=== PATIENT | male | born 1965 | race Caucasian/White ===

== ENCOUNTER 2022-11-18 11:58 | Inpatient (IN) | payer MEDICARE, SELFPAY ==
--- NOTE | ~2022-11-18 | XR_ITS ---
EXAMINATION: XR CHEST CLINICAL INFORMATION: Shortness of breath. COMPARISON: None available. TECHNIQUE: Frontal view of the chest was obtained. FINDINGS: Mild bibasilar linear markings are seen. There is minimal blunting of the left costophrenic angle. The upper lung [place] are clear. The heart and mediastinal structures are unremarkable. XR/XR chest 1V IMPRESSION: Minimal blunting of the left costophrenic angle could represent pleural scarring or very small left pleural effusion. Mild bibasilar atelectasis/scarring.
[2022-11-18 12:16] VITALS: BP 107/64; BP 110/70; PULSE 70; RESP 19; TEMP 36.9; O2SAT 92; O2SAT 96; BMI 32.2
--- NOTE | 2022-11-18 12:20 | PC.NURSE ---
pt was recently at [facility] (according to him) - today he reports concerns about his son as well as sun exposure my hands are all drying up and they're getting infected . pt reports hx of COPD and PTSD.
[2022-11-18 13:26] LABS: MANUAL DIFF FLAG NO
[2022-11-18 13:28] LABS: Basophils Percent Auto 0.4 % (0-2); Eosinophils Absolute Auto 0.2 X10*3/uL (0.0-0.4); Eosinophils Percent Auto 2.2 % (0-4); Hematocrit 39.1 % (42.0-52.0); Hemoglobin 13.7 g/dl (14.0-18.0); Imm Gran Abs Auto 0.02 X10*3/uL (0.00-0.03); Imm Gran Pct Auto 0.3 % (0.0-0.4); Lymphocytes Absolute Auto 1.6 X10*3/uL (1.2-4.9); Lymphocytes Percent Auto 21.2 % (20-40); Mean Corpuscular Hemoglobin 31.6 pg (27.0-33.0); Mean Corpuscular Volume 90.3 fL (80.0-98.0); Mean Platelet Volume 8.7 fL (9.4-12.4); Monocytes Absolute Auto 0.8 X10*3/uL (0.1-1.2); Neutrophils Percent Auto 65.9 % (45-73); Platelet Count 249 X10*3/uL (160-400); Red Blood Count 4.33 X10*6/uL (4.60-5.80); Red Cell Distribution Width 12.3 % (11.0-16.0); White Blood Count 7.6 X10*3/uL (4.8-10.8)
--- NOTE | 2022-11-18 13:53 | ED_ITS ---
HPI - General Adult General Chief complaint: General Medical Stated complaint: ANXIOUS Time Seen by Provider: 11/18/22 12:09 Source: patient and EMS Mode of arrival: EMS Limitations: no limitations History of Present Illness HPI narrative: 56-year-old male who denies medical history currently homeless presenting to the emergency department with depression, anxiety, hungry, reporting poor p.o. intake, he reports he has been living out of his car for about 5 years in his school parking lot. He reports he just feels tired, he states he has not been eating and drinking well. Increasing life stressors. Denies visual, auditory and tactile hallucinations. Denies suicidal and homicidal ideation. Patient denies fevers, chills, nausea, vomiting, abdominal pain, headache, vision changes, dizziness, chest pain and shortness of breath. Related Data Allergies Allergy/AdvReac Type Severity Reaction Status Date / Time propofol Allergy Unknown Verified 11/18/22 12:22 warfarin Allergy Unknown Verified 11/18/22 12:22 Review of Systems Review of Systems: Constitutional : No Weight loss, No Fever, No Chills, No Fatigue, No Malaise ENT/Mouth : No sore throat, No Rhinorrhea Eyes: No Eye Pain, No Swelling, No Redness Cardiovascular : No Chest Pain, No SOB, No Dyspnea on Exertion, No Orthopnea, No Edema, No Palpitations Respiratory : No Cough, No Sputum, No Wheezing Gastrointestinal : No Nausea, No Vomiting, No Diarrhea, No Constipation, No abdominal Pain, No Hematochezia, No Melena Genitourinary : No Dysuria, No Urinary Frequency, No Hematuria, Musculoskeletal : No joint pain, No Myalgias, No Joint Swelling Skin : No Skin Lesions, No rash Neuro : No Weakness, No Numbness, No Dizziness, No Headache Psych : + Anxiety/Panic, + Depression, No SI/HI All other systems reviewed and are negative Yes all other systems are reviewed and are negative [facility] Past Medical History Attestation statement: The following information was validated with the patient. Source: old records reviewed and nursing notes reviewed Social History Social History Smoked in Last 30 Days: Yes Use of substances other than those prescribed or required for medical reasons: No Advance Directives: No Advance Directives Information Provided: Yes Advance Directives on File: No Physical Exam ED Vital Signs: Vital Signs - 24 hr 11/18/22 12:16 Temperature 98.5 F Pulse Rate 70 Respiratory Rate 19 Blood Pressure 107/64 Pulse Oximetry 96 Oxygen Delivery Method Room Air BMI result Body Mass Index 32.2 vss Appearance: Alert.? Oriented X3.? No acute distress.? Head: Normocephalic, atraumatic, no step-offs or deformities Eyes: Pupils equal, round and reactive to light.? Neck: Normal inspection.? Neck supple.? CVS: Normal heart rate and rhythm.? Pulses normal.? Respiratory: No respiratory distress.? Breath sounds normal.? Abdomen: Soft and nontender.? Skin: Skin warm and dry.? Normal skin color.? Normal skin turgor.? Extremities: No lower extremity edema.? No calf ttp. 5/5 strength to bilateral upper and lower extremities Neuro: Oriented X 3.? No motor deficit.? No sensory deficit. CN 2-12 intact Course Reevaluation(s) Reevaluation #1: Patient now making vague statements that he feels short of breath, poor historian, patient does not have significant risk factors for PE. No hypercoagulable disorders, tells me he is only short of breath sometimes however not right now, not tachycardic or tachypneic, O2 sat stable. I do not suspect PE, pneumonia, CHF. However x-ray was ordered. CBC appears to be around patient's baseline. Chemistry no acute findings. Patient without chest pain no need for it troponin or EKG. UA pending. Time: 14:40 Reevaluation #2: Dimer negative. Chest x-ray showing minimal blunting of left costophrenic angle which could represent pleural scarring versus small left pleural effusion on auscultation breath sounds clear this is likely scarring. Patient saturating well on room air. At this time patient be placed in observation and medically cleared to allow more time to be evaluated by care team for anxiety, depression. At time observation was started patient common cooperative no acute distress will continue to monitor. UA, F[place]TH pending. Time: 16:05 Medical Decision Making Medical Decision Making [facility] Narrative: 56-year-old male presents with anxiety, depression, fatigue, malaise, poor p.o. intake, currently homeless. Denies SI and HI. Physical exam benign. Likely anxiety and depression, will rule out electrolyte abnormalities, UTI. Unlikely viral illness, no signs of intra-abdominal etiology, ACS, pneumonia. Plan medical clearance evaluation by behavioral health team Differential Diagnosis Differential Diagnoses: The differential diagnosis associated with the presentation includes Likely anxiety and depression, will rule out electrolyte abnormalities, UTI. Unlikely viral illness, no signs of intra-abdominal etiology, ACS, pneumonia. Admission/Observation Consideration of admission/observation: Escalation of care including admissio n/observation considered Lab Data MDM Lab Attestation statement: I reviewed the patient's lab results. 11/18/22 13:23 11/18/22 13:23 Labs: Lab Results 11/18/22 11/18/22 11/18/22 Range/Units 13:23 13:23 15:39 WBC 7.6 (4.8-10.8) X10*3/uL RBC 4.33 L (4.60-5.80) X10*6/uL Hgb 13.7 L (14.0-18.0) g/dl Hct 39.1 L (42.0-52.0) % MCV 90.3 (80.0-98.0) fL MCH 31.6 (27.0-33.0) pg MCHC 35.0 (31.0-36.0) g/dl RDW 12.3 (11.0-16.0) % Plt Count 249 (160-400) X10*3/uL MPV 8.7 L (9.4-12.4) fL Immature Gran % (Auto) 0.3 (0.0-0.4) % Neut % (Auto) 65.9 (45-73) % Lymph % (Auto) 21.2 (20-40) % [place] % (Auto) 10.0 (2-11) % Eos % (Auto) 2.2 (0-4) % Baso % (Auto) 0.4 (0-2) % Lymph # (Auto) 1.6 (1.2-4.9) X10*3/uL [place] # (Auto) 0.8 (0.1-1.2) X10*3/uL Eos # (Auto) 0.2 (0.0-0.4) X10*3/uL Baso # (Auto) 0.0 (0.0-0.2) X10*3/uL Abs Immat Gran (auto) 0.02 (0.00-0.03) X10*3/uL Absolute Neuts (auto) 5.0 (2.0-8.3) x10*3/uL Absolute Nucleated RBC 0.000 (0.0-0.012) X10*3/uL Nucleated RBC % (auto) 0.0 (0.0-0.2) /100WBC D-Dimer High Sensitivty < 150 NG/ML Sodium 138 (135-145) mmol/L Potassium 3.8 (3.3-5.1) mmol/L Chloride 105 (96-108) mmol/L Carbon Dioxide 25 (22-29) mmol/L Anion Gap 12 (12-20) BUN 13 (9-16) mg/dL Creatinine 0.66 (0.5-1.4) mg/dL Estim Creat Clear Calc 156.5 Estimated GFR > 60 Random Glucose 90 (60-115) mg/dL Calcium 8.4 (8.4-10.2) mg/dL Magnesium 2.2 (1.6-2.6) mg/dL Total Bilirubin 0.9 (0.0-1.0) mg/dL AST 25 (5-37) U/L ALT 24 (0-40) U/L Alkaline Phosphatase 75 (39-117) U/L Total Protein 5.4 L (6.5-8.0) g/dL Albumin 3.5 (3.5-5.0) g/dL Ethyl Alcohol < 10 mg/dL Core Measures AMI core measures followed: Yes Measure exclusions: not indicated Critical Care Time Critical Care Time Critical Care Time: No Discharge Plan Discharge Clinical Impression: Anxiety, Depression Patient Disposition: Still a Patient
[2022-11-18 13:57] LABS: Alanine Aminotransferase 24 U/L (0-40); Albumin Level 3.5 g/dL (3.5-5.0); Alkaline Phosphatase 75 U/L (39-117); Anion Gap 12 (12-20); Aspartate Amino Transferase 25 U/L (5-37); Bilirubin Total 0.9 mg/dL (0.0-1.0); Blood Urea Nitrogen 13 mg/dL (9-16); Calcium 8.4 mg/dL (8.4-10.2); Carbon Dioxide 25 mmol/L (22-29); Chloride 105 mmol/L (96-108); Creatinine Clr Calc Pharmacy 156.5; Estimated Glomerular Filt Rate > 60; Glucose Random 90 mg/dL (60-115); Magnesium 2.2 mg/dL (1.6-2.6); Potassium 3.8 mmol/L (3.3-5.1); Sodium 138 mmol/L (135-145); Total Protein 5.4 g/dL (6.5-8.0)
[2022-11-18 14:55] LABS: Ethanol < 10 mg/dL
[2022-11-18 16:03] LABS: D Dimer High Sensitivity < 150 NG/ML
[2022-11-18 16:48] VITALS: BP 114/71; PULSE 64; RESP 18; TEMP 36.9; O2SAT 95
--- NOTE | 2022-11-18 17:27 | PC.NURSE ---
PLACED ON 2L NC PT DROPS O2 SAT INTO THE 80'S WHEN SLEEPING, HE DOES REPORT HAVING HAD A CPAP IN THE PAST
--- NOTE | 2022-11-18 19:19 | PC.NURSE ---
Patient is up out of bed pacing in room. Patient came out of the room multiple times according to staff all of which addressed his questions and informed him that he can not be in the halls. I also informed patient of such and instructed on proper use of call systems.
--- NOTE | 2022-11-18 19:35 | PC.NURSE ---
Patient given a glass of water, 2 aubrey ales and a turkey sandwich.
[2022-11-18 20:00] VITALS: BP 121/61; PULSE 69; RESP 16; TEMP 36.2; O2SAT 99
--- NOTE | 2022-11-18 20:38 | PC.NURSE ---
Patient refusing to give urine sample states that hasn't had a clear stream since 2009 . Patient continues to wonder into the novak myself and other staff continue to redirect patient to room and informing patient that he is not allowed to wonder in the halls.
[2022-11-18 23:31] LABS: Appearance Urine Clear; Color Urine Yellow; Glucose Urine UA Negative (Negative); Leukocyte Esterase Urine Negative (Negative); Nitrite Urine Negative (Negative); Specific Gravity - Urine <= 1.005 (1.005-1.025); Urine Blood Negative (Negative); Urine Ketones Negative (Negative); Urine Protein Negative (Neg-Trace)
[2022-11-18 23:42] VITALS: BP 137/87; PULSE 76; RESP 20; TEMP 36.9; O2SAT 93
[2022-11-18 23:42] LABS: Amphetamine Screen Urine Not Detected (Not Detect); Barbiturates, Urine Not Detected (Not Detect); Benzodiazepines Screen Urine Not Detected (Not Detect); Cannabinoid Screen Urine Not Detected (Not Detect); Cocaine Screen Urine Not Detected (Not Detect); Fentanyl, urine Not Detected (Not Detect); Opiate Screen Urine Not Detected (Not Detect); Phencyclidine Screen Urine Not Detected (Not Detect)
--- NOTE | 2022-11-19 | ECG_ITS ---
Test Reason : medical clearance Blood Pressure : / mmHG Vent. Rate : 065 BPM Atrial Rate : 065 BPM P-R Int : 216 ms QRS Dur : 106 ms QT Int : 400 ms P-R-T Axes : 035 065 029 degrees QTc Int : 416 ms Sinus rhythm with 1st degree A-V block Otherwise normal ECG No previous ECGs available Referred By: Xiao Manzo Electronically Signed By:DILEEP GALLEGOS MD
[2022-11-19 06:00] VITALS: BP 132/86; PULSE 77; RESP 18; TEMP 37; O2SAT 99
--- NOTE | 2022-11-19 07:20 | PC.NURSE ---
patient a&ox3, ambulated independently with steady gait to bathroom, pt denied pain/discomfort, denies si/hi, pts vss, returned back to bed to continue sleeping, call mak within reach, will continue to monitor
--- NOTE | 2022-11-19 08:28 | PC.NURSE ---
care team in speaking with patient
[2022-11-19 09:45] VITALS: BP 111/68; PULSE 76; RESP 16; O2SAT 97
--- NOTE | 2022-11-19 11:37 | PC.NURSE ---
pt a&ox3, pacing in room, pt awaiting care team/hitting coach to reassess, pt being kept comfortable- po given per request, call mak within reach, will continue to monitor.
--- NOTE | 2022-11-19 12:17 | PC.NURSE ---
per nory-care team, patient is going to be a voluntary psych bed search. pt is not si/hi. per nory if patient changes his mind and wants to leave he is able to leave as his inpt stay will be voluntary.
--- NOTE | 2022-11-19 12:51 | PC.NURSE ---
pt changed over to hospital attire by security (aicha) bags have been taken and inventoried by security/locked up as well.
[2022-11-19 13:40] LABS: COVID-19 Test Negative (Negative); IDNOW Serial# 55D5AD1C
--- NOTE | 2022-11-19 16:08 | PHA.MEDREC ---
Pharmacy Consult ? Medication Reconciliation Pharmacy has completed the medication reconciliation. Spoke to patient to confirm meds. Patient states they filled at [facility] pharmacy. Called patient's pharmacy and they confirmed patient's meds; last given 11/09/22 for 14 day supply.
[2022-11-19 17:20] VITALS: BP 141/92; PULSE 66; RESP 18; TEMP 36.9; O2SAT 97
--- NOTE | 2022-11-19 18:38 | PC.NURSE ---
pt is constantly pacing inside his room and talking to himself and will talk to the hawkins on occasion.
--- NOTE | 2022-11-19 20:09 | PC.NURSE ---
Nurse to Nurse given to Elen on M5. M5 staff will come to transport patient to the unit
[2022-11-19 22:20] VITALS: BP 116/68; PULSE 67; RESP 18; TEMP 36.6; O2SAT 99
[2022-11-19] MEDS: OLANZapine 10 MG TABLET 20 MG PO (22:46)
--- NOTE | 2022-11-19 23:57 | PC.ADMIT ---
Patient is 56 year old male admitted on 11/19/22 from [facility] ED on a 12b. Patient brought to ED for feeling tired, dehydrated, increased life stressors, not eating or drinking well. Patient has history of inpt hospitalizations and noncompliance with meds, documented schizophrenia. Patient has been homeless and living in his car for the last 5 years, moving throughout [place]. Denies past suicide attempts, and denies past substance abuse. Toxicology negative and alcohol <10. Upon arrival to the unit, patient is pleasant upon approach. Patient experiencing flight of ideas and paranoid thoughts during admission process. No releases of information signed, patient ripped up forms multiple times. Pt observed throwing pamphlets at wall, self dialoguing and pacing unit. Patient able to calm self and apologizes for outbursts. Patient med compliant with PM medication and took shower. Patient is sitting in milieu self dialoguing as of this writing.
[2022-11-20] MEDS: traZODone HCL 50 MG TABLET PO (00:19)
[2022-11-20 06:00] VITALS: BP 131/74; PULSE 78; RESP 16; TEMP 36.6; O2SAT 96
[2022-11-20 08:14] LABS: Cholesterol 147 mg/dL; HDL Cholesterol 44 mg/dL; LDL Cholesterol Calculated 87 mg/dl; Triglycerides 80 mg/dL
[2022-11-20] MEDS: Loratadine 10 MG TABLET PO (08:16)
[2022-11-20 08:33] LABS: Estimated Average Glucose 97 mg/dL
[2022-11-20] MEDS: Ibuprofen 400 MG TABLET PO (09:16)
--- NOTE | 2022-11-20 10:41 | P.HPPS_ITS ---
HPI Date of Service: 11/20/22 Chief Complaint: disorganized, psychosis Sources of Information: patient interviewed, chart reviewed and crisis/core team assessment reviewed HPI Subjective Notes: Mullen Warning and Conditional Voluntary Narrative: Patient is a 56-year-old male on [address] with history of psychotic illness, likely schizoaffective disorder who presents after being picked up by police for disorganized behavior, found in a school parking lot unsure of where he was. Patient is calm, cooperative and polite though prone to being guarded and suspicious, got briefly agitated, thinking peers in the milieu were trying to listen in on his conversation to telegraphic typewriter operator. He is somewhat of a limited historian due to some disorganized thought process. Patient reports that he used to be on risperidone up to 9 mg; it is not sure how long ago he was on this medication but he seems to say he tapered himself off of at some point concerned about the possible residential side effects. Recently he was admitted to psychiatric hospital at [facility] in [place] for 2 weeks where he was started on Zyprexa which he says he has been taking regularly however he is concerned about this medication and has some paranoid delusions about the reasons it was started and the 1st place. Throughout discussion patient will intermittently make references to being followed, being persecuted by people or organizations, being poisoned, etc.; during interview several pigeons flew to the window and patient stopped to say that the bird was a Drone. He denies hearing actual voices but endorses getting electric sensations, radio waves, vibrations. He also made some references to being concerned about being on the unit too long and missing out on being in a movie with Woody Grajeda and Tree Mclaughlin. Patient reports that he has not gotten much sleep this past week; he says he has been on lithium in the past for ricky but stopped it saying it caused excessive urination and hyponatremia. Patient has insight to know that medications help him and was i nterested in clozapine, despite the need for weekly blood draws, given the relatively lowered risk of dystonia and tardive dyskinesia. Patient denies any SI or HI. Care team note reports that patient was not eating or drinking adequately or attending to ADLs; reports chronic homelessness and that he has been living out of his car for 5 years. Patient endorsed paranoid delusions about organizations or people trying to harm him. Reportedly patient lives a peripatetic lifestyle and travels back and forth from [place] to [place]. Past Psychiatric History: Long history of psychotic illness Medication history includes Risperdal, Zyprexa and lithium; other medication trials as well; likely trials of ECT Medical Evaluation Reviewed: Yes [facility] Medical History (Updated 11/21/22 @ 09:42 by Juan Antonio Olivares MD) Schizoaffective disorder, bipolar type Family History: Unknown Social History: Homeless, nomadic lifestyle, living out of his car, traveling to and from [place] to [place] Trauma History: Deferred Diagnostics Vital Signs (24Hr): Vital Signs - 24 hr 11/19/22 17:20 11/19/22 22:20 11/20/22 06:00 Temperature 98.4 F 97.8 F 97.8 F Pulse Rate 66 67 78 Respiratory Rate 18 18 16 Blood Pressure 141/92 H 116/68 131/74 Pulse Oximetry 97 99 96 Oxygen Delivery Method Room Air Room Air Room Air BMI result Body Mass Index 32.2 Labs 11/18/22 13:23 11/18/22 13:23 Labs: Laboratory Results - last 48 hr 11/18/22 11/18/22 11/18/22 13:23 13:23 15:39 WBC 7.6 RBC 4.33 L Hgb 13.7 L Hct 39.1 L MCV 90.3 MCH 31.6 MCHC 35.0 RDW 12.3 Plt Count 249 MPV 8.7 L Immature Gran % (Auto) 0.3 Neut % (Auto) 65.9 Lymph % (Auto) 21.2 [place] % (Auto) 10.0 Eos % (Auto) 2.2 Baso % (Auto) 0.4 Lymph # (Auto) 1.6 [place] # (Auto) 0.8 Eos # (Auto) 0.2 Baso # (Auto) 0.0 Abs Immat Gran (auto) 0.02 Absolute Neuts (auto) 5.0 Absolute Nucleated RBC 0.000 Nucleated RBC % (auto) 0.0 D-Dimer High Sensitivty < 150 Sodium 138 Potassium 3.8 Chloride 105 Carbon Dioxide 25 Anion Gap 12 BUN 13 Creatinine 0.66 Estim Creat Clear Calc 156.5 Estimated GFR > 60 Random Glucose 90 Estimat Average Glucose Hemoglobin A1c % Calcium 8.4 Magnesium 2.2 Total Bilirubin 0.9 AST 25 ALT 24 Alkaline Phosphatase 75 Total Protein 5.4 L Albumin 3.5 Triglycerides Cholesterol LDL Cholesterol, Calc HDL Cholesterol Urine Color Urine Appearance Urine pH Ur Specific [place] Urine Protein Urine Glucose (UA) Urine Ketones Urine Blood Urine Nitrite Ur Leukocyte Esterase Urine Opiates Screen Urine Fentanyl Screen Ur Barbiturates Screen Ur Phencyclidine Scrn Ur Amphetamines Screen U Benzodiazepines Scrn Urine Cocaine Screen U Marijuana (THC) Screen Ethyl Alcohol < 10 COVID-19 ([facility]ANCA) COVID-19 Clin Com 11/18/22 11/18/22 11/19/22 23:25 23:25 13:10 WBC RBC Hgb Hct MCV MCH MCHC RDW Plt Count MPV Immature Gran % (Auto) Neut % (Auto) Lymph % (Auto) [place] % (Auto) Eos % (Auto) Baso % (Auto) Lymph # (Auto) [place] # (Auto) Eos # (Auto) Baso # (Auto) Abs Immat Gran (auto) Absolute Neuts (auto) Absolute Nucleated RBC Nucleated RBC % (auto) D-Dimer High Sensitivty Sodium Potassium Chloride Carbon Dioxide Anion Gap BUN Creatinine Estim Creat Clear Calc Estimated GFR Random Glucose Estimat Average Glucose Hemoglobin A1c % Calcium Magnesium Total Bilirubin AST ALT Alkaline Phosphatase Total Protein Albumin Triglycerides Cholesterol LDL Cholesterol, Calc HDL Cholesterol Urine Color Yellow Urine Appearance Clear Urine pH 7.0 Ur Specific [place] <= 1.005 Urine Protein Negative Urine Glucose (UA) Negative Urine Ketones Negative Urine Blood Negative Urine Nitrite Negative Ur Leukocyte Esterase Negative Urine Opiates Screen Not Detected Urine Fentanyl Screen Not Detected Ur Barbiturates Screen Not Detected Ur Phencyclidine Scrn Not Detected Ur Amphetamines Screen Not Detected U Benzodiazepines Scrn Not Detected Urine Cocaine Screen Not Detected U Marijuana (THC) Screen Not Detected Ethyl Alcohol COVID-19 (FRANCA) Negative COVID-19 Clin Com See Note 11/20/22 11/20/22 07:51 07:51 WBC RBC Hgb Hct MCV MCH MCHC RDW Plt Count MPV Immature Gran % (Auto) Neut % (Auto) Lymph % (Auto) [place] % (Auto) Eos % (Auto) Baso % (Auto) Lymph # (Auto) [place] # (Auto) Eos # (Auto) Baso # (Auto) Abs Immat Gran (auto) Absolute Neuts (auto) Absolute Nucleated RBC Nucleated RBC % (auto) D-Dimer High Sensitivty Sodium Potassium Chloride Carbon Dioxide Anion Gap BUN Creatinine Estim Creat Clear Calc Estimated GFR Random Glucose Estimat Average Glucose 97 Hemoglobin A1c % 5.0 Calcium Magnesium Total Bilirubin AST ALT Alkaline Phosphatase Total Protein Albumin Triglycerides 80 Cholesterol 147 LDL Cholesterol, Calc 87 HDL Cholesterol 44 Urine Color Urine Appearance Urine pH Ur Specific [place] Urine Protein Urine Glucose (UA) Urine Ketones Urine Blood Urine Nitrite Ur Leukocyte Esterase Urine Opiates Screen Urine Fentanyl Screen Ur Barbiturates Screen Ur Phencyclidine Scrn Ur Amphetamines Screen U Benzodiazepines Scrn Urine Cocaine Screen U Marijuana (THC) Screen Ethyl Alcohol COVID-19 ([facility]ANCA) COVID-19 Clin Com Imaging Radiology Impressions: ITS Impressions Chest X-Ray 11/18/22 14:30 IMPRESSION: Minimal blunting of the left costophrenic angle could represent pleural scarring or very small left pleural effusion. Mild bibasilar atelectasis/scarring. Meds/Allergies Meds Home Medications Medication Instructions Recorded Confirmed Type albuterol sulfate 90 mcg/actuation 2 puff inhalation Q4-6H PRN 11/19/22 11/19/22 History aerosol inhaler Shortness Of Breath Or Wheezing atenolol 25 mg tablet 25 mg PO DAILY 11/19/22 11/19/22 History cetirizine 10 mg tablet 10 mg PO DAILY 11/19/22 11/19/22 History fexofenadine 180 mg tablet 180 mg PO DAILY PRN Allergy 11/19/22 11/19/22 History Symptoms ibuprofen 200 mg capsule 400 mg PO Q8H PRN Pain 11/19/22 11/19/22 History olanzapine 20 mg tablet 20 mg PO BEDTIME 11/19/22 11/19/22 History Allergies Allergies Allergy/AdvReac Type Severity Reaction Status Date / Time propofol Allergy Unknown Verified 11/18/22 12:22 warfarin Allergy Unknown Verified 11/18/22 12:22 Mental Status Exam Mental Status Exam Narrative: Pt is alert and oriented; behavior is cooperative, friendly and calm but also suspicious and guarded; patient is not in distress; dressed in casual attire with unkempt hair and scruffy facial hair; mood is described as okay and affect congruent; eye contact appropriate; Speech is normal rate, volume and prosody and not pressured; some mild psychomotor agitation present as patient is pacing the novak; thought process can be goal directed but is also disorganized; Thought content is on paranoid delusional thoughts but also on treatment; some grandiosity; denies any SI/HI. Patient internally preoccupied, self dialogueing and has some amount of AH Patients insight and judgment are impaired. Assessment & Plan Assessment & Plan (1) Schizoaffective disorder, bipolar type: Status: Acute Code(s): F25.0 - Schizoaffective disorder, bipolar type Plan Patient is a 56-year-old male on [address] with history of psychotic illness, likely schizoaffective disorder who presents after being picked up by police for disorganized behavior, found in a school parking lot unsure of where he was. Patient is calm, cooperative and polite though prone to being guarded and suspicious. He is somewhat of a limited historian due to some disorganized thought process. Patient reports that he used to be on risperidone up to 9 mg; it is not sure how long ago he was on this medication but he seems to say he tapered himself off of at some point concerned about the possible exterminator helper side effects. Recently he was admitted to psychiatric hospital at [facility] in [place] for 2 weeks where he was started on Zyprexa which he says he has been taking regularly however he is concerned about this medication and has some paranoid delusions about the reasons it was started and the 1st place. Throughout discussion patient will intermittently make references to being followed, being persecuted by people or organizations, being poisoned, etc.; during interview several pigeons flew to the window and patient stopped to say that the bird was a Drone. He denies hearing actual voices but endorses getting electric sensations, radio waves, vibrations. He also made some references to being concerned about being on the unit too long and missing out on being in a movie with Woody Grajeda and Tree Mclaughlin. Patient reports that he has not gotten much sleep this past week; he says he has been on lithium in the past for ricky but stopped it saying it caused excessive urination and hyponatremia. Patient has insight to know that medications help him and was interested in clozapine, despite the need for weekly blood draws, given the relatively lowered risk of dystonia and tardive dyskinesia. Patient denies any SI or HI. PLAN Section 12 [address]; wants treatment and may be amenable to signing in Q 15 minute checks Continue Zyprexa 20 mg g q.h.s. for now Patient interested in clozapine; will strongly consider however lack of permanent residence makes weekly blood draws a barrier Will seek Collateral Patient educated on: diagnosis and medication risk/benefits Informed Consent: understands Reason for continued inpatient stay Substantial Risk for: inability to function Statement Statement: I have reviewed the history and physical and performed a pertinent examination on my patient. No changes have occurred unless specified. If the History and Physical was not performed prior to admission, the Hospitalist's service will be consulted for completing the admission physical. Time Spent With Patient Time: Total time managing care of this patient today ____ minutes.
[2022-11-20 18:00] VITALS: BP 152/86; PULSE 85; TEMP 36.5; O2SAT 98
[2022-11-20] MEDS: OLANZapine 5 MG TABLET PO (18:09)
[2022-11-20] MEDS: Albuterol Sulfate 90 MCG 8 GM INHALER 2 PUFF INHALE (18:09)
[2022-11-20] MEDS: OLANZapine 10 MG TABLET 20 MG PO (20:23)
--- NOTE | 2022-11-20 23:28 | PC.NURSE ---
Patient was quite anxious this shift. She was very focused on the acid reflux she was experiencing and this greeting card writer communicated patient's concerns to oncall doctor Dr. Jorge Koenig who ordered Carafate 1 gm po x 1 dose, Priolosec 20 mg po x 1 for GERD. Patient was also upset that she was not being prescribed Seroquel 200 mg po at HS. New order was given by Dr. Jorge Koenig. Patient received the meds Dr. Jorge Koenig ordered. Staff also assisted her with raising the head of her bed with extra blankets to facilitate sitting up while in bed to decrease reflux symptoms. Patient mentioned to t/w she has had GERD symptoms since the age of 6. She also has a history of vomiting blood.
[2022-11-21] MEDS: Loratadine 10 MG TABLET PO (08:44)
[2022-11-21 08:45] VITALS: BP 132/96; PULSE 79; RESP 16; TEMP 36.5; O2SAT 94
--- NOTE | 2022-11-21 14:55 | HO.PSYCHPN ---
Subjective Subjective Date of Service: 11/21/22 Reason For Visit: disorganized, psychosis Subjective Notes: Conditional Voluntary Healthcare Proxy: No Guardianship: No Medical Problems Affecting Mental Status: No Interim History: Met with pt who was forthcoming, but confused, tangential and psychotic with paranoia and sx of persecuatory delusions. He reports a 14cm aneurysm diagnosed by ECHO at [facility] ~5 years ago. Also recent follow up with Dr. Boyle. Pt given DINESH to sign so proper info could be accessed to provide consult and treatment. Pt reports he will need a notary and investment professional. He related the consent to the [employer] campaign and the amount of funds raised and used for elections. Asked pt if we could provide a new cardiac consult and ECHO. He will consider, but declines at this time. We will need further clarity before other psychotropic plans are discussed. Pt states, Dr. Boyle told me with my heart condition I would screaming in 60 seconds Encouraged pt to allow further eval and clarification to provide appropriate care. He will consider. Medication Compliance: Intermittent Side effects from medications: No Attending Groups: No Review of Systems Acute medical concerns: Yes ?cardiac aneurysm-refusing current follow up. Medical Review of Systems: unchanged Mental Status Exam Mental Status Exam Patient Appearance: Appropriate Patient Orientation: Person and Place Level of Consciousness: Alert Patient Behavior: Appropriate, Guarded, Talkative, Cooperative, Suspicious, Restless, Anxious, Fearful, Resistive to Care, Distractible and Good Eye Contact Mood Description: Constricted Affect Description: Constricted Patient Cognition Impaired: No Ability to Follow Directions: Fair Speech Pattern: Spontaneous Speech Memory Description: Remote Impaired and Episodic Impaired Hallucinations: None Delusions: Paranoid Ideation and Present Perceptual Disturbances: Depersonalization and Derealization Thought Process: Illogical and Distracted Thought Content: positive for Flight of Ideas, positive for Preoccupation, positive for Thought Blocking, positive for Tangential, positive for Suicidal Ideation (denies) and positive for Homicidal Ideation (denies) Depressive Symptoms: Diff. Making Decisions Abnormal Motor Activity Signs and Symptoms: Restlessness Judgement: Poor Diagnostics Vital Signs (24Hr): Vital Signs - 24 hr 11/20/22 18:00 11/21/22 08:45 Temperature 97.7 F 97.7 F Pulse Rate 85 79 Respiratory Rate 16 Blood Pressure 152/86 H 132/96 H Pulse Oximetry 98 94 Oxygen Delivery Method Room Air Room Air BMI result Body Mass Index 32.2 Labs 11/18/22 13:23 11/18/22 13:23 Labs: Laboratory Results - last 48 hr 11/20/22 11/20/22 07:51 07:51 Estimat Average Glucose 97 Hemoglobin A1c % 5.0 Triglycerides 80 Cholesterol 147 LDL Cholesterol, Calc 87 HDL Cholesterol 44 Imaging Radiology Impressions: ITS Impressions Chest X-Ray 11/18/22 14:30 IMPRESSION: Minimal blunting of the left costophrenic angle could represent pleural scarring or very small left pleural effusion. Mild bibasilar atelectasis/scarring. Medications Medications Current Medications Acetaminophen (Acetaminophen 325 Mg Tablet) 650 mg PO Q6H PRN PRN Reason: Headache/Pain Mild Scale (1-3) Al Hydroxide/Mg Hydroxide (Magnesium Hydrox/Alum Hydrox 30 Ml Oral.Susp) 30 ml PO Q6H PRN PRN Reason: Heartburn/Nausea Albuterol Sulfate (Albuterol Sulfate 90 Mcg 8 Gm Inhaler) 2 puff INHALE Q4H PRN PRN Reason: Shortness Of Breath Or Wheezing Last Admin: 11/20/22 18:09 Dose: 2 puff Hydroxyzine HCl (Hydroxyzine Hcl 25 Mg Tablet) 25 mg PO Q6H PRN PRN Reason: Anxiety Ibuprofen (Ibuprofen 400 Mg Tablet) 400 mg PO Q8H PRN PRN Reason: Pain, Mild (Pain Scale 1-3) Last Admin: 11/20/22 09:16 Dose: 400 mg Loratadine (Loratadine 10 Mg Tablet) 10 mg PO DAILY LIANA Last Admin: 11/21/22 08:44 Dose: 10 mg Magnesium Hydroxide (Milk Of Magnesia 30 Ml Oral.Susp) 30 ml PO DAILY PRN PRN Reason: Constipation Nicotine Polacrilex (Nicotine Polacrilex 2 Mg Gum) 4 mg BUCCAL Q2H PRN PRN Reason: Nicotine Cravings Olanzapine (Olanzapine 10 Mg Tablet) 20 mg PO BEDTIME LIANA Last Admin: 11/20/22 20:23 Dose: 20 mg Olanzapine (Olanzapine 5 Mg Tablet) 5 mg PO TID PRN PRN Reason: agitation Last Admin: 11/20/22 18:09 Dose: 5 mg Trazodone HCl (Trazodone Hcl 50 Mg Tablet) 50 mg PO BEDTIME MRX1 PRN PRN Reason: Insomnia Last Admin: 11/20/22 00:19 Dose: 50 mg Allergies Allergies Allergy/AdvReac Type Severity Reaction Status Date / Time propofol Allergy Unknown Verified 11/18/22 12:22 warfarin Allergy Unknown Verified 11/18/22 12:22 Assessment & Plan Assessment & Plan (1) Schizoaffective disorder, bipolar type: Status: Acute Code(s): F25.0 - Schizoaffective disorder, bipolar type Plan Patient is a 56-year-old male on Section 12B with history of psychotic illness, likely schizoaffective disorder who presents after being picked up by police for disorganized behavior, found in a school parking lot unsure of where he was. Patient is calm, cooperative and polite though prone to being guarded and suspicious. He is somewhat of a limited historian due to some disorganized thought process. Patient reports that he used to be on risperidone up to 9 mg; it is not sure how long ago he was on this medication but he seems to say he tapered himself off of at some point concerned about the possible long term acute care registered nurse side effects. Recently he was admitted to psychiatric hospital at [facility] in [place] for 2 weeks where he was started on Zyprexa which he says he has been taking regularly however he is concerned about this medication and has some paranoid delusions about the reasons it was started and the 1st place. Throughout discussion patient will intermittently make references to being followed, being persecuted by people or organizations, being poisoned, etc.; during interview several pigeons flew to the window and patient stopped to say that the bird was a Drone. He denies hearing actual voices but endorses getting electric sensations, radio waves, vibrations. He also made some references to being concerned about being on the unit too long and missing out on being in a movie with Woody Grajeda and Tree Mclaughlin. Patient reports that he has not gotten much sleep this past week; he says he has been on lithium in the past for ricky but stopped it saying it caused excessive urination and hyponatremia. Patient has insight to know that medications help him and was interested in clozapine, despite the need for weekly blood draws, given the relatively lowered risk of dystonia and tardive dyskinesia. Patient denies any SI or HI. PLAN Section 12 B; wants treatment and may be amenable to signing in Q 15 minute checks Continue Zyprexa 20 mg g q.h.s. for now Patient interested in clozapine; will strongly consider however lack of permanent residence makes weekly blood draws a barrier Will seek Collateral 11/21/22 Continue Olanzapine Encourage collateral contact consent Patient educated on: therapeutic strategies Informed Consent: further education needed Reason for continued inpatient stay Substantial Risk for: med/psych decompensation Time Spent With Patient Time: Total time managing care of this patient today ____ minutes.
[2022-11-21 18:00] VITALS: BP 126/88; PULSE 96; TEMP 36.4; O2SAT 97
[2022-11-21] MEDS: OLANZapine 10 MG TABLET 20 MG PO (21:01)
[2022-11-22] MEDS: traZODone HCL 50 MG TABLET PO ×2 (00:11→21:13)
[2022-11-22 08:06] VITALS: BP 137/88; PULSE 102; RESP 16; TEMP 36.7; O2SAT 93
[2022-11-22] MEDS: OLANZapine 5 MG TABLET PO (08:57)
[2022-11-22] MEDS: Loratadine 10 MG TABLET PO (08:57)
[2022-11-22 15:48] VITALS: BP 166/88; PULSE 89; TEMP 36.6
--- NOTE | 2022-11-22 17:00 | HO.PSYCHPN ---
Subjective Subjective Date of Service: 11/22/22 Reason For Visit: disorganized, psychosis Subjective Notes: Section 7 Healthcare Proxy: No Guardianship: No Medical Problems Affecting Mental Status: No Interim History: Discussed Section 7 with pt and rationale. He remains disorganized, manic, tangential. He responded by questioning me about my employer-was it [employer]. Believes a film is being made. Discussed medications. Discussed initiation of Depakote, pt asks if tw is named from the [employer] [place] song and proceeds to sing. Discussed increase of Olanzapine. Pt discussed his conspiracy theory regarding Osvaldo Carson. Pt acknowledged feeling safe on the unit, well cared for, proper food choices, feeling treated well. I expressed our concern for his health and why we are having him remain in patient. He responded, I thank you all. He remained hyperverbal, with much self-dialogue but was very present and visable in milieu. Medication Compliance: Yes Side effects from medications: No Attending Groups: No Review of Systems Acute medical concerns: No Medical Review of Systems: unchanged Mental Status Exam Mental Status Exam Patient Appearance: Appropriate Patient Orientation: Person and Place Level of Consciousness: Alert Patient Behavior: Appropriate, Guarded, Talkative, Cooperative, Suspicious, Restless, Anxious, Fearful, Resistive to Care, Distractible and Good Eye Contact Mood Description: Constricted Affect Description: Constricted Patient Cognition Impaired: No Ability to Follow Directions: Fair Speech Pattern: Spontaneous Speech Memory Description: Remote Impaired and Episodic Impaired Hallucinations: None Delusions: Paranoid Ideation and Present Perceptual Disturbances: Depersonalization and Derealization Thought Process: Illogical and Distracted Thought Content: positive for Flight of Ideas, positive for Preoccupation, positive for Thought Blocking, positive for Tangential, positive for Suicidal Ideation (denies) and positive for Homicidal Ideation (denies) Depressive Symptoms: Diff. Making Decisions Abnormal Motor Activity Signs and Symptoms: Restlessness Judgement: Poor Diagnostics Vital Signs (24Hr): Vital Signs - 24 hr 11/21/22 18:00 11/22/22 08:06 11/22/22 15:48 Temperature 97.6 F 98.0 F 98 F Pulse Rate 96 102 H 89 Respiratory Rate 16 Blood Pressure 126/88 137/88 166/88 H Pulse Oximetry 97 93 Oxygen Delivery Method Room Air Room Air BMI result Body Mass Index 32.2 Labs 11/18/22 13:23 11/18/22 13:23 Imaging Radiology Impressions: ITS Impressions Chest X-Ray 11/18/22 14:30 IMPRESSION: Minimal blunting of the left costophrenic angle could represent pleural scarring or very small left pleural effusion. Mild bibasilar atelectasis/scarring. Medications Medications Current Medications Acetaminophen (Acetaminophen 325 Mg Tablet) 650 mg PO Q6H PRN PRN Reason: Headache/Pain Mild Scale (1-3) Al Hydroxide/Mg Hydroxide (Magnesium Hydrox/Alum Hydrox 30 Ml Oral.Susp) 30 ml PO Q6H PRN PRN Reason: Heartburn/Nausea Albuterol Sulfate (Albuterol Sulfate 90 Mcg 8 Gm Inhaler) 2 puff INHALE Q4H PRN PRN Reason: Shortness Of Breath Or Wheezing Last Admin: 11/20/22 18:09 Dose: 2 puff Divalproex Sodium (Divalproex Sodium Er 500 Mg Tab.Er.24h) 500 mg PO BEDTIME LIANA Hydroxyzine HCl (Hydroxyzine Hcl 25 Mg Tablet) 25 mg PO Q6H PRN PRN Reason: Anxiety Ibuprofen (Ibuprofen 400 Mg Tablet) 400 mg PO Q8H PRN PRN Reason: Pain, Mild (Pain Scale 1-3) Last Admin: 11/20/22 09:16 Dose: 400 mg Loratadine (Loratadine 10 Mg Tablet) 10 mg PO DAILY LIANA Last Admin: 11/22/22 08:57 Dose: 10 mg Magnesium Hydroxide (Milk Of Magnesia 30 Ml Oral.Susp) 30 ml PO DAILY PRN PRN Reason: Constipation Nicotine Polacrilex (Nicotine Polacrilex 2 Mg Gum) 4 mg BUCCAL Q2H PRN PRN Reason: Nicotine Cravings Olanzapine (Olanzapine 5 Mg Tablet) 5 mg PO TID PRN PRN Reason: agitation Last Admin: 11/22/22 08:57 Dose: 5 mg Olanzapine (Olanzapine 10 Mg Tablet) 30 mg PO BEDTIME LIANA Trazodone HCl (Trazodone Hcl 50 Mg Tablet) 50 mg PO BEDTIME MRX1 PRN PRN Reason: Insomnia Last Admin: 11/22/22 00:11 Dose: 50 mg Allergies Allergies Allergy/AdvReac Type Severity Reaction Status Date / Time propofol Allergy Unknown Verified 11/18/22 12:22 warfarin Allergy Unknown Verified 11/18/22 12:22 Assessment & Plan Assessment & Plan (1) Schizoaffective disorder, bipolar type: Status: Acute Code(s): F25.0 - Schizoaffective disorder, bipolar type Plan Patient is a 56-year-old male on Section 12B with history of psychotic illness, likely schizoaffective disorder who presents after being picked up by police for disorganized behavior, found in a school parking lot unsure of where he was. Patient is calm, cooperative and polite though prone to being guarded and suspicious. He is somewhat of a limited historian due to some disorganized thought process. Patient reports that he used to be on risperidone up to 9 mg; it is not sure how long ago he was on this medication but he seems to say he tapered himself off of at some point concerned about the possible correction side effects. Recently he was admitted to psychiatric hospital at [facility] in [place] for 2 weeks where he was started on Zyprexa which he says he has been taking regularly however he is concerned about this medication and has some paranoid delusions about the reasons it was started and the 1st place. Throughout discussion patient will intermittently make references to being followed, being persecuted by people or organizations, being poisoned, etc.; during interview several pigeons flew to the window and patient stopped to say that the bird was a Drone. He denies hearing actual voices but endorses getting electric sensations, radio waves, vibrations. He also made some references to being concerned about being on the unit too long and missing out on being in a movie with Woody Grajeda and Tree Mclaughlin. Patient reports that he has not gotten much sleep this past week; he says he has been on lithium in the past for ricky but stopped it saying it caused excessive urination and hyponatremia. Patient has insight to know that medications help him and was interested in clozapine, despite the need for weekly blood draws, given the relatively lowered risk of dystonia and tardive dyskinesia. Patient denies any SI or HI. PLAN Section 12 B; wants treatment and may be amenable to signing in Q 15 minute checks Continue Zyprexa 20 mg g q.h.s. for now Patient interested in clozapine; will strongly consider however lack of permanent residence makes weekly blood draws a barrier Will seek Collateral 11/21/22 Continue Olanzapine Encourage collateral contact consent 11/22/22 Increase Olanzapine to 30 mg HS Depakote ER 500 mg HS Patient educated on: medication risk/benefits Informed Consent: does not understand Reason for continued inpatient stay Substantial Risk for: rapid decompensation Time Spent With Patient Time: Total time managing care of this patient today ____ minutes.
[2022-11-22] MEDS: Acetaminophen 325 MG TABLET 650 MG PO (19:04)
[2022-11-22] MEDS: Throat Lozenge, Medicated LOZENGE 1 LOZENGE MUCOUS MEM (20:21)
[2022-11-22] MEDS: OLANZapine 10 MG TABLET 30 MG PO (21:12)
[2022-11-22] MEDS: Divalproex Sodium ER 500 MG TAB.ER.24H PO (21:15)
[2022-11-23 09:08] VITALS: BP 134/84; PULSE 99; RESP 16; TEMP 36.4; O2SAT 95
[2022-11-23] MEDS: Loratadine 10 MG TABLET PO (09:11)
[2022-11-23 16:18] VITALS: BP 117/74; PULSE 94; TEMP 36.6
--- NOTE | 2022-11-23 16:22 | HO.PSYCHPN ---
Subjective Subjective Date of Service: 11/23/22 Reason For Visit: disorganized, psychosis Subjective Notes: Section 7 Healthcare Proxy: No Guardianship: No Medical Problems Affecting Mental Status: No Interim History: Tolerating increase in Olanzapine and addition of Depakote. Appears to be slowing down. Reports today he is feeling more intact , but tired. Will continue current regime Medication Compliance: Yes Side effects from medications: No Attending Groups: Intermittent Review of Systems Acute medical concerns: No Medical Review of Systems: unchanged Mental Status Exam Mental Status Exam Patient Appearance: Appropriate Patient Orientation: Person and Place Level of Consciousness: Alert Patient Behavior: Appropriate, Guarded, Talkative, Cooperative, Suspicious, Restless, Anxious, Fearful, Resistive to Care, Distractible and Good Eye Contact Mood Description: Constricted Affect Description: Constricted Patient Cognition Impaired: No Ability to Follow Directions: Fair Speech Pattern: Spontaneous Speech Memory Description: Remote Impaired and Episodic Impaired Hallucinations: None Delusions: Paranoid Ideation and Present Perceptual Disturbances: Depersonalization and Derealization Thought Process: Illogical and Distracted Thought Content: positive for Flight of Ideas, positive for Preoccupation, positive for Thought Blocking, positive for Tangential, positive for Suicidal Ideation (denies) and positive for Homicidal Ideation (denies) Depressive Symptoms: Diff. Making Decisions Abnormal Motor Activity Signs and Symptoms: Restlessness Judgement: Poor Diagnostics Vital Signs (24Hr): Vital Signs - 24 hr 11/23/22 09:08 11/23/22 16:18 Temperature 97.6 F 98 F Pulse Rate 99 94 Respiratory Rate 16 Blood Pressure 134/84 117/74 Pulse Oximetry 95 Oxygen Delivery Method Room Air BMI result Body Mass Index 32.2 Labs 11/18/22 13:23 11/18/22 13:23 Imaging Radiology Impressions: ITS Impressions Chest X-Ray 11/18/22 14:30 IMPRESSION: Minimal blunting of the left costophrenic angle could represent pleural scarring or very small left pleural effusion. Mild bibasilar atelectasis/scarring. Medications Medications Current Medications Acetaminophen (Acetaminophen 325 Mg Tablet) 650 mg PO Q6H PRN PRN Reason: Headache/Pain Mild Scale (1-3) Last Admin: 11/22/22 19:04 Dose: 650 mg Al Hydroxide/Mg Hydroxide (Magnesium Hydrox/Alum Hydrox 30 Ml Oral.Susp) 30 ml PO Q6H PRN PRN Reason: Heartburn/Nausea Albuterol Sulfate (Albuterol Sulfate 90 Mcg 8 Gm Inhaler) 2 puff INHALE Q4H PRN PRN Reason: Shortness Of Breath Or Wheezing Last Admin: 11/20/22 18:09 Dose: 2 puff Benzocaine (Throat Lozenge, Medicated Lozenge) 1 lozenge MUCOUS MEM Q2H PRN PRN Reason: Sore Throat Last Admin: 11/22/22 20:21 Dose: 1 lozenge Divalproex Sodium (Divalproex Sodium Er 500 Mg Tab.Er.24h) 500 mg PO BEDTIME [facility] Last Admin: 11/22/22 21:15 Dose: 500 mg Hydroxyzine HCl (Hydroxyzine Hcl 25 Mg Tablet) 25 mg PO Q6H PRN PRN Reason: Anxiety Ibuprofen (Ibuprofen 400 Mg Tablet) 400 mg PO Q8H PRN PRN Reason: Pain, Mild (Pain Scale 1-3) Last Admin: 11/20/22 09:16 Dose: 400 mg Loratadine (Loratadine 10 Mg Tablet) 10 mg PO DAILY [facility] Last Admin: 11/23/22 09:11 Dose: 10 mg Magnesium Hydroxide (Milk Of Magnesia 30 Ml Oral.Susp) 30 ml PO DAILY PRN PRN Reason: Constipation Nicotine Polacrilex (Nicotine Polacrilex 2 Mg Gum) 4 mg BUCCAL Q2H PRN PRN Reason: Nicotine Cravings Olanzapine (Olanzapine 5 Mg Tablet) 5 mg PO TID PRN PRN Reason: agitation Last Admin: 11/22/22 08:57 Dose: 5 mg Olanzapine (Olanzapine 10 Mg Tablet) 30 mg PO BEDTIME [facility] Last Admin: 11/22/22 21:12 Dose: 30 mg Trazodone HCl (Trazodone Hcl 50 Mg Tablet) 50 mg PO BEDTIME MRX1 PRN PRN Reason: Insomnia Last Admin: 11/22/22 21:13 Dose: 50 mg Allergies Allergies Allergy/AdvReac Type Severity Reaction Status Date / Time propofol Allergy Unknown Verified 11/18/22 12:22 warfarin Allergy Unknown Verified 11/18/22 12:22 Assessment & Plan Assessment & Plan (1) Schizoaffective disorder, bipolar type: Status: Acute Code(s): F25.0 - Schizoaffective disorder, bipolar type Plan Patient is a 56-year-old male on Section 12B with history of psychotic illness, likely schizoaffective disorder who presents after being picked up by police for disorganized behavior, found in a school parking lot unsure of where he was. Patient is calm, cooperative and polite though prone to being guarded and suspicious. He is somewhat of a limited historian due to some disorganized thought process. Patient reports that he used to be on risperidone up to 9 mg; it is not sure how long ago he was on this medication but he seems to say he tapered himself off of at some point concerned about the possible penitentiary side effects. Recently he was admitted to psychiatric hospital at [facility] in [place] for 2 weeks where he was started on Zyprexa which he says he has been taking regularly however he is concerned about this medication and has some paranoid delusions about the reasons it was started and the 1st place. Throughout discussion patient will intermittently make references to being followed, being persecuted by people or organizations, being poisoned, etc.; during interview several pigeons flew to the window and patient stopped to say that the bird was a Drone. He denies hearing actual voices but endorses getting electric sensations, radio waves, vibrations. He also made some references to being concerned about being on the unit too long and missing out on being in a movie with Woody Grajeda and Tree Mclaughlin. Patient reports that he has not gotten much sleep this past week; he says he has been on lithium in the past for ricky but stopped it saying it caused excessive urination and hyponatremia. Patient has insight to know that medications help him and was interested in clozapine, despite the need for weekly blood draws, given the relatively lowered risk of dystonia and tardive dyskinesia. Patient denies any SI or HI. PLAN Section 12 B; wants treatment and may be amenable to signing in Q 15 minute checks Continue Zyprexa 20 mg g q.h.s. for now Patient interested in clozapine; will strongly consider however lack of permanent residence makes weekly blood draws a barrier Will seek Collateral 11/21/22 Continue Olanzapine Encourage collateral contact consent 11/22/22 Increase Olanzapine to 30 mg HS Depakote ER 500 mg HS 11/23/22 Continue current regime Diagnostics next week-Valproate level, CBC Continue to work on consents for medical collateral Patient educated on: medication risk/benefits and therapeutic strategies Informed Consent: further education needed Reason for continued inpatient stay Substantial Risk for: inability to function and med/psych decompensation Time Spent With Patient Time: Total time managing care of this patient today ____ minutes.
[2022-11-23] MEDS: OLANZapine 10 MG TABLET 30 MG PO (18:58)
[2022-11-23] MEDS: traZODone HCL 50 MG TABLET PO (18:58)
[2022-11-23] MEDS: Divalproex Sodium ER 500 MG TAB.ER.24H PO (18:58)
[2022-11-24 06:00] VITALS: BP 132/78; PULSE 104; RESP 18; TEMP 36.2; O2SAT 93
[2022-11-24] MEDS: Loratadine 10 MG TABLET PO (08:51)
--- NOTE | 2022-11-24 10:05 | P.PNPSI_ITS ---
Subjective Subjective Date of Service: 11/24/22 Reason For Visit: disorganized, psychosis Interim History: met with patient; discussed with team Patient remains manic, rambling and talking to himself as he walks the halls; difficult with which to engage given that he talks about various unrelated things. Did sleep last night. Mental Status Exam Mental Status Exam Patient Appearance: Appropriate Patient Orientation: Person and Place Level of Consciousness: Alert Patient Behavior: Appropriate, Guarded, Talkative, Cooperative, Suspicious, Restless, Anxious, Fearful, Resistive to Care, Distractible and Good Eye Contact Mood Description: Constricted Affect Description: Constricted Patient Cognition Impaired: No Ability to Follow Directions: Fair Speech Pattern: Spontaneous Speech Memory Description: Remote Impaired and Episodic Impaired Hallucinations: None Delusions: Paranoid Ideation and Present Perceptual Disturbances: Depersonalization and Derealization Thought Process: Illogical and Distracted Thought Content: positive for Flight of Ideas, positive for Preoccupation, positive for Thought Blocking, positive for Tangential, positive for Suicidal Ideation (denies) and positive for Homicidal Ideation (denies) Depressive Symptoms: Diff. Making Decisions Abnormal Motor Activity Signs and Symptoms: Restlessness Judgement: Poor Diagnostics Vital Signs (24Hr): Vital Signs - 24 hr 11/23/22 16:18 11/24/22 06:00 Temperature 98 F 97.2 F Pulse Rate 94 104 H Respiratory Rate 18 Blood Pressure 117/74 132/78 Pulse Oximetry 93 Oxygen Delivery Method Room Air BMI result Body Mass Index 32.2 Labs 11/18/22 13:23 11/18/22 13:23 Imaging Radiology Impressions: ITS Impressions Chest X-Ray 11/18/22 14:30 IMPRESSION: Minimal blunting of the left costophrenic angle could represent pleural scarring or very small left pleural effusion. Mild bibasilar atelectasis/scarring. Medications Medications Current Medications Acetaminophen (Acetaminophen 325 Mg Tablet) 650 mg PO Q6H PRN PRN Reason: Headache/Pain Mild Scale (1-3) Last Admin: 11/22/22 19:04 Dose: 650 mg Al Hydroxide/Mg Hydroxide (Magnesium Hydrox/Alum Hydrox 30 Ml Oral.Susp) 30 ml PO Q6H PRN PRN Reason: Heartburn/Nausea Albuterol Sulfate (Albuterol Sulfate 90 Mcg 8 Gm Inhaler) 2 puff INHALE Q4H PRN PRN Reason: Shortness Of Breath Or Wheezing Last Admin: 11/20/22 18:09 Dose: 2 puff Benzocaine (Throat Lozenge, Medicated Lozenge) 1 lozenge MUCOUS MEM Q2H PRN PRN Reason: Sore Throat Last Admin: 11/22/22 20:21 Dose: 1 lozenge Divalproex Sodium (Divalproex Sodium Er 500 Mg Tab.Er.24h) 500 mg PO BEDTIME LIANA Last Admin: 11/23/22 18:58 Dose: 500 mg Hydroxyzine HCl (Hydroxyzine Hcl 25 Mg Tablet) 25 mg PO Q6H PRN PRN Reason: Anxiety Ibuprofen (Ibuprofen 400 Mg Tablet) 400 mg PO Q8H PRN PRN Reason: Pain, Mild (Pain Scale 1-3) Last Admin: 11/20/22 09:16 Dose: 400 mg Loratadine (Loratadine 10 Mg Tablet) 10 mg PO DAILY LIANA Last Admin: 11/24/22 08:51 Dose: 10 mg Magnesium Hydroxide (Milk Of Magnesia 30 Ml Oral.Susp) 30 ml PO DAILY PRN PRN Reason: Constipation Nicotine Polacrilex (Nicotine Polacrilex 2 Mg Gum) 4 mg BUCCAL Q2H PRN PRN Reason: Nicotine Cravings Olanzapine (Olanzapine 5 Mg Tablet) 5 mg PO TID PRN PRN Reason: agitation Last Admin: 11/22/22 08:57 Dose: 5 mg Olanzapine (Olanzapine 10 Mg Tablet) 30 mg PO BEDTIME LIANA Last Admin: 11/23/22 18:58 Dose: 30 mg Trazodone HCl (Trazodone Hcl 50 Mg Tablet) 50 mg PO BEDTIME MRX1 PRN PRN Reason: Insomnia Last Admin: 11/23/22 18:58 Dose: 50 mg Allergies Allergies Allergy/AdvReac Type Severity Reaction Status Date / Time propofol Allergy Unknown Verified 11/18/22 12:22 warfarin Allergy Unknown Verified 11/18/22 12:22 Assessment & Plan Assessment & Plan (1) Schizoaffective disorder, bipolar type: Status: Acute Code(s): F25.0 - Schizoaffective disorder, bipolar type Plan Patient is a 56-year-old male on Section 12B with history of psychotic illness, likely schizoaffective disorder who presents after being picked up by police for disorganized behavior, found in a school parking lot unsure of where he was. Patient is calm, cooperative and polite though prone to being guarded and suspicious. He is somewhat of a limited historian due to some disorganized thought process. Patient reports that he used to be on risperidone up to 9 mg; it is not sure how long ago he was on this medication but he seems to say he tapered himself off of at some point concerned about the possible retirement side effects. Recently he was admitted to psychiatric hospital at [facility] in [place] for 2 weeks where he was started on Zyprexa which he says he has been taking regularly however he is concerned about this medication and has some paranoid delusions about the reasons it was started and the 1st place. Throughout discussion patient will intermittently make references to being followed, being persecuted by people or organizations, being poisoned, etc.; during interview several pigeons flew to the window and patient stopped to say that the bird was a Drone. He denies hearing actual voices but endorses getting electric sensations, radio waves, vibrations. He also made some references to being concerned about being on the unit too long and missing out on being in a movie with Woody Grajeda and Tree Mclaughlin. Patient reports that he has not gotten much sleep this past week; he says he has been on lithium in the past for ricky but stopped it saying it caused excessive urination and hyponatremia. Patient has insight to know that medications help him and was interested in clozapine, despite the need for weekly blood draws, given the relatively lowered risk of dystonia and tardive dyskinesia. Patient denies any SI or HI. PLAN Section 12 B; wants treatment and may be amenable to signing in Q 15 minute checks Continue Zyprexa 20 mg g q.h.s. for now Patient interested in clozapine; will strongly consider however lack of permanent residence makes weekly blood draws a barrier Will seek Collateral 11/21/22 Continue Olanzapine Encourage collateral contact consent 11/22/22 Increase Olanzapine to 30 mg HS Depakote ER 500 mg HS 11/23/22 Continue current regime Diagnostics next week-Valproate level, CBC Continue to work on consents for medical collateral 11/24/2022 Continue current regimen Will get Depakote level tomorrow since he will have reached steady state by than Patient educated on: diagnosis Informed Consent: does not understand Reason for continued inpatient stay Substantial Risk for: inability to function and rapid decompensation Time Spent With Patient Time: Total time managing care of this patient today ____ minutes.
[2022-11-24 16:27] LABS: TSH reflex Free T4 0.65 uIU/mL (0.32-4.0)
[2022-11-24 18:00] VITALS: BP 137/79; PULSE 88; RESP 16; TEMP 36.6; O2SAT 95
[2022-11-24] MEDS: Throat Lozenge, Medicated LOZENGE 1 LOZENGE MUCOUS MEM (19:01)
[2022-11-24] MEDS: OLANZapine 10 MG TABLET 30 MG PO (19:54)
[2022-11-24] MEDS: Divalproex Sodium ER 500 MG TAB.ER.24H PO (19:54)
[2022-11-24 21:49] VITALS: BP 153/89; PULSE 89; TEMP 36.9; O2SAT 95
[2022-11-24 22:55] LABS: Influenza A PCR NEGATIVE (Negative); Influenza B PCR NEGATIVE (Negative); Resp Syncy Virus RNA Qual PCR NEGATIVE (Negative); SARS COV2 PCR INHOUSE NEGATIVE (Negative)
[2022-11-25 07:40] LABS: Ammonia 43 umol/L (13-55)
[2022-11-25 07:45] LABS: Valproate 21.6 mcg/mL (50.0-100.0)
[2022-11-25 07:48] LABS: Alanine Aminotransferase 18 U/L (0-40); Albumin Level 3.5 g/dL (3.5-5.0); Alkaline Phosphatase 69 U/L (39-117); Aspartate Amino Transferase 18 U/L (5-37); Bilirubin Direct 0.2 mg/dL (0.0-0.5); Bilirubin Total 0.5 mg/dL (0.0-1.0)
[2022-11-25 08:15] VITALS: BP 132/93; PULSE 98; RESP 18; TEMP 36.9; O2SAT 95
[2022-11-25] MEDS: Loratadine 10 MG TABLET PO (08:23)
[2022-11-25] MEDS: Throat Lozenge, Medicated LOZENGE 1 LOZENGE MUCOUS MEM (10:36)
[2022-11-25] MEDS: Albuterol Sulfate 90 MCG 8 GM INHALER 2 PUFF INHALE (10:36)
--- NOTE | 2022-11-25 12:06 | HO.PSYCHPN ---
Subjective Subjective Date of Service: 11/25/22 Reason For Visit: disorganized, psychosis Interim History: Met with patient; discussed with team Patient remains manic, incessantly talking to himself as he walks up and down the [place]; expressing paranoid delusional thoughts and expressed some worry about provider being an CHEESE SUPERVISOR, nurse practitioner, wanting to make sure it was not a Neuro-processor since he reports being manipulated by people are Neuro processors Depakote level low; patient agreed to increase depakote to 1000mg Mental Status Exam Mental Status Exam Patient Appearance: Appropriate Patient Orientation: Person and Place Level of Consciousness: Alert Patient Behavior: Appropriate, Guarded, Talkative, Cooperative, Suspicious, Restless, Anxious, Fearful, Resistive to Care, Distractible and Good Eye Contact Mood Description: Constricted Affect Description: Constricted Patient Cognition Impaired: No Ability to Follow Directions: Fair Speech Pattern: Spontaneous Speech Memory Description: Remote Impaired and Episodic Impaired Hallucinations: None Delusions: Paranoid Ideation and Present Perceptual Disturbances: Depersonalization and Derealization Thought Process: Illogical and Distracted Thought Content: positive for Flight of Ideas, positive for Preoccupation, positive for Thought Blocking, positive for Tangential, positive for Suicidal Ideation (denies) and positive for Homicidal Ideation (denies) Depressive Symptoms: Diff. Making Decisions Abnormal Motor Activity Signs and Symptoms: Restlessness Judgement: Poor Diagnostics Vital Signs (24Hr): Vital Signs - 24 hr 11/24/22 18:00 11/24/22 21:49 11/25/22 08:15 Temperature 98 F 98.4 F 98.4 F Pulse Rate 88 89 98 Respiratory Rate 16 18 Blood Pressure 137/79 153/89 H 132/93 H Pulse Oximetry 95 95 95 Oxygen Delivery Method Room Air Room Air Room Air BMI result Body Mass Index 32.2 Labs 11/18/22 13:23 11/18/22 13:23 Labs: Laboratory Results - last 48 hr 11/24/22 11/24/22 11/25/22 15:01 22:05 07:26 Total Bilirubin 0.5 Direct Bilirubin 0.2 AST 18 ALT 18 Alkaline Phosphatase 69 Ammonia Total Protein 6.0 L Albumin 3.5 TSH 0.65 Valproic Acid Influenza Type A (PCR) NEGATIVE Influenza Type B (PCR) NEGATIVE RSV RNA Qual (PCR) NEGATIVE SARS-CoV-2 RNA (RT-PCR) NEGATIVE 11/25/22 11/25/22 07:26 07:26 Total Bilirubin Direct Bilirubin AST ALT Alkaline Phosphatase Ammonia 43 Total Protein Albumin TSH Valproic Acid 21.6 L Influenza Type A (PCR) Influenza Type B (PCR) RSV RNA Qual (PCR) SARS-CoV-2 RNA (RT-PCR) Imaging Radiology Impressions: ITS Impressions Chest X-Ray 11/18/22 14:30 IMPRESSION: Minimal blunting of the left costophrenic angle could represent pleural scarring or very small left pleural effusion. Mild bibasilar atelectasis/scarring. Medications Medications Current Medications Acetaminophen (Acetaminophen 325 Mg Tablet) 650 mg PO Q6H PRN PRN Reason: Headache/Pain Mild Scale (1-3) Last Admin: 11/22/22 19:04 Dose: 650 mg Al Hydroxide/Mg Hydroxide (Magnesium Hydrox/Alum Hydrox 30 Ml Oral.Susp) 30 ml PO Q6H PRN PRN Reason: Heartburn/Nausea Albuterol Sulfate (Albuterol Sulfate 90 Mcg 8 Gm Inhaler) 2 puff INHALE Q4H PRN PRN Reason: Shortness Of Breath Or Wheezing Last Admin: 11/25/22 10:36 Dose: 2 puff Benzocaine (Throat Lozenge, Medicated Lozenge) 1 lozenge MUCOUS MEM Q2H PRN PRN Reason: Sore Throat Last Admin: 11/25/22 10:36 Dose: 1 lozenge Divalproex Sodium (Divalproex Sodium Er 500 Mg Tab.Er.24h) 500 mg PO BEDTIME [facility] Last Admin: 11/24/22 19:54 Dose: 500 mg Hydroxyzine HCl (Hydroxyzine Hcl 25 Mg Tablet) 25 mg PO Q6H PRN PRN Reason: Anxiety Ibuprofen (Ibuprofen 400 Mg Tablet) 400 mg PO Q8H PRN PRN Reason: Pain, Mild (Pain Scale 1-3) Last Admin: 11/20/22 09:16 Dose: 400 mg Loratadine (Loratadine 10 Mg Tablet) 10 mg PO DAILY [facility] Last Admin: 11/25/22 08:23 Dose: 10 mg Magnesium Hydroxide (Milk Of Magnesia 30 Ml Oral.Susp) 30 ml PO DAILY PRN PRN Reason: Constipation Nicotine Polacrilex (Nicotine Polacrilex 2 Mg Gum) 4 mg BUCCAL Q2H PRN PRN Reason: Nicotine Cravings Olanzapine (Olanzapine 5 Mg Tablet) 5 mg PO TID PRN PRN Reason: agitation Last Admin: 11/22/22 08:57 Dose: 5 mg Olanzapine (Olanzapine 10 Mg Tablet) 30 mg PO BEDTIME LIANA Last Admin: 11/24/22 19:54 Dose: 30 mg Ondansetron HCl (Ondansetron Odt 4 Mg Tab.Rapdis) 4 mg TRANSLINGU Q6H PRN PRN Reason: nasuea/vomit Trazodone HCl (Trazodone Hcl 50 Mg Tablet) 50 mg PO BEDTIME MRX1 PRN PRN Reason: Insomnia Last Admin: 11/23/22 18:58 Dose: 50 mg Allergies Allergies Allergy/AdvReac Type Severity Reaction Status Date / Time propofol Allergy Unknown Verified 11/18/22 12:22 warfarin Allergy Unknown Verified 11/18/22 12:22 Assessment & Plan Assessment & Plan (1) Schizoaffective disorder, bipolar type: Status: Acute Code(s): F25.0 - Schizoaffective disorder, bipolar type Plan Patient is a 56-year-old male on Section 12B with history of psychotic illness, likely schizoaffective disorder who presents after being picked up by police for disorganized behavior, found in a school parking lot unsure of where he was. Patient is calm, cooperative and polite though prone to being guarded and suspicious. He is somewhat of a limited historian due to some disorganized thought process. Patient reports that he used to be on risperidone up to 9 mg; it is not sure how long ago he was on this medication but he seems to say he tapered himself off of at some point concerned about the possible skilled nursing side effects. Recently he was admitted to psychiatric hospital at [facility] in [place] for 2 weeks where he was started on Zyprexa which he says he has been taking regularly however he is concerned about this medication and has some paranoid delusions about the reasons it was started and the 1st place. Throughout discussion patient will intermittently make references to being followed, being persecuted by people or organizations, being poisoned, etc.; during interview several pigeons flew to the window and patient stopped to say that the bird was a Drone. He denies hearing actual voices but endorses getting electric sensations, radio waves, vibrations. He also made some references to being concerned about being on the unit too long and missing out on being in a movie with Woody Grajeda and Tree Mclaughlin. Patient reports that he has not gotten much sleep this past week; he says he has been on lithium in the past for ricky but stopped it saying it caused excessive urination and hyponatremia. Patient has insight to know that medications help him and was interested in clozapine, despite the need for weekly blood draws, given the relatively lowered risk of dystonia and tardive dyskinesia. Patient denies any SI or HI. PLAN Section 12 B; wants treatment and may be amenable to signing in Q 15 minute checks Increase Depakote to 1000 mg q.h.s. since typical level subtherapeutic and patient remains manic Continue Zyprexa 20 mg g q.h.s. for now Patient interested in clozapine; will strongly consider however lack of permanent residence makes weekly blood draws a barrier Will seek Collateral 11/21/22 Continue Olanzapine Encourage collateral contact consent 11/22/22 Increase Olanzapine to 30 mg HS Depakote ER 500 mg HS 11/23/22 Continue current regime Diagnostics next week-Valproate level, CBC Continue to work on consents for medical collateral 11/24/2022 Continue current regimen Will get Depakote level tomorrow since he will have reached steady state by than / Patient remains manic and with paranoid delusions Depakote level subtherapeutic and patient agrees to increasing Depakote to 1000 mg Patient educated on: diagnosis and medication risk/benefits Informed Consent: understands Reason for continued inpatient stay Substantial Risk for: inability to function Time Spent With Patient Time: Total time managing care of this patient today ____ minutes.
[2022-11-25 17:05] VITALS: BP 146/83; PULSE 88; RESP 20; TEMP 36.7; O2SAT 96
[2022-11-25] MEDS: Divalproex Sodium ER 500 MG TAB.ER.24H 1000 MG PO (21:20)
[2022-11-25] MEDS: OLANZapine 10 MG TABLET 30 MG PO (21:20)
[2022-11-26 08:05] VITALS: BP 130/90; PULSE 96; RESP 18; TEMP 36.4; O2SAT 96
[2022-11-26] MEDS: Loratadine 10 MG TABLET PO (08:54)
[2022-11-26] MEDS: Throat Lozenge, Medicated LOZENGE 1 LOZENGE MUCOUS MEM (13:05)
--- NOTE | 2022-11-26 16:06 | HO.PSYCHPN ---
Subjective Subjective Date of Service: 11/26/22 Reason For Visit: disorganized, psychosis Subjective Notes: Section 7 Healthcare Proxy: No Guardianship: No Medical Problems Affecting Mental Status: No Interim History: Two meetings with pt today. This a.m. pt chose to discuss his concerns about President Alli, the current legal charges he faces, and the effect upon his re-election campaign. This afternoon, pt chose to discuss his concerns about his physical health, initiating the discussion, I don't know how I got like this, but I cannot stop talking-I don't know if it is ricky, the trouble Alli is in or because I spend too much time alone. But, please don't break my heart. (smiles as this is his reference to a song sung with tw name). Pt reports his sleep is good . He is worried about his health. He reports he believes he has cancer, leukemia specifically. He reviewed concerns about having nail fungal infection, enlarged ventricles in his heart, and issues with infectious disease, allergy, dermatology. He would like a medical team to be chosen for him, a good recovery room nurse in a trusted town . He reviewed the hospitals he has been treated in and reports he has records in the following facilites. [facility] Dr. Sharad Ferrer [facility], Dr. Abhishek Yang [facility] [place] Reports several issues with each facility-believes he was entered in studies without consent, records were faked, meds were given without FDA approval Pt reports we can get info, but he is not comfortable with signature of DINESH for records. He will allow independent evals at [facility] if we ask, He will consider cardiac eval at [facility] as well. Medication Compliance: Yes Side effects from medications: No Attending Groups: Intermittent Review of Systems Acute medical concerns: No Medical Review of Systems: unchanged Mental Status Exam Mental Status Exam Patient Appearance: Appropriate Patient Orientation: Person, Place and Time Level of Consciousness: Alert Patient Behavior: Appropriate, Talkative, Fatigued, Distractible and Good Eye Contact Mood Description: Labile Affect Description: Labile Patient Cognition Impaired: No Ability to Follow Directions: Fair Speech Pattern: Spontaneous Speech, Rambling, Rapid, Excessive and Pressured Memory Description: Remote Impaired and Episodic Impaired Hallucinations: None Delusions: Present Perceptual Disturbances: Derealization Thought Process: Racing, Illogical, Distracted and Rumination Thought Content: positive for Flight of Ideas, positive for Racing, positive for Tangential, positive for Suicidal Ideation (denies) and positive for Homicidal Ideation (denies) Depressive Symptoms: Diff. Making Decisions, Hopelessness and Difficulty Concentrating Judgement: Poor Diagnostics Vital Signs (24Hr): Vital Signs - 24 hr 11/25/22 17:05 11/26/22 08:05 Temperature 98.0 F 97.5 F Pulse Rate 88 96 Respiratory Rate 20 18 Blood Pressure 146/83 H 130/90 H Pulse Oximetry 96 96 Oxygen Delivery Method Room Air Room Air BMI result Body Mass Index 32.2 Labs 11/18/22 13:23 11/18/22 13:23 Labs: Laboratory Results - last 48 hr 11/24/22 11/24/22 11/25/22 15:01 22:05 07:26 Total Bilirubin 0.5 Direct Bilirubin 0.2 AST 18 ALT 18 Alkaline Phosphatase 69 Ammonia Total Protein 6.0 L Albumin 3.5 TSH 0.65 Valproic Acid Influenza Type A (PCR) NEGATIVE Influenza Type B (PCR) NEGATIVE RSV RNA Qual (PCR) NEGATIVE SARS-CoV-2 RNA (RT-PCR) NEGATIVE 11/25/22 11/25/22 07:26 07:26 Total Bilirubin Direct Bilirubin AST ALT Alkaline Phosphatase Ammonia 43 Total Protein Albumin TSH Valproic Acid 21.6 L Influenza Type A (PCR) Influenza Type B (PCR) RSV RNA Qual (PCR) SARS-CoV-2 RNA (RT-PCR) Imaging Radiology Impressions: ITS Impressions Chest X-Ray 11/18/22 14:30 IMPRESSION: Minimal blunting of the left costophrenic angle could represent pleural scarring or very small left pleural effusion. Mild bibasilar atelectasis/scarring. Medications Medications Current Medications Acetaminophen (Acetaminophen 325 Mg Tablet) 650 mg PO Q6H PRN PRN Reason: Headache/Pain Mild Scale (1-3) Last Admin: 11/22/22 19:04 Dose: 650 mg Al Hydroxide/Mg Hydroxide (Magnesium Hydrox/Alum Hydrox 30 Ml Oral.Susp) 30 ml PO Q6H PRN PRN Reason: Heartburn/Nausea Albuterol Sulfate (Albuterol Sulfate 90 Mcg 8 Gm Inhaler) 2 puff INHALE Q4H PRN PRN Reason: Shortness Of Breath Or Wheezing Last Admin: 11/25/22 10:36 Dose: 2 puff Benzocaine (Throat Lozenge, Medicated Lozenge) 1 lozenge MUCOUS MEM Q2H PRN PRN Reason: Sore Throat Last Admin: 11/26/22 13:05 Dose: 1 lozenge Divalproex Sodium (Divalproex Sodium Er 500 Mg Tab.Er.24h) 1,000 mg PO BEDTIME [facility] Last Admin: 11/25/22 21:20 Dose: 1,000 mg Hydroxyzine HCl (Hydroxyzine Hcl 25 Mg Tablet) 25 mg PO Q6H PRN PRN Reason: Anxiety Ibuprofen (Ibuprofen 400 Mg Tablet) 400 mg PO Q8H PRN PRN Reason: Pain, Mild (Pain Scale 1-3) Last Admin: 11/20/22 09:16 Dose: 400 mg Loratadine (Loratadine 10 Mg Tablet) 10 mg PO DAILY [facility] Last Admin: 11/26/22 08:54 Dose: 10 mg Magnesium Hydroxide (Milk Of Magnesia 30 Ml Oral.Susp) 30 ml PO DAILY PRN PRN Reason: Constipation Nicotine Polacrilex (Nicotine Polacrilex 2 Mg Gum) 4 mg BUCCAL Q2H PRN PRN Reason: Nicotine Cravings Olanzapine (Olanzapine 5 Mg Tablet) 5 mg PO TID PRN PRN Reason: agitation Last Admin: 11/22/22 08:57 Dose: 5 mg Olanzapine (Olanzapine 10 Mg Tablet) 30 mg PO BEDTIME [facility] Last Admin: 11/25/22 21:20 Dose: 30 mg Ondansetron HCl (Ondansetron Odt 4 Mg Tab.Rapdis) 4 mg TRANSLINGU Q6H PRN PRN Reason: nasuea/vomit Trazodone HCl (Trazodone Hcl 50 Mg Tablet) 50 mg PO BEDTIME MRX1 PRN PRN Reason: Insomnia Last Admin: 11/23/22 18:58 Dose: 50 mg Allergies Allergies Allergy/AdvReac Type Severity Reaction Status Date / Time propofol Allergy Unknown Verified 11/18/22 12:22 warfarin Allergy Unknown Verified 11/18/22 12:22 Assessment & Plan Assessment & Plan (1) Schizoaffective disorder, bipolar type: Status: Acute Code(s): F25.0 - Schizoaffective disorder, bipolar type Plan Patient is a 56-year-old male on Section 12B with history of psychotic illness, likely schizoaffective disorder who presents after being picked up by police for disorganized behavior, found in a school parking lot unsure of where he was. Patient is calm, cooperative and polite though prone to being guarded and suspicious. He is somewhat of a limited historian due to some disorganized thought process. Patient reports that he used to be on risperidone up to 9 mg; it is not sure how long ago he was on this medication but he seems to say he tapered himself off of at some point concerned about the possible termite exterminator side effects. Recently he was admitted to psychiatric hospital at [facility] in [place] for 2 weeks where he was started on Zyprexa which he says he has been taking regularly however he is concerned about this medication and has some paranoid delusions about the reasons it was started and the 1st place. Throughout discussion patient will intermittently make references to being followed, being persecuted by people or organizations, being poisoned, etc.; during interview several pigeons flew to the window and patient stopped to say that the bird was a Drone. He denies hearing actual voices but endorses getting electric sensations, radio waves, vibrations. He also made some references to being concerned about being on the unit too long and missing out on being in a movie with Woody Grajeda and Tree Mclaughlin. Patient reports that he has not gotten much sleep this past week; he says he has been on lithium in the past for ricky but stopped it saying it caused excessive urination and hyponatremia. Patient has insight to know that medications help him and was interested in clozapine, despite the need for weekly blood draws, given the relatively lowered risk of dystonia and tardive dyskinesia. Patient denies any SI or HI. PLAN Section 12 B; wants treatment and may be amenable to signing in Q 15 minute checks Increase Depakote to 1000 mg q.h.s. since typical level subtherapeutic and patient remains manic Continue Zyprexa 20 mg g q.h.s. for now Patient interested in clozapine; will strongly consider however lack of permanent residence makes weekly blood draws a barrier Will seek Collateral 11/21/22 Continue Olanzapine Encourage collateral contact consent 11/22/22 Increase Olanzapine to 30 mg HS Depakote ER 500 mg HS 11/23/22 Continue current regime Diagnostics next week-Valproate level, CBC Continue to work on consents for medical collateral 11/24/2022 Continue current regimen Will get Depakote level tomorrow since he will have reached steady state by than Patient remains manic and with paranoid delusions Depakote level subtherapeutic and patient agrees to increasing Depakote to 1000 mg Patient educated on: medication risk/benefits, therapeutic strategies and medical condition Informed Consent: further education needed Reason for continued inpatient stay Substantial Risk for: inability to function and rapid decompensation Time Spent With Patient Time: Total time managing care of this patient today ____ minutes.
[2022-11-26 18:15] VITALS: BP 148/68; PULSE 87
[2022-11-26] MEDS: Divalproex Sodium ER 500 MG TAB.ER.24H 1000 MG PO (20:34)
[2022-11-26] MEDS: OLANZapine 10 MG TABLET 30 MG PO (20:35)
[2022-11-27 06:00] VITALS: BP 139/76; PULSE 88; RESP 16; TEMP 36.6; O2SAT 98
[2022-11-27] MEDS: Loratadine 10 MG TABLET PO (09:03)
--- NOTE | 2022-11-27 09:15 | P.PNPSI_ITS ---
Subjective Subjective Date of Service: 11/27/22 Reason For Visit: disorganized, psychosis Subjective Notes: Section 7 Healthcare Proxy: No Guardianship: No Medical Problems Affecting Mental Status: No Interim History: Reviewed with pt contacts made on his behalf to medical facilities he identified on 11/26 including [facility] and Dr. Boyle's office with request for testing information. Pt continues with some pressure of speech, stating I still talk too much , but is treatment compliant and working with the team. He continues with racing thoughts, some paranoia and delusional content, is tangential with loosening of associations. Agrees to ongoing medica tion interventions. Pt met with his banking attorney today. Court continued until 12/13/22. Medication Compliance: Yes Side effects from medications: No Attending Groups: Intermittent Review of Systems Acute medical concerns: No Medical Review of Systems: unchanged Mental Status Exam Mental Status Exam Patient Appearance: Appropriate Patient Orientation: Person, Place and Time Level of Consciousness: Alert Patient Behavior: Appropriate, Talkative, Fatigued, Distractible and Good Eye Contact Mood Description: Labile Affect Description: Labile Patient Cognition Impaired: No Ability to Follow Directions: Fair Speech Pattern: Spontaneous Speech, Rambling, Rapid, Excessive and Pressured Memory Description: Remote Impaired and Episodic Impaired Hallucinations: None Delusions: Present Perceptual Disturbances: Derealization Thought Process: Racing, Illogical, Distracted and Rumination Thought Content: positive for Flight of Ideas, positive for Racing, positive for Tangential, positive for Suicidal Ideation (denies) and positive for Homicidal Ideation (denies) Depressive Symptoms: Diff. Making Decisions, Hopelessness and Difficulty Concentrating Judgement: Poor Diagnostics Vital Signs (24Hr): Vital Signs - 24 hr 11/26/22 18:15 Pulse Rate 87 Blood Pressure 148/68 H BMI result Body Mass Index 32.2 Labs 11/18/22 13:23 11/18/22 13:23 Imaging Radiology Impressions: ITS Impressions Chest X-Ray 11/18/22 14:30 IMPRESSION: Minimal blunting of the left costophrenic angle could represent pleural scarring or very small left pleural effusion. Mild bibasilar atelectasis/scarring. Medications Medications Current Medications Acetaminophen (Acetaminophen 325 Mg Tablet) 650 mg PO Q6H PRN PRN Reason: Headache/Pain Mild Scale (1-3) Last Admin: 11/22/22 19:04 Dose: 650 mg Al Hydroxide/Mg Hydroxide (Magnesium Hydrox/Alum Hydrox 30 Ml Oral.Susp) 30 ml PO Q6H PRN PRN Reason: Heartburn/Nausea Albuterol Sulfate (Albuterol Sulfate 90 Mcg 8 Gm Inhaler) 2 puff INHALE Q4H PRN PRN Reason: Shortness Of Breath Or Wheezing Last Admin: 11/25/22 10:36 Dose: 2 puff Benzocaine (Throat Lozenge, Medicated Lozenge) 1 lozenge MUCOUS MEM Q2H PRN PRN Reason: Sore Throat Last Admin: 11/26/22 13:05 Dose: 1 lozenge Divalproex Sodium (Divalproex Sodium Er 500 Mg Tab.Er.24h) 1,000 mg PO BEDTIME [facility] Last Admin: 11/26/22 20:34 Dose: 1,000 mg Hydroxyzine HCl (Hydroxyzine Hcl 25 Mg Tablet) 25 mg PO Q6H PRN PRN Reason: Anxiety Ibuprofen (Ibuprofen 400 Mg Tablet) 400 mg PO Q8H PRN PRN Reason: Pain, Mild (Pain Scale 1-3) Last Admin: 11/20/22 09:16 Dose: 400 mg Loratadine (Loratadine 10 Mg Tablet) 10 mg PO DAILY [facility] Last Admin: 11/27/22 09:03 Dose: 10 mg Magnesium Hydroxide (Milk Of Magnesia 30 Ml Oral.Susp) 30 ml PO DAILY PRN PRN Reason: Constipation Nicotine Polacrilex (Nicotine Polacrilex 2 Mg Gum) 4 mg BUCCAL Q2H PRN PRN Reason: Nicotine Cravings Olanzapine (Olanzapine 5 Mg Tablet) 5 mg PO TID PRN PRN Reason: agitation Last Admin: 11/22/22 08:57 Dose: 5 mg Olanzapine (Olanzapine 10 Mg Tablet) 30 mg PO BEDTIME [facility] Last Admin: 11/26/22 20:35 Dose: 30 mg Ondansetron HCl (Ondansetron Odt 4 Mg Tab.Rapdis) 4 mg TRANSLINGU Q6H PRN PRN Reason: nasuea/vomit Trazodone HCl (Trazodone Hcl 50 Mg Tablet) 50 mg PO BEDTIME MRX1 PRN PRN Reason: Insomnia Last Admin: 11/23/22 18:58 Dose: 50 mg Allergies Allergies Allergy/AdvReac Type Severity Reaction Status Date / Time propofol Allergy Unknown Verified 11/18/22 12:22 warfarin Allergy Unknown Verified 11/18/22 12:22 Assessment & Plan Assessment & Plan (1) Schizoaffective disorder, bipolar type: Status: Acute Code(s): F25.0 - Schizoaffective disorder, bipolar type Plan Patient is a 56-year-old male on Section 12B with history of psychotic illness, likely schizoaffective disorder who presents after being picked up by police for disorganized behavior, found in a school parking lot unsure of where he was. Patient is calm, cooperative and polite though prone to being guarded and suspicious. He is somewhat of a limited historian due to some disorganized thought process. Patient reports that he used to be on risperidone up to 9 mg; it is not sure how long ago he was on this medication but he seems to say he tapered himself off of at some point concerned about the possible custodial side effects. Recently he was admitted to psychiatric hospital at [facility] in [place] for 2 weeks where he was started on Zyprexa which he says he has been taking regularly however he is concerned about this medication and has some paranoid delusions about the reasons it was started and the 1st place. Throughout discussion patient will intermittently make references to being followed, being persecuted by people or organizations, being poisoned, etc.; during interview several pigeons flew to the window and patient stopped to say that the bird was a Drone. He denies hearing actual voices but endorses getting electric sensations, radio waves, vibrations. He also made some references to being concerned about being on the unit too long and missing out on being in a movie with Woody Grajeda and Tree Mclaughlin. Patient reports that he has not gotten much sleep this past week; he says he has been on lithium in the past for ricky but stopped it saying it caused excessive urination and hyponatremia. Patient has insight to know that medications help him and was interested in clozapine, despite the need for weekly blood draws, given the relatively lowered risk of dystonia and tardive dyskinesia. Patient denies any SI or HI. PLAN Section 12 B; wants treatment and may be amenable to signing in Q 15 minute checks Increase Depakote to 1000 mg q.h.s. since typical level subtherapeutic and patient remains manic Continue Zyprexa 20 mg g q.h.s. for now Patient interested in clozapine; will strongly consider however lack of permanent residence makes weekly blood draws a barrier Will seek Collateral 11/21/22 Continue Olanzapine Encourage collateral contact consent 11/22/22 Increase Olanzapine to 30 mg HS Depakote ER 500 mg HS 11/23/22 Continue current regime Diagnostics next week-Valproate level, CBC Continue to work on consents for medical collateral 11/24/2022 Continue current regimen Will get Depakote level tomorrow since he will have reached steady state by Patient remains manic and with paranoid delusions Depakote level subtherapeutic and patient agrees to increasing Depakote to 1000 mg 11/27/22 Continue current regime Hospitalist consult for mgt of thoracic aortic aneurysm Atenolol re-started at 25 mg daily-pt was taking this when in pt in [place] 10/20-11/10. Patient educated on: medication risk/benefits and therapeutic strategies Informed Consent: further education needed Reason for continued inpatient stay Substantial Risk for: rapid decompensation Time Spent With Patient Time: Total time managing care of this patient today ____ minutes.
[2022-11-27 09:55] LABS: Folate 12.7 ng/mL (> or = 4.0); Vitamin B12 822 pg/mL (200-900)
[2022-11-27 16:37] VITALS: BP 151/88; PULSE 86
[2022-11-27] MEDS: Divalproex Sodium ER 500 MG TAB.ER.24H 1000 MG PO (22:00)
[2022-11-27] MEDS: OLANZapine 10 MG TABLET 30 MG PO (22:00)
[2022-11-28] MEDS: Acetaminophen 325 MG TABLET 650 MG PO (05:21)
[2022-11-28 08:25] VITALS: BP 132/80; PULSE 86; RESP 16; TEMP 36.9; O2SAT 98
[2022-11-28] MEDS: atenoloL 25 MG TABLET PO (08:29)
[2022-11-28] MEDS: Loratadine 10 MG TABLET PO (08:29)
--- NOTE | 2022-11-28 10:21 | HO.PSYCHPN ---
Subjective Subjective Date of Service: 11/28/22 Reason For Visit: disorganized, psychosis Subjective Notes: Section 7 Healthcare Proxy: No Guardianship: No Medical Problems Affecting Mental Status: No Interim History: Pt is slowing down. He remains talkative, tangential at times with delusions, but is settling. We discussed medical plan for thoracic aortic aneurysm-monitoring and blood pressure mgt. Pt discussed thoughts about where to live, repairing relationships with family (son) and services he will need when discharged. Medication Compliance: Yes Side effects from medications: No Attending Groups: No Review of Systems Acute medical concerns: No Medical Review of Systems: unchanged Mental Status Exam Mental Status Exam Patient Appearance: Appropriate Patient Orientation: Person, Place and Time Level of Consciousness: Alert Patient Behavior: Appropriate, Talkative, Fatigued, Distractible and Good Eye Contact Mood Description: Labile Affect Description: Labile Patient Cognition Impaired: No Ability to Follow Directions: Fair Speech Pattern: Spontaneous Speech, Rambling, Rapid, Excessive and Pressured Memory Description: Remote Impaired and Episodic Impaired Hallucinations: None Delusions: Present Perceptual Disturbances: Derealization Thought Process: Racing, Illogical, Distracted and Rumination Thought Content: positive for Flight of Ideas, positive for Racing, positive for Tangential, positive for Suicidal Ideation (denies) and positive for Homicidal Ideation (denies) Depressive Symptoms: Diff. Making Decisions, Hopelessness and Difficulty Concentrating Judgement: Poor Diagnostics Vital Signs (24Hr): Vital Signs - 24 hr 11/27/22 16:37 11/28/22 08:25 Temperature 98.4 F Pulse Rate 86 86 Respiratory Rate 16 Blood Pressure 151/88 H 132/80 Pulse Oximetry 98 Oxygen Delivery Method Room Air BMI result Body Mass Index 32.2 Labs 11/18/22 13:23 11/18/22 13:23 Labs: Laboratory Results - last 48 hr 11/27/22 08:30 Vitamin B12 822 Folate 12.7 Imaging Radiology Impressions: ITS Impressions Chest X-Ray 11/18/22 14:30 IMPRESSION: Minimal blunting of the left costophrenic angle could represent pleural scarring or very small left pleural effusion. Mild bibasilar atelectasis/scarring. Medications Medications Current Medications Acetaminophen (Acetaminophen 325 Mg Tablet) 650 mg PO Q6H PRN PRN Reason: Headache/Pain Mild Scale (1-3) Last Admin: 11/28/22 05:21 Dose: 650 mg Al Hydroxide/Mg Hydroxide (Magnesium Hydrox/Alum Hydrox 30 Ml Oral.Susp) 30 ml PO Q6H PRN PRN Reason: Heartburn/Nausea Albuterol Sulfate (Albuterol Sulfate 90 Mcg 8 Gm Inhaler) 2 puff INHALE Q4H PRN PRN Reason: Shortness Of Breath Or Wheezing Last Admin: 11/25/22 10:36 Dose: 2 puff Atenolol (Atenolol 25 Mg Tablet) 25 mg PO DAILY [facility]; Protocol Last Admin: 11/28/22 08:29 Dose: 25 mg Benzocaine (Throat Lozenge, Medicated Lozenge) 1 lozenge MUCOUS MEM Q2H PRN PRN Reason: Sore Throat Last Admin: 11/26/22 13:05 Dose: 1 lozenge Divalproex Sodium (Divalproex Sodium Er 500 Mg Tab.Er.24h) 1,000 mg PO BEDTIME [facility] Last Admin: 11/27/22 22:00 Dose: 1,000 mg Hydroxyzine HCl (Hydroxyzine Hcl 25 Mg Tablet) 25 mg PO Q6H PRN PRN Reason: Anxiety Ibuprofen (Ibuprofen 400 Mg Tablet) 400 mg PO Q8H PRN PRN Reason: Pain, Mild (Pain Scale 1-3) Last Admin: 11/20/22 09:16 Dose: 400 mg Loratadine (Loratadine 10 Mg Tablet) 10 mg PO DAILY [facility] Last Admin: 11/28/22 08:29 Dose: 10 mg Magnesium Hydroxide (Milk Of Magnesia 30 Ml Oral.Susp) 30 ml PO DAILY PRN PRN Reason: Constipation Nicotine Polacrilex (Nicotine Polacrilex 2 Mg Gum) 4 mg BUCCAL Q2H PRN PRN Reason: Nicotine Cravings Olanzapine (Olanzapine 5 Mg Tablet) 5 mg PO TID PRN PRN Reason: agitation Last Admin: 11/22/22 08:57 Dose: 5 mg Olanzapine (Olanzapine 10 Mg Tablet) 30 mg PO BEDTIME [facility] Last Admin: 11/27/22 22:00 Dose: 30 mg Ondansetron HCl (Ondansetron Odt 4 Mg Tab.Rapdis) 4 mg TRANSLINGU Q6H PRN PRN Reason: nasuea/vomit Trazodone HCl (Trazodone Hcl 50 Mg Tablet) 50 mg PO BEDTIME MRX1 PRN PRN Reason: Insomnia Last Admin: 11/23/22 18:58 Dose: 50 mg Allergies Allergies Allergy/AdvReac Type Severity Reaction Status Date / Time propofol Allergy Unknown Verified 11/18/22 12:22 warfarin Allergy Unknown Verified 11/18/22 12:22 Assessment & Plan Assessment & Plan (1) Schizoaffective disorder, bipolar type: Status: Acute Code(s): F25.0 - Schizoaffective disorder, bipolar type Plan Patient is a 56-year-old male on Section 12B with history of psychotic illness, likely schizoaffective disorder who presents after being picked up by police for disorganized behavior, found in a school parking lot unsure of where he was. Patient is calm, cooperative and polite though prone to being guarded and suspicious. He is somewhat of a limited historian due to some disorganized thought process. Patient reports that he used to be on risperidone up to 9 mg; it is not sure how long ago he was on this medication but he seems to say he tapered himself off of at some point concerned about the possible senior living side effects. Recently he was admitted to psychiatric hospital at [facility] in [place] for 2 weeks where he was started on Zyprexa which he says he has been taking regularly however he is concerned about this medication and has some paranoid delusions about the reasons it was started and the 1st place. Throughout discussion patient will intermittently make references to being followed, being persecuted by people or organizations, being poisoned, etc.; during interview several pigeons flew to the window and patient stopped to say that the bird was a Drone. He denies hearing actual voices but endorses getting electric sensations, radio waves, vibrations. He also made some references to being concerned about being on the unit too long and missing out on being in a movie with Woody Grajeda and Tree Mclaughlin. Patient reports that he has not gotten much sleep this past week; he says he has been on lithium in the past for ricky but stopped it saying it caused excessive urination and hyponatremia. Patient has insight to know that medications help him and was interested in clozapine, despite the need for weekly blood draws, given the relatively lowered risk of dystonia and tardive dyskinesia. Patient denies any SI or HI. PLAN Section 12 B; wants treatment and may be amenable to signing in Q 15 minute checks Increase Depakote to 1000 mg q.h.s. since typical level subtherapeutic and patient remains manic Continue Zyprexa 20 mg g q.h.s. for now Patient interested in clozapine; will strongly consider however lack of permanent residence makes weekly blood draws a barrier Will seek Collateral 11/21/22 Continue Olanzapine Encourage collateral contact consent 11/22/22 Increase Olanzapine to 30 mg HS Depakote ER 500 mg HS 11/23/22 Continue current regime Diagnostics next week-Valproate level, CBC Continue to work on consents for medical collateral 11/24/2022 Continue current regimen Will get Depakote level tomorrow since he will have reached steady state by than Patient remains manic and with paranoid delusions Depakote level subtherapeutic and patient agrees to increasing Depakote to 1000 mg 11/27/22 Continue current regime Hospitalist consult for mgt of thoracic aortic aneurysm Atenolol re-started at 25 mg daily-pt was taking this when in pt in [place] 10/20-11/10. 11/28/22 Continue current plan of care and regime. Informed Consent: further education needed Reason for continued inpatient stay Substantial Risk for: med/psych decompensation Time Spent With Patient Time: Total time managing care of this patient today ____ minutes.
--- NOTE | 2022-11-28 14:53 | PM.EVENT ---
Event Note Date of Service: 11/28/22 Event Note: Patient with history of thoracic aneurysm, medical consult for medical management. Echocardiogram on 09/13/2022 at [facility] demonstrated moderately dilated ascending aorta of 4.4 cm and moderately dilated aortic root at 4.4 cm. Could not rule out aortic stenosis. Pt should resume his atenolol, as beta-blockers are first-line therapy for asymptomatic thoracic aneurysms. Monitor BP closely, and patient should have repeat echocardiogram in 6 months if this is a new finding, or in 1 year if this is an old finding and his aneurysm has been stable at 4.4 cm. Thank you for allowing us to participate in the care of this patient. Signing off at this time. Please let us know if there are any acute complaints or questions. Time Spent With Patient Time: Total time managing care of this patient today ____ minutes.
[2022-11-28 18:00] VITALS: BP 136/65; PULSE 72; TEMP 36.7
[2022-11-28] MEDS: Divalproex Sodium ER 500 MG TAB.ER.24H 1000 MG PO (22:13)
[2022-11-28] MEDS: OLANZapine 10 MG TABLET 30 MG PO (22:14)
[2022-11-29 07:00] VITALS: BMI 32.3
[2022-11-29 08:15] VITALS: BP 136/83; PULSE 89; RESP 18; TEMP 36.3; O2SAT 97
[2022-11-29] MEDS: atenoloL 25 MG TABLET PO (08:22)
[2022-11-29] MEDS: Loratadine 10 MG TABLET PO (08:22)
--- NOTE | 2022-11-29 12:03 | P.PNPSI_ITS ---
Subjective Subjective Date of Service: 11/29/22 Reason For Visit: disorganized, psychosis Subjective Notes: Section 7 Healthcare Proxy: No Guardianship: No Medical Problems Affecting Mental Status: No Interim History: Reports he is feeling improved. Talking is slowing down. Discussed not living in his car when discharged and what options may be available. Reports feeling tired at night, and sleeping is improved. Denies feeling overmedicated at this time. Concerned that he may have lost his guitar. Medication Compliance: Yes Side effects from medications: No Attending Groups: Yes Review of Systems Acute medical concerns: No Medical Review of Systems: unchanged Mental Status Exam Mental Status Exam Patient Appearance: Appropriate Patient Orientation: Person, Place and Time Level of Consciousness: Alert Patient Behavior: Appropriate, Talkative, Fatigued, Distractible and Good Eye Contact Mood Description: Labile Affect Description: Labile Patient Cognition Impaired: No Ability to Follow Directions: Fair Speech Pattern: Spontaneous Speech, Rambling, Rapid, Excessive and Pressured Memory Description: Remote Impaired and Episodic Impaired Hallucinations: None Delusions: Present Perceptual Disturbances: Derealization Thought Process: Racing, Illogical, Distracted and Rumination Thought Content: positive for Flight of Ideas, positive for Racing, positive for Tangential, positive for Suicidal Ideation (denies) and positive for Homicidal Ideation (denies) Depressive Symptoms: Diff. Making Decisions, Hopelessness and Difficulty Concentrating Judgement: Poor Diagnostics Vital Signs (24Hr): Vital Signs - 24 hr 11/28/22 18:00 11/29/22 08:15 Temperature 98.1 F 97.4 F Pulse Rate 72 89 Respiratory Rate 18 Blood Pressure 136/65 136/83 Pulse Oximetry 97 Oxygen Delivery Method Room Air BMI result Body Mass Index 32.3 Labs 11/18/22 13:23 11/18/22 13:23 Imaging Radiology Impressions: ITS Impressions Chest X-Ray 11/18/22 14:30 IMPRESSION: Minimal blunting of the left costophrenic angle could represent pleural scarring or very small left pleural effusion. Mild bibasilar atelectasis/scarring. Medications Medications Current Medications Acetaminophen (Acetaminophen 325 Mg Tablet) 650 mg PO Q6H PRN PRN Reason: Headache/Pain Mild Scale (1-3) Last Admin: 11/28/22 05:21 Dose: 650 mg Al Hydroxide/Mg Hydroxide (Magnesium Hydrox/Alum Hydrox 30 Ml Oral.Susp) 30 ml PO Q6H PRN PRN Reason: Heartburn/Nausea Albuterol Sulfate (Albuterol Sulfate 90 Mcg 8 Gm Inhaler) 2 puff INHALE Q4H PRN PRN Reason: Shortness Of Breath Or Wheezing Last Admin: 11/25/22 10:36 Dose: 2 puff Atenolol (Atenolol 25 Mg Tablet) 25 mg PO DAILY [facility]; Protocol Last Admin: 11/29/22 08:22 Dose: 25 mg Benzocaine (Throat Lozenge, Medicated Lozenge) 1 lozenge MUCOUS MEM Q2H PRN PRN Reason: Sore Throat Last Admin: 11/26/22 13:05 Dose: 1 lozenge Divalproex Sodium (Divalproex Sodium Er 500 Mg Tab.Er.24h) 1,000 mg PO BEDTIME [facility] Last Admin: 11/28/22 22:13 Dose: 1,000 mg Hydroxyzine HCl (Hydroxyzine Hcl 25 Mg Tablet) 25 mg PO Q6H PRN PRN Reason: Anxiety Ibuprofen (Ibuprofen 400 Mg Tablet) 400 mg PO Q8H PRN PRN Reason: Pain, Mild (Pain Scale 1-3) Last Admin: 11/20/22 09:16 Dose: 400 mg Loratadine (Loratadine 10 Mg Tablet) 10 mg PO DAILY [facility] Last Admin: 11/29/22 08:22 Dose: 10 mg Magnesium Hydroxide (Milk Of Magnesia 30 Ml Oral.Susp) 30 ml PO DAILY PRN PRN Reason: Constipation Nicotine Polacrilex (Nicotine Polacrilex 2 Mg Gum) 4 mg BUCCAL Q2H PRN PRN Reason: Nicotine Cravings Olanzapine (Olanzapine 5 Mg Tablet) 5 mg PO TID PRN PRN Reason: agitation Last Admin: 11/22/22 08:57 Dose: 5 mg Olanzapine (Olanzapine 10 Mg Tablet) 30 mg PO BEDTIME [facility] Last Admin: 11/28/22 22:14 Dose: 30 mg Ondansetron HCl (Ondansetron Odt 4 Mg Tab.Rapdis) 4 mg TRANSLINGU Q6H PRN PRN Reason: nasuea/vomit Trazodone HCl (Trazodone Hcl 50 Mg Tablet) 50 mg PO BEDTIME MRX1 PRN PRN Reason: Insomnia Last Admin: 11/23/22 18:58 Dose: 50 mg Allergies Allergies Allergy/AdvReac Type Severity Reaction Status Date / Time propofol Allergy Unknown Verified 11/18/22 12:22 warfarin Allergy Unknown Verified 11/18/22 12:22 Assessment & Plan Assessment & Plan (1) Schizoaffective disorder, bipolar type: Status: Acute Code(s): F25.0 - Schizoaffective disorder, bipolar type Plan Patient is a 56-year-old male on Section 12B with history of psychotic illness, likely schizoaffective disorder who presents after being picked up by police for disorganized behavior, found in a school parking lot unsure of where he was. Patient is calm, cooperative and polite though prone to being guarded and suspicious. He is somewhat of a limited historian due to some disorganized thought process. 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 Recently he was admitted to psychiatric hospital at [facility] in [place] for 2 weeks where he was started on Zyprexa which he says he has been taking regularly however he is concerned about this medication and has some paranoid delusions about the reasons it was started and the 1st place. Throughout discussion patient will intermittently make references to being followed, being persecuted by people or organizations, being poisoned, etc.; during interview several pigeons flew to the window and patient stopped to say that the bird was a Drone. He denies hearing actual voices but endorses getting electric sensations, radio waves, vibrations. He also made some references to being concerned about being on the unit too long and missing out on being in a movie with Woody Grajeda and Tree Mclaughlin. Patient reports that he has not gotten much sleep this past week; he says he has been on lithium in the past for ricky but stopped it saying it caused excessive urination and hyponatremia. Patient has insight to know that medications help him and was interested in clozapine, despite the need for weekly blood draws, given the relatively lowered risk of dystonia and tardive dyskinesia. Patient denies any SI or HI. PLAN Section 12 B; wants treatment and may be amenable to signing in Q 15 minute checks Increase Depakote to 1000 mg q.h.s. since typical level subtherapeutic and patient remains manic Continue Zyprexa 20 mg g q.h.s. for now Patient interested in clozapine; will strongly consider however lack of permanent residence makes weekly blood draws a barrier Will seek Collateral 11/21/22 Continue Olanzapine Encourage collateral contact consent 11/22/22 Increase Olanzapine to 30 mg HS Depakote ER 500 mg HS 11/23/22 Continue current regime Diagnostics next week-Valproate level, CBC Continue to work on consents for medical collateral 11/24/2022 Continue current regimen Will get Depakote level tomorrow since he will have reached steady state by than Patient remains manic and with paranoid delusions Depakote level subtherapeutic and patient agrees to increasing Depakote to 1000 mg 11/27/22 Continue current regime Hospitalist consult for mgt of thoracic aortic aneurysm Atenolol re-started at 25 mg daily-pt was taking this when in pt in [place] 10/20-11/10. 11/29/22 Valproate Level CBCD Patient educated on: therapeutic strategies Informed Consent: further education needed Reason for continued inpatient stay Substantial Risk for: med/psych decompensation Time Spent With Patient Time: Total time managing care of this patient today ____ minutes.
[2022-11-29] MEDS: Throat Lozenge, Medicated LOZENGE 1 LOZENGE MUCOUS MEM ×2 (14:48→19:49)
[2022-11-29 18:00] VITALS: BP 147/78; PULSE 84; RESP 20; TEMP 37; O2SAT 97
[2022-11-29] MEDS: Albuterol Sulfate 90 MCG 8 GM INHALER 2 PUFF INHALE (19:49)
[2022-11-29] MEDS: OLANZapine 10 MG TABLET 30 MG PO (21:00)
[2022-11-29] MEDS: Divalproex Sodium ER 500 MG TAB.ER.24H 1000 MG PO (21:01)
[2022-11-29] MEDS: Ibuprofen 400 MG TABLET PO (21:51)
[2022-11-29] MEDS: Melatonin 3 MG TABLET PO (22:20)
[2022-11-30 07:57] LABS: MANUAL DIFF FLAG NO
[2022-11-30 08:02] LABS: Basophils Absolute Auto 0.1 X10*3/uL (0.0-0.2); Basophils Percent Auto 0.9 % (0-2); Eosinophils Absolute Auto 0.3 X10*3/uL (0.0-0.4); Eosinophils Percent Auto 5.3 % (0-4); Hematocrit 46.4 % (42.0-52.0); Hemoglobin 15.4 g/dl (14.0-18.0); Imm Gran Abs Auto 0.02 X10*3/uL (0.00-0.03); Imm Gran Pct Auto 0.3 % (0.0-0.4); Lymphocytes Absolute Auto 1.6 X10*3/uL (1.2-4.9); Lymphocytes Percent Auto 27.4 % (20-40); Mean Corpuscular HGB Conc 33.2 g/dl (31.0-36.0); Mean Corpuscular Hemoglobin 31.4 pg (27.0-33.0); Mean Corpuscular Volume 94.5 fL (80.0-98.0); Mean Platelet Volume 8.7 fL (9.4-12.4); Monocytes Absolute Auto 0.5 X10*3/uL (0.1-1.2); Monocytes Percent Auto 9.1 % (2-11); Neutrophils Absolute Auto 3.3 x10*3/uL (2.0-8.3); Platelet Count 283 X10*3/uL (160-400); Red Blood Count 4.91 X10*6/uL (4.60-5.80); Red Cell Distribution Width 12.5 % (11.0-16.0); White Blood Count 5.9 X10*3/uL (4.8-10.8)
[2022-11-30 08:06] LABS: Ammonia 29 umol/L (13-55)
[2022-11-30] MEDS: atenoloL 25 MG TABLET PO (08:07)
[2022-11-30] MEDS: Loratadine 10 MG TABLET PO (08:07)
[2022-11-30 10:24] VITALS: BP 133/89; PULSE 87; RESP 16; TEMP 36.5; O2SAT 95
[2022-11-30] MEDS: Albuterol Sulfate 90 MCG 8 GM INHALER 2 PUFF INHALE (11:03)
--- NOTE | 2022-11-30 14:23 | HO.PSYCHPN ---
Subjective Subjective Date of Service: 11/30/22 Reason For Visit: disorganized, psychosis Subjective Notes: Section 7 Healthcare Proxy: No Guardianship: No Medical Problems Affecting Mental Status: No Interim History: Resolving ricky. Able to nap this afternoon. Continues to self-dialogue and reports he is not talking as much and I feel I am going in the right direction. Pt lives in his car. He is in the process of decision making regarding where he might like to live- he is considering [facility] or [facility]. Team has offered assist in connecting him with services. Denies sore throat, reports glands are not swollen today WBC is wnl. Declines throat culture. Medication Compliance: Yes Side effects from medications: Yes (?Sedation) Attending Groups: Intermittent Review of Systems Acute medical concerns: No Medical Review of Systems: unchanged Mental Status Exam Mental Status Exam Patient Appearance: Appropriate Patient Orientation: Person, Place, Time and Situation Level of Consciousness: Alert Patient Behavior: Appropriate, Talkative, Fatigued, Distractible and Good Eye Contact Mood Description: Labile Affect Description: Flat Patient Cognition Impaired: No Ability to Follow Directions: Fair Speech Pattern: Spontaneous Speech Memory Description: Remote Impaired and Episodic Impaired Hallucinations: None Delusions: Present Perceptual Disturbances: Derealization Thought Process: Illogical, Distracted and Rumination Thought Content: positive for Flight of Ideas, positive for Tangential, positive for Suicidal Ideation (denies) and positive for Homicidal Ideation (denies) Depressive Symptoms: Diff. Making Decisions and Difficulty Concentrating Judgement: Fair Diagnostics Vital Signs (24Hr): Vital Signs - 24 hr 11/29/22 18:00 11/30/22 10:24 Temperature 98.6 F 97.7 F Pulse Rate 84 87 Respiratory Rate 20 16 Blood Pressure 147/78 H 133/89 Pulse Oximetry 97 95 Oxygen Delivery Method Room Air Room Air BMI result Body Mass Index 32.3 Labs 11/30/22 07:51 11/18/22 13:23 Labs: Laboratory Results - last 48 hr 11/30/22 11/30/22 11/30/22 07:51 07:51 07:51 WBC 5.9 RBC 4.91 Hgb 15.4 Hct 46.4 MCV 94.5 MCH 31.4 MCHC 33.2 RDW 12.5 Plt Count 283 MPV 8.7 L Immature Gran % (Auto) 0.3 Neut % (Auto) 57.0 Lymph % (Auto) 27.4 [place] % (Auto) 9.1 Eos % (Auto) 5.3 H Baso % (Auto) 0.9 Lymph # (Auto) 1.6 [place] # (Auto) 0.5 Eos # (Auto) 0.3 Baso # (Auto) 0.1 Abs Immat Gran (auto) 0.02 Absolute Neuts (auto) 3.3 Absolute Nucleated RBC 0.000 Nucleated RBC % (auto) 0.0 Ammonia 29 Valproic Acid 52.0 Imaging Radiology Impressions: ITS Impressions Chest X-Ray 11/18/22 14:30 IMPRESSION: Minimal blunting of the left costophrenic angle could represent pleural scarring or very small left pleural effusion. Mild bibasilar atelectasis/scarring. Medications Medications Current Medications Acetaminophen (Acetaminophen 325 Mg Tablet) 650 mg PO Q6H PRN PRN Reason: Headache/Pain Mild Scale (1-3) Last Admin: 11/28/22 05:21 Dose: 650 mg Al Hydroxide/Mg Hydroxide (Magnesium Hydrox/Alum Hydrox 30 Ml Oral.Susp) 30 ml PO Q6H PRN PRN Reason: Heartburn/Nausea Albuterol Sulfate (Albuterol Sulfate 90 Mcg 8 Gm Inhaler) 2 puff INHALE Q4H PRN PRN Reason: Shortness Of Breath Or Wheezing Last Admin: 11/30/22 11:03 Dose: 2 puff Atenolol (Atenolol 25 Mg Tablet) 25 mg PO DAILY [facility]; Protocol Last Admin: 11/30/22 08:07 Dose: 25 mg Benzocaine (Throat Lozenge, Medicated Lozenge) 1 lozenge MUCOUS MEM Q2H PRN PRN Reason: Sore Throat Last Admin: 11/29/22 19:49 Dose: 1 lozenge Divalproex Sodium (Divalproex Sodium Er 500 Mg Tab.Er.24h) 1,000 mg PO BEDTIME LIANA Last Admin: 11/29/22 21:01 Dose: 1,000 mg Hydroxyzine HCl (Hydroxyzine Hcl 25 Mg Tablet) 25 mg PO Q6H PRN PRN Reason: Anxiety Ibuprofen (Ibuprofen 400 Mg Tablet) 400 mg PO Q8H PRN PRN Reason: Pain, Mild (Pain Scale 1-3) Last Admin: 11/29/22 21:51 Dose: 400 mg Loratadine (Loratadine 10 Mg Tablet) 10 mg PO DAILY LIANA Last Admin: 11/30/22 08:07 Dose: 10 mg Magnesium Hydroxide (Milk Of Magnesia 30 Ml Oral.Susp) 30 ml PO DAILY PRN PRN Reason: Constipation Melatonin (Melatonin 3 Mg Tablet) 3 mg PO BEDTIME PRN PRN Reason: Insomnia Last Admin: 11/29/22 22:20 Dose: 3 mg Nicotine Polacrilex (Nicotine Polacrilex 2 Mg Gum) 4 mg BUCCAL Q2H PRN PRN Reason: Nicotine Cravings Olanzapine (Olanzapine 5 Mg Tablet) 5 mg PO TID PRN PRN Reason: agitation Last Admin: 11/22/22 08:57 Dose: 5 mg Olanzapine (Olanzapine 10 Mg Tablet) 30 mg PO BEDTIME LIANA Last Admin: 11/29/22 21:00 Dose: 30 mg Ondansetron HCl (Ondansetron Odt 4 Mg Tab.Rapdis) 4 mg TRANSLINGU Q6H PRN PRN Reason: nasuea/vomit Trazodone HCl (Trazodone Hcl 50 Mg Tablet) 50 mg PO BEDTIME MRX1 PRN PRN Reason: Insomnia Last Admin: 11/23/22 18:58 Dose: 50 mg Allergies Allergies Allergy/AdvReac Type Severity Reaction Status Date / Time propofol Allergy Unknown Verified 11/18/22 12:22 warfarin Allergy Unknown Verified 11/18/22 12:22 Assessment & Plan Assessment & Plan (1) Schizoaffective disorder, bipolar type: Status: Acute Code(s): F25.0 - Schizoaffective disorder, bipolar type Plan Patient is a 56-year-old male on Section 12B with history of psychotic illness, likely schizoaffective disorder who presents after being picked up by police for disorganized behavior, found in a school parking lot unsure of where he was. Patient is calm, cooperative and polite though prone to being guarded and suspicious. He is somewhat of a limited historian due to some disorganized thought process. 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 Recently he was admitted to psychiatric hospital at [facility] in [place] for 2 weeks where he was started on Zyprexa which he says he has been taking regularly however he is concerned about this medication and has some paranoid delusions about the reasons it was started and the 1st place. Throughout discussion patient will intermittently make references to being followed, being persecuted by people or organizations, being poisoned, etc.; during interview several pigeons flew to the window and patient stopped to say that the bird was a Drone. He denies hearing actual voices but endorses getting electric sensations, radio waves, vibrations. He also made some references to being concerned about being on the unit too long and missing out on being in a movie with Woody Grajeda and Tree Mclaughlin. Patient reports that he has not gotten much sleep this past week; he says he has been on lithium in the past for ricky but stopped it saying it caused excessive urination and hyponatremia. Patient has insight to know that medications help him and was interested in clozapine, despite the need for weekly blood draws, given the relatively lowered risk of dystonia and tardive dyskinesia. Patient denies any SI or HI. PLAN Section 12 B; wants treatment and may be amenable to signing in Q 15 minute checks Increase Depakote to 1000 mg q.h.s. since typical level subtherapeutic and patient remains manic Continue Zyprexa 20 mg g q.h.s. for now Patient interested in clozapine; will strongly consider however lack of permanent residence makes weekly blood draws a barrier Will seek Collateral 11/21/22 Continue Olanzapine Encourage collateral contact consent 11/22/22 Increase Olanzapine to 30 mg HS Depakote ER 500 mg HS 11/23/22 Continue current regime Diagnostics next week-Valproate level, CBC Continue to work on consents for medical collateral 11/24/2022 Continue current regimen Will get Depakote level tomorrow since he will have reached steady state by than / Patient remains manic and with paranoid delusions Depakote level subtherapeutic and patient agrees to increasing Depakote to 1000 mg 11/27/22 Continue current regime Hospitalist consult for mgt of thoracic aortic aneurysm Atenolol re-started at 25 mg daily-pt was taking this when in pt in [place] 10/20-11/10. 11/29/22 Valproate Level CBCD 11/30/22 Continue current regime Informed Consent: further education needed Reason for continued inpatient stay Substantial Risk for: rapid decompensation Time Spent With Patient Time: Total time managing care of this patient today ____ minutes.
[2022-11-30 18:00] VITALS: BP 132/91; PULSE 84; RESP 22; TEMP 35.9; O2SAT 96
[2022-11-30] MEDS: OLANZapine 10 MG TABLET 30 MG PO (21:15)
[2022-11-30] MEDS: Divalproex Sodium ER 500 MG TAB.ER.24H 1000 MG PO (21:15)
[2022-11-30] MEDS: Melatonin 3 MG TABLET PO (21:16)
[2022-12-01 04:05] VITALS: BP 133/88; PULSE 74; RESP 18; TEMP 36.2; O2SAT 95
[2022-12-01 06:00] VITALS: BP 134/88; PULSE 90; RESP 18
[2022-12-01] MEDS: atenoloL 25 MG TABLET PO (08:28)
[2022-12-01] MEDS: Loratadine 10 MG TABLET PO (08:28)
--- NOTE | 2022-12-01 11:36 | P.PNPSI_ITS ---
Subjective Subjective Date of Service: 12/01/22 Reason For Visit: disorganized, psychosis Interim History: Resolving ricky. Patient doing better overall. He continues with some pressured and disorganized thinking but less so. Sleeping better. He feels meds are helping. He says he was talking a lot because he was isolated in [place]. Med and meal compliant. Continues to self-dialogue. Review of Systems Review of Systems Constitutional : No Weight loss, No Fever, No Chills, No Fatigue, No Malaise ENT/Mouth : No sore throat, No Rhinorrhea Eyes: No Eye Pain, No Swelling, No Redness Cardiovascular : No Chest Pain, No SOB, No Dyspnea on Exertion, No Orthopnea, No Edema, No Palpitations Respiratory : No Cough, No Sputum, No Wheezing Gastrointestinal : No Nausea, No Vomiting, No Diarrhea, No Constipation, No a bdominal Pain, No Hematochezia, No Melena Genitourinary : No Dysuria, No Urinary Frequency, No Hematuria, Musculoskeletal : No joint pain, No Myalgias, No Joint Swelling Skin : No Skin Lesions, No rash Neuro : No Weakness, No Numbness, No Dizziness, No Headache Psych : + Anxiety/Panic, + Depression, No SI/HI All other systems reviewed and are negative Yes all other systems are reviewed and are negative Mental Status Exam Mental Status Exam Narrative: Pt is alert and oriented; behavior is cooperative, friendly and calm but also suspicious and guarded; patient is not in distress; dressed in casual attire with unkempt hair and scruffy facial hair; mood is described as okay and affect congruent; eye contact appropriate; Speech is normal rate, volume and prosody and not pressured; some mild psychomotor agitation present as patient is pacing the novak; thought process can be goal directed but is also disorganized; Thought content is on paranoid delusional thoughts but also on treatment; some grandiosity; denies any SI/HI. Patient internally preoccupied, self dialogueing and has some amount of AH Patients insight and judgment are impaired. Patient Appearance: Appropriate Patient Orientation: Person, Place, Time and Situation Level of Consciousness: Alert Patient Behavior: Appropriate, Talkative, Fatigued, Distractible and Good Eye Contact Mood Description: Labile Affect Description: Flat Patient Cognition Impaired: No Ability to Follow Directions: Fair Speech Pattern: Spontaneous Speech Memory Description: Remote Impaired and Episodic Impaired Diagnostics Vital Signs (24Hr): Vital Signs - 24 hr 11/30/22 18:00 12/01/22 04:05 12/01/22 06:00 Temperature 96.7 F L 97.2 F Pulse Rate 84 74 90 Respiratory Rate 22 H 18 18 Blood Pressure 132/91 H 133/88 134/88 Pulse Oximetry 96 95 Oxygen Delivery Method Room Air Room Air BMI result Body Mass Index 32.3 Labs 11/30/22 07:51 11/18/22 13:23 Labs: Laboratory Results - last 48 hr 11/30/22 11/30/22 11/30/22 07:51 07:51 07:51 WBC 5.9 RBC 4.91 Hgb 15.4 Hct 46.4 MCV 94.5 MCH 31.4 MCHC 33.2 RDW 12.5 Plt Count 283 MPV 8.7 L Immature Gran % (Auto) 0.3 Neut % (Auto) 57.0 Lymph % (Auto) 27.4 [place] % (Auto) 9.1 Eos % (Auto) 5.3 H Baso % (Auto) 0.9 Lymph # (Auto) 1.6 [place] # (Auto) 0.5 Eos # (Auto) 0.3 Baso # (Auto) 0.1 Abs Immat Gran (auto) 0.02 Absolute Neuts (auto) 3.3 Absolute Nucleated RBC 0.000 Nucleated RBC % (auto) 0.0 Ammonia 29 Valproic Acid 52.0 Imaging Radiology Impressions: ITS Impressions Chest X-Ray 11/18/22 14:30 IMPRESSION: Minimal blunting of the left costophrenic angle could represent pleural scarring or very small left pleural effusion. Mild bibasilar atelectasis/scarring. Medications Medications Current Medications Acetaminophen (Acetaminophen 325 Mg Tablet) 650 mg PO Q6H PRN PRN Reason: Headache/Pain Mild Scale (1-3) Last Admin: 11/28/22 05:21 Dose: 650 mg Al Hydroxide/Mg Hydroxide (Magnesium Hydrox/Alum Hydrox 30 Ml Oral.Susp) 30 ml PO Q6H PRN PRN Reason: Heartburn/Nausea Albuterol Sulfate (Albuterol Sulfate 90 Mcg 8 Gm Inhaler) 2 puff INHALE Q4H PRN PRN Reason: Shortness Of Breath Or Wheezing Last Admin: 11/30/22 11:03 Dose: 2 puff Atenolol (Atenolol 25 Mg Tablet) 25 mg PO DAILY [facility]; Protocol Last Admin: 12/01/22 08:28 Dose: 25 mg Benzocaine (Throat Lozenge, Medicated Lozenge) 1 lozenge MUCOUS MEM Q2H PRN PRN Reason: Sore Throat Last Admin: 11/29/22 19:49 Dose: 1 lozenge Divalproex Sodium (Divalproex Sodium Er 500 Mg Tab.Er.24h) 1,000 mg PO BEDTIME [facility] Last Admin: 11/30/22 21:15 Dose: 1,000 mg Hydroxyzine HCl (Hydroxyzine Hcl 25 Mg Tablet) 25 mg PO Q6H PRN PRN Reason: Anxiety Ibuprofen (Ibuprofen 400 Mg Tablet) 400 mg PO Q8H PRN PRN Reason: Pain, Mild (Pain Scale 1-3) Last Admin: 11/29/22 21:51 Dose: 400 mg Loratadine (Loratadine 10 Mg Tablet) 10 mg PO DAILY [facility] Last Admin: 12/01/22 08:28 Dose: 10 mg Magnesium Hydroxide (Milk Of Magnesia 30 Ml Oral.Susp) 30 ml PO DAILY PRN PRN Reason: Constipation Melatonin (Melatonin 3 Mg Tablet) 3 mg PO BEDTIME PRN PRN Reason: Insomnia Last Admin: 11/30/22 21:16 Dose: 3 mg Nicotine Polacrilex (Nicotine Polacrilex 2 Mg Gum) 4 mg BUCCAL Q2H PRN PRN Reason: Nicotine Cravings Olanzapine (Olanzapine 5 Mg Tablet) 5 mg PO TID PRN PRN Reason: agitation Last Admin: 11/22/22 08:57 Dose: 5 mg Olanzapine (Olanzapine 10 Mg Tablet) 30 mg PO BEDTIME [facility] Last Admin: 11/30/22 21:15 Dose: 30 mg Ondansetron HCl (Ondansetron Odt 4 Mg Tab.Rapdis) 4 mg TRANSLINGU Q6H PRN PRN Reason: nasuea/vomit Trazodone HCl (Trazodone Hcl 50 Mg Tablet) 50 mg PO BEDTIME MRX1 PRN PRN Reason: Insomnia Last Admin: 11/23/22 18:58 Dose: 50 mg Allergies Allergies Allergy/AdvReac Type Severity Reaction Status Date / Time propofol Allergy Unknown Verified 11/18/22 12:22 warfarin Allergy Unknown Verified 11/18/22 12:22 Assessment & Plan Assessment & Plan (1) Schizoaffective disorder, bipolar type: Status: Acute Code(s): F25.0 - Schizoaffective disorder, bipolar type Plan Patient is a 56-year-old male on Section 12B with history of psychotic illness, likely schizoaffective disorder who presents after being picked up by police for disorganized behavior, found in a school parking lot unsure of where he was. Patient is calm, cooperative and polite though prone to being guarded and suspicious. He is somewhat of a limited historian due to some disorganized thought process. Patient reports that he used to be on risperidone up to 9 mg; it is not sure how long ago he was on this medication but he seems to say he tapered himself off of at some point concerned about the possible [place] [facility] side effects. Recently he was admitted to psychiatric hospital at [facility] in [place] for 2 weeks where he was started on Zyprexa which he says he has been taking regularly however he is concerned about this medication and has some paranoid delusions about the reasons it was started and the 1st place. Throughout discussion patient will intermittently make references to being followed, being persecuted by people or organizations, being poisoned, etc.; during interview several pigeons flew to the window and patient stopped to say that the bird was a Drone. He denies hearing actual voices but endorses getting electric sensations, radio waves, vibrations. He also made some references to being concerned about being on the unit too long and missing out on being in a movie with Woody Grajeda and Tree Mclaughlin. Patient reports that he has not gotten much sleep this past week; he says he has been on lithium in the past for ricky but stopped it saying it caused excessive urination and hyponatremia. Patient has insight to know that medications help him and was interested in clozapine, despite the need for weekly blood draws, given the relatively lowered risk of dystonia and tardive dyskinesia. Patient denies any SI or HI. PLAN Section 12 B; wants treatment and may be amenable to signing in Q 15 minute checks Increase Depakote to 1000 mg q.h.s. since typical level subtherapeutic and patient remains manic Continue Zyprexa 20 mg g q.h.s. for now Patient interested in clozapine; will strongly consider however lack of permanent residence makes weekly blood draws a barrier Will seek Collateral 11/21/22 Continue Olanzapine Encourage collateral contact consent 11/22/22 Increase Olanzapine to 30 mg HS Depakote ER 500 mg HS 11/23/22 Continue current regime Diagnostics next week-Valproate level, CBC Continue to work on consents for medical collateral 11/24/2022 Continue current regimen Will get Depakote level tomorrow since he will have reached steady state by than / Patient remains manic and with paranoid delusions Depakote level subtherapeutic and patient agrees to increasing Depakote to 1000 mg 11/27/22 Continue current regime Hospitalist consult for mgt of thoracic aortic aneurysm Atenolol re-started at 25 mg daily-pt was taking this when in pt in [place] 10/20-11/10. 11/29/22 Valproate Level CBCD 11/30/22 Continue current regime 12/01: Continue current plan. Reason for continued inpatient stay Substantial Risk for: inability to function and rapid decompensation Time Spent With Patient Time: Total time managing care of this patient today ____ minutes.
[2022-12-01 15:34] VITALS: BP 122/72; PULSE 75; TEMP 36.6
[2022-12-01] MEDS: Divalproex Sodium ER 500 MG TAB.ER.24H 1000 MG PO (22:15)
[2022-12-01] MEDS: OLANZapine 10 MG TABLET 30 MG PO (22:15)
[2022-12-01] MEDS: Melatonin 3 MG TABLET PO (22:16)
[2022-12-02 06:00] VITALS: BP 133/85; PULSE 85; RESP 16
[2022-12-02] MEDS: atenoloL 25 MG TABLET PO (07:44)
[2022-12-02] MEDS: Loratadine 10 MG TABLET PO (07:44)
[2022-12-02] MEDS: Ibuprofen 400 MG TABLET PO (09:35)
[2022-12-02] MEDS: Melatonin 3 MG TABLET PO (19:19)
[2022-12-02] MEDS: OLANZapine 10 MG TABLET 30 MG PO (19:19)
[2022-12-02] MEDS: Divalproex Sodium ER 500 MG TAB.ER.24H 1500 MG PO (19:19)
--- NOTE | 2022-12-02 19:41 | HO.PSYCHPN ---
Subjective Subjective Date of Service: 12/02/22 Reason For Visit: disorganized, psychosis Interim History: Resolving ricky. Improving but continues to say his thoughts are racing and I have a lot of clitter denys Feels he is talking fast. He is softer spoken but thought process continues tangential and disorganized. Reports from team indicate some self dialogue continues. Overall improved compared to admission. Review of Systems Review of Systems Constitutional : No Weight loss, No Fever, No Chills, No Fatigue, No Malaise ENT/Mouth : No sore throat, No Rhinorrhea Eyes: No Eye Pain, No Swelling, No Redness Cardiovascular : No Chest Pain, No SOB, No Dyspnea on Exertion, No Orthopnea, No Edema, No Palpitations Respiratory : No Cough, No Sputum, No Wheezing Gastrointestinal : No Nausea, No Vomiting, No Diarrhea, No Constipation, No abdominal Pain, No Hematochezia, No Melena Genitourinary : No Dysuria, No Urinary Frequency, No Hematuria, Musculoskeletal : No joint pain, No Myalgias, No Joint Swelling Skin : No Skin Lesions, No rash Neuro : No Weakness, No Numbness, No Dizziness, No Headache Psych : + Anxiety/Panic, + Depression, No SI/HI All other systems reviewed and are negative Yes all other systems are reviewed and are negative Mental Status Exam Mental Status Exam Narrative: Pt is alert and oriented; behavior is cooperative, friendly and calm but also suspicious and guarded; patient is not in distress; dressed in casual attire with unkempt hair and scruffy facial hair; mood is described as okay and affect congruent; eye contact appropriate; Speech is normal rate, volume and prosody and not pressured; some mild psychomotor agitation present as patient is pacing the novak; thought process can be goal directed but is also disorganized; Thought content is on paranoid delusional thoughts but also on treatment; some grandiosity; denies any SI/HI. Patient internally preoccupied, self dialogueing and has some amount of AH Patients insight and judgment are impaired. Patient Appearance: Appropriate Patient Orientation: Person, Place, Time and Situation Level of Consciousness: Alert Patient Behavior: Appropriate, Talkative, Fatigued, Distractible and Good Eye Contact Mood Description: Labile Affect Description: Flat Patient Cognition Impaired: No Ability to Follow Directions: Fair Speech Pattern: Spontaneous Speech Memory Description: Remote Impaired and Episodic Impaired Diagnostics Vital Signs (24Hr): Vital Signs - 24 hr 06/25/23 06:00 Pulse Rate 85 Respiratory Rate 16 Blood Pressure 133/85 BMI result Body Mass Index 32.3 Labs 11/30/22 07:51 11/18/22 13:23 Imaging Radiology Impressions: ITS Impressions Chest X-Ray 11/18/22 14:30 IMPRESSION: Minimal blunting of the left costophrenic angle could represent pleural scarring or very small left pleural effusion. Mild bibasilar atelectasis/scarring. Medications Medications Current Medications Acetaminophen (Acetaminophen 325 Mg Tablet) 650 mg PO Q6H PRN PRN Reason: Headache/Pain Mild Scale (1-3) Last Admin: 11/28/22 05:21 Dose: 650 mg Al Hydroxide/Mg Hydroxide (Magnesium Hydrox/Alum Hydrox 30 Ml Oral.Susp) 30 ml PO Q6H PRN PRN Reason: Heartburn/Nausea Albuterol Sulfate (Albuterol Sulfate 90 Mcg 8 Gm Inhaler) 2 puff INHALE Q4H PRN PRN Reason: Shortness Of Breath Or Wheezing Last Admin: 11/30/22 11:03 Dose: 2 puff Atenolol (Atenolol 25 Mg Tablet) 25 mg PO DAILY [facility]; Protocol Last Admin: 12/02/22 07:44 Dose: 25 mg Benzocaine (Throat Lozenge, Medicated Lozenge) 1 lozenge MUCOUS MEM Q2H PRN PRN Reason: Sore Throat Last Admin: 11/29/22 19:49 Dose: 1 lozenge Divalproex Sodium (Divalproex Sodium Er 500 Mg Tab.Er.24h) 1,500 mg PO BEDTIME [facility] Last Admin: 12/02/22 19:19 Dose: 1,500 mg Hydroxyzine HCl (Hydroxyzine Hcl 25 Mg Tablet) 25 mg PO Q6H PRN PRN Reason: Anxiety Ibuprofen (Ibuprofen 400 Mg Tablet) 400 mg PO Q8H PRN PRN Reason: Pain, Mild (Pain Scale 1-3) Last Admin: 12/02/22 09:35 Dose: 400 mg Loratadine (Loratadine 10 Mg Tablet) 10 mg PO DAILY [facility] Last Admin: 12/02/22 07:44 Dose: 10 mg Magnesium Hydroxide (Milk Of Magnesia 30 Ml Oral.Susp) 30 ml PO DAILY PRN PRN Reason: Constipation Melatonin (Melatonin 3 Mg Tablet) 3 mg PO BEDTIME PRN PRN Reason: Insomnia Last Admin: 12/02/22 19:19 Dose: 3 mg Nicotine Polacrilex (Nicotine Polacrilex 2 Mg Gum) 4 mg BUCCAL Q2H PRN PRN Reason: Nicotine Cravings Olanzapine (Olanzapine 5 Mg Tablet) 5 mg PO TID PRN PRN Reason: agitation Last Admin: 11/22/22 08:57 Dose: 5 mg Olanzapine (Olanzapine 10 Mg Tablet) 30 mg PO BEDTIME LIANA Last Admin: 12/02/22 19:19 Dose: 30 mg Ondansetron HCl (Ondansetron Odt 4 Mg Tab.Rapdis) 4 mg TRANSLINGU Q6H PRN PRN Reason: nasuea/vomit Trazodone HCl (Trazodone Hcl 50 Mg Tablet) 50 mg PO BEDTIME MRX1 PRN PRN Reason: Insomnia Last Admin: 11/23/22 18:58 Dose: 50 mg Allergies Allergies Allergy/AdvReac Type Severity Reaction Status Date / Time propofol Allergy Unknown Verified 11/18/22 12:22 warfarin Allergy Unknown Verified 11/18/22 12:22 Assessment & Plan Assessment & Plan (1) Schizoaffective disorder, bipolar type: Status: Acute Code(s): F25.0 - Schizoaffective disorder, bipolar type Plan Patient is a 56-year-old male on [place] 12[place] with history of psychotic illness, likely schizoaffective disorder who presents after being picked up by police for disorganized behavior, found in a school parking lot unsure of where he was. Patient is calm, cooperative and polite though prone to being guarded and suspicious. He is somewhat of a limited historian due to some disorganized thought process. 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 Recently he was admitted to psychiatric hospital at [facility] in [place] for 2 weeks where he was started on Zyprexa which he says he has been taking regularly however he is concerned about this medication and has some paranoid delusions about the reasons it was started and the 1st place. Throughout discussion patient will intermittently make references to being followed, being persecuted by people or organizations, being poisoned, etc.; during interview several pigeons flew to the window and patient stopped to say that the bird was a Drone. He denies hearing actual voices but endorses getting electric sensations, radio waves, vibrations. He also made some references to being concerned about being on the unit too long and missing out on being in a movie with Woody Grajeda and Tree Mclaughlin. Patient reports that he has not gotten much sleep this past week; he says he has been on lithium in the past for ricky but stopped it saying it caused excessive urination and hyponatremia. Patient has insight to know that medications help him and was interested in clozapine, despite the need for weekly blood draws, given the relatively lowered risk of dystonia and tardive dyskinesia. Patient denies any SI or HI. PLAN Section 12 B; wants treatment and may be amenable to signing in Q 15 minute checks Increase Depakote to 1000 mg q.h.s. since typical level subtherapeutic and patient remains manic Continue Zyprexa 20 mg g q.h.s. for now Patient interested in clozapine; will strongly consider however lack of permanent residence makes weekly blood draws a barrier Will seek Collateral 11/21/22 Continue Olanzapine Encourage collateral contact consent 11/22/22 Increase Olanzapine to 30 mg HS Depakote ER 500 mg HS 11/23/22 Continue current regime Diagnostics next week-Valproate level, CBC Continue to work on consents for medical collateral 11/24/2022 Continue current regimen Will get Depakote level tomorrow since he will have reached steady state by than 61/23 Patient remains manic and with paranoid delusions Depakote level subtherapeutic and patient agrees to increasing Depakote to 1000 mg 11/27/22 Continue current regime Hospitalist consult for mgt of thoracic aortic aneurysm Atenolol re-started at 25 mg daily-pt was taking this when in pt in [place] 10/20-11/10. 11/29/22 Valproate Level CBCD 11/30/22 Continue current regime 12/01: Continue current plan. 12/02: Increase Depakote to 1,500 mg HS. Level was 52. Reason for continued inpatient stay Substantial Risk for: inability to function and rapid decompensation Time Spent With Patient Time: Total time managing care of this patient today ____ minutes.
[2022-12-02 22:50] VITALS: BP 126/70; PULSE 85
[2022-12-03 08:05] VITALS: BP 159/95; PULSE 81; RESP 18; TEMP 36.2; O2SAT 98
[2022-12-03] MEDS: Loratadine 10 MG TABLET PO (08:25)
[2022-12-03] MEDS: atenoloL 25 MG TABLET PO (08:25)
--- NOTE | 2022-12-03 16:41 | HO.PSYCHPN ---
Subjective Subjective Date of Service: 12/03/22 Reason For Visit: disorganized, psychosis Subjective Notes: Section 7 Healthcare Proxy: No Guardianship: No Medical Problems Affecting Mental Status: No Interim History: Reports feeling improved. I am too blessed to be depressed he reports to the team. Valproate increased over the weekend and pt is tolerating this. Discussed decreasing Olanzapine-will trial by 5 mg today and 5 mg 12/04. Pt continues to be tangential and somewhat scattered. ?Risperdal augment Medication Compliance: Yes Side effects from medications: No Attending Groups: Intermittent Review of Systems Acute medical concerns: No Medical Review of Systems: unchanged Mental Status Exam Mental Status Exam Patient Appearance: Appropriate Patient Orientation: Person, Place, Time and Situation Level of Consciousness: Alert Patient Behavior: Appropriate, Talkative, Cooperative and Good Eye Contact Mood Description: Flat Affect Description: Flat Patient Cognition Impaired: No Ability to Follow Directions: Good Speech Pattern: Spontaneous Speech Memory Description: Remote Impaired Hallucinations: None Delusions: Present Perceptual Disturbances: Derealization Thought Process: Illogical, Distracted and Confusion Thought Content: positive for Flight of Ideas, positive for Racing, positive for Circumstantial, positive for Perseveration, positive for Tangential, positive for Suicidal Ideation (denies) and positive for Homicidal Ideation (denies) Depressive Symptoms: Difficulty Concentrating Judgement: Fair Diagnostics Vital Signs (24Hr): Vital Signs - 24 hr 12/02/22 22:50 12/03/22 08:05 Temperature 97.2 F Pulse Rate 85 81 Respiratory Rate 18 Blood Pressure 126/70 159/95 H Pulse Oximetry 98 Oxygen Delivery Method Room Air BMI result Body Mass Index 32.3 Labs 11/30/22 07:51 11/18/22 13:23 Imaging Radiology Impressions: ITS Impressions Chest X-Ray 11/18/22 14:30 IMPRESSION: Minimal blunting of the left costophrenic angle could represent pleural scarring or very small left pleural effusion. Mild bibasilar atelectasis/scarring. Medications Medications Current Medications Acetaminophen (Acetaminophen 325 Mg Tablet) 650 mg PO Q6H PRN PRN Reason: Headache/Pain Mild Scale (1-3) Last Admin: 11/28/22 05:21 Dose: 650 mg Al Hydroxide/Mg Hydroxide (Magnesium Hydrox/Alum Hydrox 30 Ml Oral.Susp) 30 ml PO Q6H PRN PRN Reason: Heartburn/Nausea Albuterol Sulfate (Albuterol Sulfate 90 Mcg 8 Gm Inhaler) 2 puff INHALE Q4H PRN PRN Reason: Shortness Of Breath Or Wheezing Last Admin: 11/30/22 11:03 Dose: 2 puff Atenolol (Atenolol 25 Mg Tablet) 25 mg PO DAILY [facility]; Protocol Last Admin: 12/03/22 08:25 Dose: 25 mg Benzocaine (Throat Lozenge, Medicated Lozenge) 1 lozenge MUCOUS MEM Q2H PRN PRN Reason: Sore Throat Last Admin: 11/29/22 19:49 Dose: 1 lozenge Divalproex Sodium (Divalproex Sodium Er 500 Mg Tab.Er.24h) 1,500 mg PO BEDTIME LIANA Last Admin: 12/02/22 19:19 Dose: 1,500 mg Hydroxyzine HCl (Hydroxyzine Hcl 25 Mg Tablet) 25 mg PO Q6H PRN PRN Reason: Anxiety Ibuprofen (Ibuprofen 400 Mg Tablet) 400 mg PO Q8H PRN PRN Reason: Pain, Mild (Pain Scale 1-3) Last Admin: 12/02/22 09:35 Dose: 400 mg Loratadine (Loratadine 10 Mg Tablet) 10 mg PO DAILY [facility] Last Admin: 12/03/22 08:25 Dose: 10 mg Magnesium Hydroxide (Milk Of Magnesia 30 Ml Oral.Susp) 30 ml PO DAILY PRN PRN Reason: Constipation Melatonin (Melatonin 3 Mg Tablet) 3 mg PO BEDTIME PRN PRN Reason: Insomnia Last Admin: 12/02/22 19:19 Dose: 3 mg Nicotine Polacrilex (Nicotine Polacrilex 2 Mg Gum) 4 mg BUCCAL Q2H PRN PRN Reason: Nicotine Cravings Olanzapine (Olanzapine 5 Mg Tablet) 5 mg PO TID PRN PRN Reason: agitation Last Admin: 11/22/22 08:57 Dose: 5 mg Olanzapine (Olanzapine 10 Mg Tablet) 30 mg PO BEDTIME [facility] Last Admin: 12/02/22 19:19 Dose: 30 mg Ondansetron HCl (Ondansetron Odt 4 Mg Tab.Rapdis) 4 mg TRANSLINGU Q6H PRN PRN Reason: nasuea/vomit Trazodone HCl (Trazodone Hcl 50 Mg Tablet) 50 mg PO BEDTIME MRX1 PRN PRN Reason: Insomnia Last Admin: 11/23/22 18:58 Dose: 50 mg Allergies Allergies Allergy/AdvReac Type Severity Reaction Status Date / Time propofol Allergy Unknown Verified 11/18/22 12:22 warfarin Allergy Unknown Verified 11/18/22 12:22 Assessment & Plan Assessment & Plan (1) Schizoaffective disorder, bipolar type: Status: Acute Code(s): F25.0 - Schizoaffective disorder, bipolar type Plan Patient is a 56-year-old male on Section 12B with history of psychotic illness, likely schizoaffective disorder who presents after being picked up by police for disorganized behavior, found in a school parking lot unsure of where he was. Patient is calm, cooperative and polite though prone to being guarded and suspicious. He is somewhat of a limited historian due to some disorganized thought process. 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 Recently he was admitted to psychiatric hospital at [facility] in [place] for 2 weeks where he was started on Zyprexa which he says he has been taking regularly however he is concerned about this medication and has some paranoid delusions about the reasons it was started and the 1st place. Throughout discussion patient will intermittently make references to being followed, being persecuted by people or organizations, being poisoned, etc.; during interview several pigeons flew to the window and patient stopped to say that the bird was a Drone. He denies hearing actual voices but endorses getting electric sensations, radio waves, vibrations. He also made some references to being concerned about being on the unit too long and missing out on being in a movie with Woody Grajeda and Tree Mclaughlin. Patient reports that he has not gotten much sleep this past week; he says he has been on lithium in the past for ricky but stopped it saying it caused excessive urination and hyponatremia. Patient has insight to know that medications help him and was interested in clozapine, despite the need for weekly blood draws, given the relatively lowered risk of dystonia and tardive dyskinesia. Patient denies any SI or HI. PLAN Section 12 B; wants treatment and may be amenable to signing in Q 15 minute checks Increase Depakote to 1000 mg q.h.s. since typical level subtherapeutic and patient remains manic Continue Zyprexa 20 mg g q.h.s. for now Patient interested in clozapine; will strongly consider however lack of permanent residence makes weekly blood draws a barrier Will seek Collateral 11/21/22 Continue Olanzapine Encourage collateral contact consent 11/22/22 Increase Olanzapine to 30 mg HS Depakote ER 500 mg HS 11/23/22 Continue current regime Diagnostics next week-Valproate level, CBC Continue to work on consents for medical collateral 11/24/2022 Continue current regimen Will get Depakote level tomorrow since he will have reached steady state by than Patient remains manic and with paranoid delusions Depakote level subtherapeutic and patient agrees to increasing Depakote to 1000 mg 11/27/22 Continue current regime Hospitalist consult for mgt of thoracic aortic aneurysm Atenolol re-started at 25 mg daily-pt was taking this when in pt in [place] 10/20-11/10. 11/29/22 Valproate Level CBCD 11/30/22 Continue current regime 12/01: Continue current plan. 12/02: Increase Depakote to 1,500 mg HS. Level was 52. 12/03/22: Decrease Olanzapine to 25 mg HS Simethicone prn per pt request Flexeril 5 mg tid prn per pt request Patient educated on: medication risk/benefits and therapeutic strategies Informed Consent: further education needed Reason for continued inpatient stay Substantial Risk for: rapid decompensation Time Spent With Patient Time: Total time managing care of this patient today ____ minutes.
[2022-12-03 18:00] VITALS: BP 134/77; PULSE 89; TEMP 36.7; O2SAT 96
[2022-12-03] MEDS: Ibuprofen 400 MG TABLET PO (18:54)
[2022-12-03] MEDS: OLANZapine 5 MG TABLET 25 MG PO (20:51)
[2022-12-03] MEDS: Divalproex Sodium ER 500 MG TAB.ER.24H 1500 MG PO (20:52)
[2022-12-04 08:05] VITALS: BP 135/85; PULSE 87; RESP 18; TEMP 36.7; O2SAT 95
[2022-12-04] MEDS: atenoloL 25 MG TABLET PO (08:22)
[2022-12-04] MEDS: Loratadine 10 MG TABLET PO (08:22)
[2022-12-04] MEDS: Ibuprofen 400 MG TABLET PO (10:53)
[2022-12-04 16:51] VITALS: BP 125/75; PULSE 79; RESP 18; TEMP 36.6; O2SAT 96
--- NOTE | 2022-12-04 16:54 | HO.PSYCHPN ---
Subjective Subjective Date of Service: 12/04/22 Reason For Visit: disorganized, psychosis Subjective Notes: Section 7 Healthcare Proxy: No Guardianship: No Medical Problems Affecting Mental Status: No Interim History: Tolerating decrease of Olanzapine by 5 mg. Reports feeling well. The question is where to live. He has many ideas and agrees living in his car is not the best plan for his health. Discussed options. Speech is quiet, slower, pt comments, I am beginning to sound like myself. Reports he feels he is improving, returning to baseline. Medication Compliance: Yes Side effects from medications: No Attending Groups: Yes Review of Systems Acute medical concerns: No Medical Review of Systems: unchanged Mental Status Exam Mental Status Exam Patient Appearance: Appropriate Patient Orientation: Person, Place, Time and Situation Level of Consciousness: Alert Patient Behavior: Appropriate, Talkative, Cooperative and Good Eye Contact Mood Description: Flat Affect Description: Flat Patient Cognition Impaired: No Ability to Follow Directions: Good Speech Pattern: Spontaneous Speech Memory Description: Remote Impaired Hallucinations: None Delusions: Present Perceptual Disturbances: Derealization Thought Process: Illogical, Distracted and Confusion Thought Content: positive for Flight of Ideas, positive for Racing, positive for Circumstantial, positive for Perseveration, positive for Tangential, positive for Suicidal Ideation (denies) and positive for Homicidal Ideation (denies) Depressive Symptoms: Difficulty Concentrating Judgement: Fair Diagnostics Vital Signs (24Hr): Vital Signs - 24 hr 12/03/22 18:00 12/04/22 08:05 12/04/22 16:51 Temperature 98.1 F 98.1 F 97.8 F Pulse Rate 89 87 79 Respiratory Rate 18 18 Blood Pressure 134/77 135/85 125/75 Pulse Oximetry 96 95 96 Oxygen Delivery Method Room Air Room Air Room Air BMI result Body Mass Index 32.3 Labs 11/30/22 07:51 11/18/22 13:23 Imaging Radiology Impressions: ITS Impressions Chest X-Ray 11/18/22 14:30 IMPRESSION: Minimal blunting of the left costophrenic angle could represent pleural scarring or very small left pleural effusion. Mild bibasilar atelectasis/scarring. Medications Medications Current Medications Acetaminophen (Acetaminophen 325 Mg Tablet) 650 mg PO Q6H PRN PRN Reason: Headache/Pain Mild Scale (1-3) Last Admin: 11/28/22 05:21 Dose: 650 mg Al Hydroxide/Mg Hydroxide (Magnesium Hydrox/Alum Hydrox 30 Ml Oral.Susp) 30 ml PO Q6H PRN PRN Reason: Heartburn/Nausea Albuterol Sulfate (Albuterol Sulfate 90 Mcg 8 Gm Inhaler) 2 puff INHALE Q4H PRN PRN Reason: Shortness Of Breath Or Wheezing Last Admin: 11/30/22 11:03 Dose: 2 puff Atenolol (Atenolol 25 Mg Tablet) 25 mg PO DAILY [facility]; Protocol Last Admin: 12/04/22 08:22 Dose: 25 mg Benzocaine (Throat Lozenge, Medicated Lozenge) 1 lozenge MUCOUS MEM Q2H PRN PRN Reason: Sore Throat Last Admin: 11/29/22 19:49 Dose: 1 lozenge Cyclobenzaprine HCl (Cyclobenzaprine Hcl 5 Mg Tablet) 5 mg PO TID PRN PRN Reason: back pain Divalproex Sodium (Divalproex Sodium Er 500 Mg Tab.Er.24h) 1,500 mg PO BEDTIME [facility] Last Admin: 12/03/22 20:52 Dose: 1,500 mg Hydroxyzine HCl (Hydroxyzine Hcl 25 Mg Tablet) 25 mg PO Q6H PRN PRN Reason: Anxiety Ibuprofen (Ibuprofen 400 Mg Tablet) 400 mg PO Q8H PRN PRN Reason: Pain, Mild (Pain Scale 1-3) Last Admin: 12/04/22 10:53 Dose: 400 mg Loratadine (Loratadine 10 Mg Tablet) 10 mg PO DAILY [facility] Last Admin: 12/04/22 08:22 Dose: 10 mg Magnesium Hydroxide (Milk Of Magnesia 30 Ml Oral.Susp) 30 ml PO DAILY PRN PRN Reason: Constipation Melatonin (Melatonin 3 Mg Tablet) 3 mg PO BEDTIME PRN PRN Reason: Insomnia Last Admin: 12/02/22 19:19 Dose: 3 mg Nicotine Polacrilex (Nicotine Polacrilex 2 Mg Gum) 4 mg BUCCAL Q2H PRN PRN Reason: Nicotine Cravings Olanzapine (Olanzapine 5 Mg Tablet) 5 mg PO TID PRN PRN Reason: agitation Last Admin: 11/22/22 08:57 Dose: 5 mg Olanzapine (Olanzapine 5 Mg Tablet) 25 mg PO BEDTIME [facility] Last Admin: 12/03/22 20:51 Dose: 25 mg Ondansetron HCl (Ondansetron Odt 4 Mg Tab.Rapdis) 4 mg TRANSLINGU Q6H PRN PRN Reason: nasuea/vomit Simethicone (Simethicone 80 Mg Tab.Chew) 80 mg PO QIDWMHS PRN PRN Reason: indigestion Trazodone HCl (Trazodone Hcl 50 Mg Tablet) 50 mg PO BEDTIME MRX1 PRN PRN Reason: Insomnia Last Admin: 11/23/22 18:58 Dose: 50 mg Allergies Allergies Allergy/AdvReac Type Severity Reaction Status Date / Time propofol Allergy Unknown Verified 11/18/22 12:22 warfarin Allergy Unknown Verified 11/18/22 12:22 Assessment & Plan Assessment & Plan (1) Schizoaffective disorder, bipolar type: Status: Acute Code(s): F25.0 - Schizoaffective disorder, bipolar type Plan Patient is a 56-year-old male on Section 12B with history of psychotic illness, likely schizoaffective disorder who presents after being picked up by police for disorganized behavior, found in a school parking lot unsure of where he was. Patient is calm, cooperative and polite though prone to being guarded and suspicious. He is somewhat of a limited historian due to some disorganized thought process. Patient reports that he used to be on risperidone up to 9 mg; it is not sure how long ago he was on this medication but he seems to say he tapered himself off of at some point concerned about the possible continuous churn buttermaker side effects. Recently he was admitted to psychiatric hospital at [facility] in [place] for 2 weeks where he was started on Zyprexa which he says he has been taking regularly however he is concerned about this medication and has some paranoid delusions about the reasons it was started and the 1st place. Throughout discussion patient will intermittently make references to being followed, being persecuted by people or organizations, being poisoned, etc.; during interview several pigeons flew to the window and patient stopped to say that the bird was a Drone. He denies hearing actual voices but endorses getting electric sensations, radio waves, vibrations. He also made some references to being concerned about being on the unit too long and missing out on being in a movie with Woody Grajeda and Tree Mclaughlin. Patient reports that he has not gotten much sleep this past week; he says he has been on lithium in the past for ricky but stopped it saying it caused excessive urination and hyponatremia. Patient has insight to know that medications help him and was interested in clozapine, despite the need for weekly blood draws, given the relatively lowered risk of dystonia and tardive dyskinesia. Patient denies any SI or HI. PLAN Section 12 B; wants treatment and may be amenable to signing in Q 15 minute checks Increase Depakote to 1000 mg q.h.s. since typical level subtherapeutic and patient remains manic Continue Zyprexa 20 mg g q.h.s. for now Patient interested in clozapine; will strongly consider however lack of permanent residence makes weekly blood draws a barrier Will seek Collateral 11/21/22 Continue Olanzapine Encourage collateral contact consent 11/22/22 Increase Olanzapine to 30 mg HS Depakote ER 500 mg HS 11/23/22 Continue current regime Diagnostics next week-Valproate level, CBC Continue to work on consents for medical collateral 11/24/2022 Continue current regimen Will get Depakote level tomorrow since he will have reached steady state by than Patient remains manic and with paranoid delusions Depakote level subtherapeutic and patient agrees to increasing Depakote to 1000 mg 11/27/22 Continue current regime Hospitalist consult for mgt of thoracic aortic aneurysm Atenolol re-started at 25 mg daily-pt was taking this when in pt in [place] 10/20-11/10. 11/29/22 Valproate Level CBCD 11/30/22 Continue current regime 12/01: Continue current plan. 12/02: Increase Depakote to 1,500 mg HS. Level was 52. 12/04/22 Continue current plan of care. Patient educated on: medication risk/benefits and therapeutic strategies Informed Consent: understands and further education needed Reason for continued inpatient stay Substantial Risk for: rapid decompensation Time Spent With Patient Time: Total time managing care of this patient today ____ minutes.
[2022-12-04] MEDS: Divalproex Sodium ER 500 MG TAB.ER.24H 1500 MG PO (21:29)
[2022-12-04] MEDS: Cyclobenzaprine HCl 5 MG TABLET PO (21:29)
[2022-12-04] MEDS: OLANZapine 5 MG TABLET PO (21:30)
[2022-12-04] MEDS: OLANZapine 10 MG TABLET 20 MG PO (21:30)
[2022-12-04] MEDS: Melatonin 3 MG TABLET PO (21:30)
[2022-12-05 08:05] VITALS: BP 132/88; PULSE 88; RESP 16; TEMP 36.4; O2SAT 97
[2022-12-05] MEDS: atenoloL 25 MG TABLET PO (08:07)
[2022-12-05] MEDS: Loratadine 10 MG TABLET PO (08:07)
[2022-12-05] MEDS: Cyclobenzaprine HCl 5 MG TABLET PO (11:25)
--- NOTE | 2022-12-05 16:52 | HO.PSYCHPN ---
Subjective Subjective Date of Service: 12/05/22 Reason For Visit: disorganized, psychosis Subjective Notes: Section 7 Healthcare Proxy: No Guardianship: No Medical Problems Affecting Mental Status: No Interim History: Discussed history of medications used. Reports Risperdal was helpful, but developed TD in toes. Discussed some of the barriers he struggles with to find housing and services. He would like to be closer to his son in [place] and enjoy family activities with him. Team is talking with his son and pt believes he will assist him in preparation for discharge. Reports sleep is improving, he is attending groups and I feel better able to listen . Medication Compliance: Yes Side effects from medications: No Attending Groups: Yes Review of Systems Acute medical concerns: No Medical Review of Systems: unchanged Mental Status Exam Mental Status Exam Patient Appearance: Appropriate Patient Orientation: Person, Place, Time and Situation Level of Consciousness: Alert Patient Behavior: Appropriate, Talkative, Cooperative and Good Eye Contact Mood Description: Flat Affect Description: Flat Patient Cognition Impaired: No Ability to Follow Directions: Good Speech Pattern: Spontaneous Speech Memory Description: Remote Impaired Hallucinations: None Delusions: Present Perceptual Disturbances: Derealization Thought Process: Illogical, Distracted and Confusion Thought Content: positive for Flight of Ideas, positive for Racing, positive for Circumstantial, positive for Perseveration, positive for Tangential, positive for Suicidal Ideation (denies) and positive for Homicidal Ideation (denies) Depressive Symptoms: Difficulty Concentrating Judgement: Fair Diagnostics Vital Signs (24Hr): Vital Signs - 24 hr 12/05/22 08:05 Temperature 97.6 F Pulse Rate 88 Respiratory Rate 16 Blood Pressure 132/88 Pulse Oximetry 97 Oxygen Delivery Method Room Air BMI result Body Mass Index 32.3 Labs 11/30/22 07:51 11/18/22 13:23 Imaging Radiology Impressions: ITS Impressions Chest X-Ray 11/18/22 14:30 IMPRESSION: Minimal blunting of the left costophrenic angle could represent pleural scarring or very small left pleural effusion. Mild bibasilar atelectasis/scarring. Medications Medications Current Medications Acetaminophen (Acetaminophen 325 Mg Tablet) 650 mg PO Q6H PRN PRN Reason: Headache/Pain Mild Scale (1-3) Last Admin: 11/28/22 05:21 Dose: 650 mg Al Hydroxide/Mg Hydroxide (Magnesium Hydrox/Alum Hydrox 30 Ml Oral.Susp) 30 ml PO Q6H PRN PRN Reason: Heartburn/Nausea Albuterol Sulfate (Albuterol Sulfate 90 Mcg 8 Gm Inhaler) 2 puff INHALE Q4H PRN PRN Reason: Shortness Of Breath Or Wheezing Last Admin: 11/30/22 11:03 Dose: 2 puff Atenolol (Atenolol 25 Mg Tablet) 25 mg PO DAILY [facility]; Protocol Last Admin: 12/05/22 08:07 Dose: 25 mg Benzocaine (Throat Lozenge, Medicated Lozenge) 1 lozenge MUCOUS MEM Q2H PRN PRN Reason: Sore Throat Last Admin: 11/29/22 19:49 Dose: 1 lozenge Cyclobenzaprine HCl (Cyclobenzaprine Hcl 5 Mg Tablet) 5 mg PO TID PRN PRN Reason: back pain Last Admin: 12/05/22 11:25 Dose: 5 mg Divalproex Sodium (Divalproex Sodium Er 500 Mg Tab.Er.24h) 1,500 mg PO BEDTIME [facility] Last Admin: 12/04/22 21:29 Dose: 1,500 mg Hydroxyzine HCl (Hydroxyzine Hcl 25 Mg Tablet) 25 mg PO Q6H PRN PRN Reason: Anxiety Ibuprofen (Ibuprofen 400 Mg Tablet) 400 mg PO Q8H PRN PRN Reason: Pain, Mild (Pain Scale 1-3) Last Admin: 12/04/22 10:53 Dose: 400 mg Loratadine (Loratadine 10 Mg Tablet) 10 mg PO DAILY [facility] Last Admin: 12/05/22 08:07 Dose: 10 mg Magnesium Hydroxide (Milk Of Magnesia 30 Ml Oral.Susp) 30 ml PO DAILY PRN PRN Reason: Constipation Melatonin (Melatonin 3 Mg Tablet) 3 mg PO BEDTIME PRN PRN Reason: Insomnia Last Admin: 12/04/22 21:30 Dose: 3 mg Nicotine Polacrilex (Nicotine Polacrilex 2 Mg Gum) 4 mg BUCCAL Q2H PRN PRN Reason: Nicotine Cravings Olanzapine (Olanzapine 5 Mg Tablet) 5 mg PO TID PRN PRN Reason: agitation Last Admin: 12/04/22 21:30 Dose: 5 mg Olanzapine (Olanzapine 10 Mg Tablet) 20 mg PO BEDTIME [facility] Last Admin: 12/04/22 21:30 Dose: 20 mg Ondansetron HCl (Ondansetron Odt 4 Mg Tab.Rapdis) 4 mg TRANSLINGU Q6H PRN PRN Reason: nasuea/vomit Simethicone (Simethicone 80 Mg Tab.Chew) 80 mg PO QIDWMHS PRN PRN Reason: indigestion Trazodone HCl (Trazodone Hcl 50 Mg Tablet) 50 mg PO BEDTIME MRX1 PRN PRN Reason: Insomnia Last Admin: 11/23/22 18:58 Dose: 50 mg Allergies Allergies Allergy/AdvReac Type Severity Reaction Status Date / Time propofol Allergy Unknown Verified 11/18/22 12:22 warfarin Allergy Unknown Verified 11/18/22 12:22 Assessment & Plan Assessment & Plan (1) Schizoaffective disorder, bipolar type: Status: Acute Code(s): F25.0 - Schizoaffective disorder, bipolar type Plan Patient is a 56-year-old male on Section 12B with history of psychotic illness, likely schizoaffective disorder who presents after being picked up by police for disorganized behavior, found in a school parking lot unsure of where he was. Patient is calm, cooperative and polite though prone to being guarded and suspicious. He is somewhat of a limited historian due to some disorganized thought process. Patient reports that he used to be on risperidone up to 9 mg; it is not sure how long ago he was on this medication but he seems to say he tapered himself off of at some point concerned about the possible intermodal customer service side effects. Recently he was admitted to psychiatric hospital at [facility] in [place] for 2 weeks where he was started on Zyprexa which he says he has been taking regularly however he is concerned about this medication and has some paranoid delusions about the reasons it was started and the 1st place. Throughout discussion patient will intermittently make references to being followed, being persecuted by people or organizations, being poisoned, etc.; during interview several pigeons flew to the window and patient stopped to say that the bird was a Drone. He denies hearing actual voices but endorses getting electric sensations, radio waves, vibrations. He also made some references to being concerned about being on the unit too long and missing out on being in a movie with Woody Grajeda and Tree Mclaughlin. Patient reports that he has not gotten much sleep this past week; he says he has been on lithium in the past for ricky but stopped it saying it caused excessive urination and hyponatremia. Patient has insight to know that medications help him and was interested in clozapine, despite the need for weekly blood draws, given the relatively lowered risk of dystonia and tardive dyskinesia. Patient denies any SI or HI. PLAN Section 12 B; wants treatment and may be amenable to signing in Q 15 minute checks Increase Depakote to 1000 mg q.h.s. since typical level subtherapeutic and patient remains manic Continue Zyprexa 20 mg g q.h.s. for now Patient interested in clozapine; will strongly consider however lack of permanent residence makes weekly blood draws a barrier Will seek Collateral 11/21/22 Continue Olanzapine Encourage collateral contact consent 11/22/22 Increase Olanzapine to 30 mg HS Depakote ER 500 mg HS 11/23/22 Continue current regime Diagnostics next week-Valproate level, CBC Continue to work on consents for medical collateral 11/24/2022 Continue current regimen Will get Depakote level tomorrow since he will have reached steady state by than Patient remains manic and with paranoid delusions Depakote level subtherapeutic and patient agrees to increasing Depakote to 1000 mg 11/27/22 Continue current regime Hospitalist consult for mgt of thoracic aortic aneurysm Atenolol re-started at 25 mg daily-pt was taking this when in pt in [place] 10/20-11/10. 11/29/22 Valproate Level CBCD 11/30/22 Continue current regime 12/01: Continue current plan. 12/02: Increase Depakote to 1,500 mg HS. Level was 52. 12/03/22: Decrease Olanzapine to 25 mg HS Simethicone prn per pt request Flexeril 5 mg tid prn per pt request 12/05/22: Continue current regime and plan. Discharge planning with pt Patient educated on: therapeutic strategies Informed Consent: further education needed Reason for continued inpatient stay Substantial Risk for: rapid decompensation Time Spent With Patient Time: Total time managing care of this patient today ____ minutes.
[2022-12-05] MEDS: Melatonin 3 MG TABLET PO (21:03)
[2022-12-05] MEDS: Divalproex Sodium ER 500 MG TAB.ER.24H 1500 MG PO (21:03)
[2022-12-05] MEDS: OLANZapine 10 MG TABLET 20 MG PO (21:03)
[2022-12-05 22:30] VITALS: BP 133/76; PULSE 84; TEMP 35.9; O2SAT 97
[2022-12-05] MEDS: Acetaminophen 325 MG TABLET 650 MG PO (22:30)
[2022-12-06 07:00] VITALS: BMI 33.1
[2022-12-06 08:00] VITALS: BP 164/91; PULSE 80; RESP 16; TEMP 36.2; O2SAT 97
[2022-12-06] MEDS: atenoloL 25 MG TABLET PO (08:22)
[2022-12-06] MEDS: Loratadine 10 MG TABLET PO (08:22)
[2022-12-06] MEDS: Ibuprofen 400 MG TABLET PO (09:51)
[2022-12-06 16:27] VITALS: BP 124/68; PULSE 70; RESP 16; TEMP 36.5; O2SAT 96
--- NOTE | 2022-12-06 17:23 | P.PNPSI_ITS ---
Subjective Subjective Date of Service: 12/06/22 Reason For Visit: disorganized, psychosis Subjective Notes: Section 7 Healthcare Proxy: No Guardianship: No Medical Problems Affecting Mental Status: No Interim History: Team reports sx of loud snoring, ?KLAUS. Discussed sleep study with pt after discharge, he will consider. Reports sleep continues to improve, he is feeling more rested. Son visited today. 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 Medication Compliance: Yes Side effects from medications: No Attending Groups: Yes Review of Systems Acute medical concerns: No Medical Review of Systems: unchanged Mental Status Exam Mental Status Exam Patient Appearance: Appropriate Patient Orientation: Person, Place, Time and Situation Level of Consciousness: Alert Patient Behavior: Appropriate, Talkative, Cooperative and Good Eye Contact Mood Description: Flat Affect Description: Flat Patient Cognition Impaired: No Ability to Follow Directions: Good Speech Pattern: Spontaneous Speech Memory Description: Remote Impaired Hallucinations: None Delusions: Present Perceptual Disturbances: Derealization Thought Process: Illogical, Distracted and Confusion Thought Content: positive for Flight of Ideas, positive for Racing, positive for Circumstantial, positive for Perseveration, positive for Tangential, positive f or Suicidal Ideation (denies) and positive for Homicidal Ideation (denies) Depressive Symptoms: Difficulty Concentrating Judgement: Fair Diagnostics Vital Signs (24Hr): Vital Signs - 24 hr 12/05/22 22:30 12/06/22 08:00 12/06/22 16:27 Temperature 96.6 F L 97.2 F 97.7 F Pulse Rate 84 80 70 Respiratory Rate 16 16 Blood Pressure 133/76 164/91 H 124/68 Pulse Oximetry 97 97 96 Oxygen Delivery Method Room Air Room Air Room Air BMI result Body Mass Index 33.1 Labs 11/30/22 07:51 11/18/22 13:23 Imaging Radiology Impressions: ITS Impressions Chest X-Ray 11/18/22 14:30 IMPRESSION: Minimal blunting of the left costophrenic angle could represent pleural scarring or very small left pleural effusion. Mild bibasilar atelectasis/scarring. Medications Medications Current Medications Acetaminophen (Acetaminophen 325 Mg Tablet) 650 mg PO Q6H PRN PRN Reason: Headache/Pain Mild Scale (1-3) Last Admin: 12/05/22 22:30 Dose: 650 mg Al Hydroxide/Mg Hydroxide (Magnesium Hydrox/Alum Hydrox 30 Ml Oral.Susp) 30 ml PO Q6H PRN PRN Reason: Heartburn/Nausea Albuterol Sulfate (Albuterol Sulfate 90 Mcg 8 Gm Inhaler) 2 puff INHALE Q4H PRN PRN Reason: Shortness Of Breath Or Wheezing Last Admin: 11/30/22 11:03 Dose: 2 puff Atenolol (Atenolol 25 Mg Tablet) 25 mg PO DAILY [facility]; Protocol Last Admin: 12/06/22 08:22 Dose: 25 mg Benzocaine (Throat Lozenge, Medicated Lozenge) 1 lozenge MUCOUS MEM Q2H PRN PRN Reason: Sore Throat Last Admin: 11/29/22 19:49 Dose: 1 lozenge Cyclobenzaprine HCl (Cyclobenzaprine Hcl 5 Mg Tablet) 5 mg PO TID PRN PRN Reason: back pain Last Admin: 12/05/22 11:25 Dose: 5 mg Divalproex Sodium (Divalproex Sodium Er 500 Mg Tab.Er.24h) 1,500 mg PO BEDTIME LIANA Last Admin: 12/05/22 21:03 Dose: 1,500 mg Hydroxyzine HCl (Hydroxyzine Hcl 25 Mg Tablet) 25 mg PO Q6H PRN PRN Reason: Anxiety Ibuprofen (Ibuprofen 400 Mg Tablet) 400 mg PO Q8H PRN PRN Reason: Pain, Mild (Pain Scale 1-3) Last Admin: 12/06/22 09:51 Dose: 400 mg Loratadine (Loratadine 10 Mg Tablet) 10 mg PO DAILY [facility] Last Admin: 12/06/22 08:22 Dose: 10 mg Magnesium Hydroxide (Milk Of Magnesia 30 Ml Oral.Susp) 30 ml PO DAILY PRN PRN Reason: Constipation Melatonin (Melatonin 3 Mg Tablet) 3 mg PO BEDTIME PRN PRN Reason: Insomnia Last Admin: 12/05/22 21:03 Dose: 3 mg Nicotine Polacrilex (Nicotine Polacrilex 2 Mg Gum) 4 mg BUCCAL Q2H PRN PRN Reason: Nicotine Cravings Olanzapine (Olanzapine 5 Mg Tablet) 5 mg PO TID PRN PRN Reason: agitation Last Admin: 12/04/22 21:30 Dose: 5 mg Olanzapine (Olanzapine 10 Mg Tablet) 20 mg PO BEDTIME LIANA Last Admin: 12/05/22 21:03 Dose: 20 mg Ondansetron HCl (Ondansetron Odt 4 Mg Tab.Rapdis) 4 mg TRANSLINGU Q6H PRN PRN Reason: nasuea/vomit Simethicone (Simethicone 80 Mg Tab.Chew) 80 mg PO QIDWMHS PRN PRN Reason: indigestion Trazodone HCl (Trazodone Hcl 50 Mg Tablet) 50 mg PO BEDTIME MRX1 PRN PRN Reason: Insomnia Last Admin: 11/23/22 18:58 Dose: 50 mg Allergies Allergies Allergy/AdvReac Type Severity Reaction Status Date / Time propofol Allergy Unknown Verified 11/18/22 12:22 warfarin Allergy Unknown Verified 11/18/22 12:22 Assessment & Plan Assessment & Plan (1) Schizoaffective disorder, bipolar type: Status: Acute Code(s): F25.0 - Schizoaffective disorder, bipolar type Plan Patient is a 56-year-old male on Section 12B with history of psychotic illness, likely schizoaffective disorder who presents after being picked up by police for disorganized behavior, found in a school parking lot unsure of where he was. Alberto paulina is calm, cooperative and polite though prone to being guarded and suspicious. He is somewhat of a limited historian due to some disorganized thought process. 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 Recently he was admitted to psychiatric hospital at [facility] in [place] for 2 weeks where he was started on Zyprexa which he says he has been taking regularly however he is concerned about this medication and has some paranoid delusions about the reasons it was started and the 1st place. Throughout discu ssion patient will intermittently make references to being followed, being persecuted by people or organizations, being poisoned, etc.; during interview several pigeons flew to the window and patient stopped to say that the bird was a Drone. He denies hearing actual voices but endorses getting electric sensations, radio waves, vibrations. He also made some references to being concerned about being on the unit too long and missing out on being in a movie with Woody Grajeda and Tree Mclaughlin. Patient reports that he has not gotten much sleep this past week; he says he has been on lithium in the past for ricky but stopped it saying it caused excessive urination and hyponatremia. Patient has in sight to know that medications help him and was interested in clozapine, despite the need for weekly blood draws, given the relatively lowered risk of dystonia and tardive dyskinesia. Patient denies any SI or HI. PLAN Section 12 B; wants treatment and may be amenable to signing in Q 15 minute checks Increase Depakote to 1000 mg q.h.s. since typical level subtherapeutic and patient remains manic Continue Zyprexa 20 mg g q.h.s. for now Patient interested in clozapine; will strongly consider however lack of permanent residence makes weekly blood draws a barrier Will seek Collateral 11/21/22 Continue Olanzapine Encourage collateral contact consent 11/22/22 Increase Olanzapine to 30 mg HS Depakote ER 500 mg HS 11/23/22 Continue current regime Diagnostics next week-Valproate level, CBC Continue to work on consents for medical collateral 11/24/2022 Continue current regimen Will get Depakote level tomorrow since he will have reached steady state by than Patient remains manic and with paranoid delusions Depakote level subtherapeutic and patient agrees to increasing Depakote to 1000 mg 11/27/22 Continue current regime Hospitalist consult for mgt of thoracic aortic aneurysm Atenolol re-started at 25 mg daily-pt was taking this when in pt in [place] 10/20-11/10. 11/29/22 Valproate Level CBCD 11/30/22 Continue current regime 12/01: Continue current plan. 12/02: Increase Depakote to 1,500 mg HS. Level was 52. 12/03/22: Decrease Olanzapine to 25 mg HS Simethicone prn per pt request Flexeril 5 mg tid prn per pt request 12/06/22: Sleep study appt after discharge, pt to consider. Patient educated on: therapeutic strategies Informed Consent: further education needed Reason for continued inpatient stay Substantial Risk for: rapid decompensation Time Spent With Patient Time: Total time managing care of this patient today ____ minutes.
--- NOTE | 2022-12-06 18:02 | PC.NURSE ---
Pt's keys were sent home with Pt's son Leroy with Pts permission.
[2022-12-06] MEDS: OLANZapine 10 MG TABLET 20 MG PO (20:47)
[2022-12-06] MEDS: Divalproex Sodium ER 500 MG TAB.ER.24H 1500 MG PO (20:47)
[2022-12-06] MEDS: Melatonin 3 MG TABLET PO (21:41)
[2022-12-07 08:00] VITALS: BP 132/90; PULSE 81; RESP 16; TEMP 36; O2SAT 95
[2022-12-07] MEDS: Loratadine 10 MG TABLET PO (08:20)
[2022-12-07] MEDS: atenoloL 25 MG TABLET PO (08:20)
--- NOTE | 2022-12-07 13:34 | HO.PSYCHPN ---
Subjective Subjective Date of Service: 12/07/22 Reason For Visit: disorganized, psychosis Subjective Notes: Section 7 Healthcare Proxy: No Guardianship: No Medical Problems Affecting Mental Status: No Interim History: Napping on and off today. Visable in milieu. Lability is decreased. Pt continues with tangential content but is improving. Medication Compliance: Yes Side effects from medications: No Attending Groups: Yes Review of Systems Acute medical concerns: No Medical Review of Systems: unchanged Mental Status Exam Mental Status Exam Patient Appearance: Appropriate Patient Orientation: Person, Place, Time and Situation Level of Consciousness: Alert Patient Behavior: Appropriate, Talkative, Cooperative and Good Eye Contact Mood Description: Flat Affect Description: Flat Patient Cognition Impaired: No Ability to Follow Directions: Good Speech Pattern: Spontaneous Speech Memory Description: Remote Impaired Hallucinations: None Delusions: Present Perceptual Disturbances: Derealization Thought Process: Illogical, Distracted and Confusion Thought Content: positive for Flight of Ideas, positive for Racing, positive for Circumstantial, positive for Perseveration, positive for Tangential, positive for Suicidal Ideation (denies) and positive for Homicidal Ideation (denies) Depressive Symptoms: Difficulty Concentrating Judgement: Fair Diagnostics Vital Signs (24Hr): Vital Signs - 24 hr 12/06/22 16:27 12/07/22 08:00 Temperature 97.7 F 96.8 F Pulse Rate 70 81 Respiratory Rate 16 16 Blood Pressure 124/68 132/90 H Pulse Oximetry 96 95 Oxygen Delivery Method Room Air Room Air BMI result Body Mass Index 33.1 Labs 11/30/22 07:51 11/18/22 13:23 Imaging Radiology Impressions: ITS Impressions Chest X-Ray 11/18/22 14:30 IMPRESSION: Minimal blunting of the left costophrenic angle could represent pleural scarring or very small left pleural effusion. Mild bibasilar atelectasis/scarring. Medications Medications Current Medications Acetaminophen (Acetaminophen 325 Mg Tablet) 650 mg PO Q6H PRN PRN Reason: Headache/Pain Mild Scale (1-3) Last Admin: 12/05/22 22:30 Dose: 650 mg Al Hydroxide/Mg Hydroxide (Magnesium Hydrox/Alum Hydrox 30 Ml Oral.Susp) 30 ml PO Q6H PRN PRN Reason: Heartburn/Nausea Albuterol Sulfate (Albuterol Sulfate 90 Mcg 8 Gm Inhaler) 2 puff INHALE Q4H PRN PRN Reason: Shortness Of Breath Or Wheezing Last Admin: 11/30/22 11:03 Dose: 2 puff Atenolol (Atenolol 25 Mg Tablet) 25 mg PO DAILY [facility]; Protocol Last Admin: 12/07/22 08:20 Dose: 25 mg Benzocaine (Throat Lozenge, Medicated Lozenge) 1 lozenge MUCOUS MEM Q2H PRN PRN Reason: Sore Throat Last Admin: 11/29/22 19:49 Dose: 1 lozenge Cyclobenzaprine HCl (Cyclobenzaprine Hcl 5 Mg Tablet) 5 mg PO TID PRN PRN Reason: back pain Last Admin: 12/05/22 11:25 Dose: 5 mg Divalproex Sodium (Divalproex Sodium Er 500 Mg Tab.Er.24h) 1,500 mg PO BEDTIME LIANA Last Admin: 12/06/22 20:47 Dose: 1,500 mg Hydroxyzine HCl (Hydroxyzine Hcl 25 Mg Tablet) 25 mg PO Q6H PRN PRN Reason: Anxiety Ibuprofen (Ibuprofen 400 Mg Tablet) 400 mg PO Q8H PRN PRN Reason: Pain, Mild (Pain Scale 1-3) Last Admin: 12/06/22 09:51 Dose: 400 mg Loratadine (Loratadine 10 Mg Tablet) 10 mg PO DAILY [facility] Last Admin: 12/07/22 08:20 Dose: 10 mg Magnesium Hydroxide (Milk Of Magnesia 30 Ml Oral.Susp) 30 ml PO DAILY PRN PRN Reason: Constipation Melatonin (Melatonin 3 Mg Tablet) 3 mg PO BEDTIME PRN PRN Reason: Insomnia Last Admin: 12/06/22 21:41 Dose: 3 mg Nicotine Polacrilex (Nicotine Polacrilex 2 Mg Gum) 4 mg BUCCAL Q2H PRN PRN Reason: Nicotine Cravings Olanzapine (Olanzapine 5 Mg Tablet) 5 mg PO TID PRN PRN Reason: agitation Last Admin: 12/04/22 21:30 Dose: 5 mg Olanzapine (Olanzapine 10 Mg Tablet) 20 mg PO BEDTIME [facility] Last Admin: 12/06/22 20:47 Dose: 20 mg Ondansetron HCl (Ondansetron Odt 4 Mg Tab.Rapdis) 4 mg TRANSLINGU Q6H PRN PRN Reason: nasuea/vomit Simethicone (Simethicone 80 Mg Tab.Chew) 80 mg PO QIDWMHS PRN PRN Reason: indigestion Trazodone HCl (Trazodone Hcl 50 Mg Tablet) 50 mg PO BEDTIME MRX1 PRN PRN Reason: Insomnia Last Admin: 11/23/22 18:58 Dose: 50 mg Allergies Allergies Allergy/AdvReac Type Severity Reaction Status Date / Time propofol Allergy Unknown Verified 11/18/22 12:22 warfarin Allergy Unknown Verified 11/18/22 12:22 Assessment & Plan Assessment & Plan (1) Schizoaffective disorder, bipolar type: Status: Acute Code(s): F25.0 - Schizoaffective disorder, bipolar type Plan Patient is a 56-year-old male on Section 12B with history of psychotic illness, likely schizoaffective disorder who presents after being picked up by police for disorganized behavior, found in a school parking lot unsure of where he was. Patient is calm, cooperative and polite though prone to being guarded and suspicious. He is somewhat of a limited historian due to some disorganized thought process. 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 Recently he was admitted to psychiatric hospital at [facility] in [place] for 2 weeks where he was started on Zyprexa which he says he has been taking regularly however he is concerned about this medication and has some paranoid delusions about the reasons it was started and the 1st place. Throughout discussion patient will intermittently make references to being followed, being persecuted by people or organizations, being poisoned, etc.; during interview several pigeons flew to the window and patient stopped to say that the bird was a Drone. He denies hearing actual voices but endorses getting electric sensations, radio waves, vibrations. He also made some references to being concerned about being on the unit too long and missing out on being in a movie with Woody Grajeda and Tree Mclaughlin. Patient reports that he has not gotten much sleep this past week; he says he has been on lithium in the past for ricky but stopped it saying it caused excessive urination and hyponatremia. Patient has insight to know that medications help him and was interested in clozapine, despite the need for weekly blood draws, given the relatively lowered risk of dystonia and tardive dyskinesia. Patient denies any SI or HI. PLAN Section 12 B; wants treatment and may be amenable to signing in Q 15 minute checks Increase Depakote to 1000 mg q.h.s. since typical level subtherapeutic and patient remains manic Continue Zyprexa 20 mg g q.h.s. for now Patient interested in clozapine; will strongly consider however lack of permanent residence makes weekly blood draws a barrier Will seek Collateral 11/21/22 Continue Olanzapine Encourage collateral contact consent 11/22/22 Increase Olanzapine to 30 mg HS Depakote ER 500 mg HS 11/23/22 Continue current regime Diagnostics next week-Valproate level, CBC Continue to work on consents for medical collateral 11/24/2022 Continue current regimen Will get Depakote level tomorrow since he will have reached steady state by than Patient remains manic and with paranoid delusions Depakote level subtherapeutic and patient agrees to increasing Depakote to 1000 mg 11/27/22 Continue current regime Hospitalist consult for mgt of thoracic aortic aneurysm Atenolol re-started at 25 mg daily-pt was taking this when in pt in [place] 10/20-11/10. 11/29/22 Valproate Level CBCD 11/30/22 Continue current regime 12/01: Continue current plan. 12/02: Increase Depakote to 1,500 mg HS. Level was 52. 12/03/22: Decrease Olanzapine to 25 mg HS Simethicone prn per pt request Flexeril 5 mg tid prn per pt request 12/06/22: Sleep study appt after discharge, pt to consider. 12/07/22: Valproate Level and CBC on 12/08/22. Informed Consent: understands and further education needed Reason for continued inpatient stay Substantial Risk for: rapid decompensation and med/psych decompensation Time Spent With Patient Time: Total time managing care of this patient today ____ minutes.
[2022-12-07 18:00] VITALS: BP 148/85; PULSE 79; RESP 18; TEMP 37.1; O2SAT 96
[2022-12-07] MEDS: Divalproex Sodium ER 500 MG TAB.ER.24H 1500 MG PO (20:39)
[2022-12-07] MEDS: OLANZapine 10 MG TABLET 20 MG PO (20:39)
[2022-12-08 07:40] LABS: MANUAL DIFF FLAG NO
[2022-12-08 07:42] LABS: Basophils Absolute Auto 0.1 X10*3/uL (0.0-0.2); Basophils Percent Auto 0.8 % (0-2); Eosinophils Absolute Auto 0.3 X10*3/uL (0.0-0.4); Eosinophils Percent Auto 4.9 % (0-4); Hematocrit 44.4 % (42.0-52.0); Hemoglobin 14.8 g/dl (14.0-18.0); Imm Gran Abs Auto 0.06 X10*3/uL (0.00-0.03); Lymphocytes Absolute Auto 1.8 X10*3/uL (1.2-4.9); Mean Corpuscular HGB Conc 33.3 g/dl (31.0-36.0); Mean Corpuscular Hemoglobin 31.6 pg (27.0-33.0); Mean Corpuscular Volume 94.9 fL (80.0-98.0); Mean Platelet Volume 9.5 fL (9.4-12.4); Monocytes Absolute Auto 0.7 X10*3/uL (0.1-1.2); Monocytes Percent Auto 10.8 % (2-11); Neutrophils Absolute Auto 3.2 x10*3/uL (2.0-8.3); Neutrophils Percent Auto 52.5 % (45-73); Platelet Count 261 X10*3/uL (160-400); Red Blood Count 4.68 X10*6/uL (4.60-5.80); Red Cell Distribution Width 12.4 % (11.0-16.0); White Blood Count 6.1 X10*3/uL (4.8-10.8)
[2022-12-08 07:58] LABS: Valproate 77.1 mcg/mL (50.0-100.0)
[2022-12-08 08:00] VITALS: BP 127/93; PULSE 77; RESP 16; TEMP 36.5; O2SAT 97
[2022-12-08] MEDS: atenoloL 25 MG TABLET PO (08:00)
[2022-12-08] MEDS: Loratadine 10 MG TABLET PO (08:00)
[2022-12-08] MEDS: Ibuprofen 400 MG TABLET PO (14:09)
[2022-12-08 18:00] VITALS: BP 131/71; PULSE 83; RESP 20; TEMP 37; O2SAT 96
--- NOTE | 2022-12-08 18:25 | HO.PSYCHPN ---
Subjective Subjective Date of Service: 12/08/22 Reason For Visit: disorganized, psychosis Subjective Notes: Section 7 Interim History: Pt seen, reviewed with the team. Valproate level 77.1 Pt reports feeling well. Planning discharge. Reports sleep is really improving. Medication Compliance: Yes Side effects from medications: No Attending Groups: Yes Review of Systems Acute medical concerns: No Medical Review of Systems: unchanged Mental Status Exam Mental Status Exam Patient Appearance: Appropriate Patient Orientation: Person, Place, Time and Situation Level of Consciousness: Alert Patient Behavior: Appropriate, Talkative, Cooperative and Good Eye Contact Mood Description: Flat Affect Description: Flat Patient Cognition Impaired: No Ability to Follow Directions: Good Speech Pattern: Spontaneous Speech Memory Description: Remote Impaired Hallucinations: None Delusions: Present Perceptual Disturbances: Derealization Thought Process: Illogical, Distracted and Confusion Thought Content: positive for Flight of Ideas, positive for Racing, positive for Circumstantial, positive for Perseveration, positive for Tangential, positive for Suicidal Ideation (denies) and positive for Homicidal Ideation (denies) Depressive Symptoms: Difficulty Concentrating Judgement: Fair Diagnostics Vital Signs (24Hr): Vital Signs - 24 hr 12/08/22 08:00 Temperature 97.7 F Pulse Rate 77 Respiratory Rate 16 Blood Pressure 127/93 H Pulse Oximetry 97 Oxygen Delivery Method Room Air BMI result Body Mass Index 33.1 Labs 12/08/22 07:36 11/18/22 13:23 Labs: Laboratory Results - last 48 hr 12/08/22 12/08/22 07:36 07:36 WBC 6.1 RBC 4.68 Hgb 14.8 Hct 44.4 MCV 94.9 MCH 31.6 MCHC 33.3 RDW 12.4 Plt Count 261 MPV 9.5 Immature Gran % (Auto) 1.0 H Neut % (Auto) 52.5 Lymph % (Auto) 30.0 [place] % (Auto) 10.8 Eos % (Auto) 4.9 H Baso % (Auto) 0.8 Lymph # (Auto) 1.8 [place] # (Auto) 0.7 Eos # (Auto) 0.3 Baso # (Auto) 0.1 Abs Immat Gran (auto) 0.06 H Absolute Neuts (auto) 3.2 Absolute Nucleated RBC 0.000 Nucleated RBC % (auto) 0.0 Valproic Acid 77.1 Imaging Radiology Impressions: ITS Impressions Chest X-Ray 11/18/22 14:30 IMPRESSION: Minimal blunting of the left costophrenic angle could represent pleural scarring or very small left pleural effusion. Mild bibasilar atelectasis/scarring. Medications Medications Current Medications Acetaminophen (Acetaminophen 325 Mg Tablet) 650 mg PO Q6H PRN PRN Reason: Headache/Pain Mild Scale (1-3) Last Admin: 12/05/22 22:30 Dose: 650 mg Al Hydroxide/Mg Hydroxide (Magnesium Hydrox/Alum Hydrox 30 Ml Oral.Susp) 30 ml PO Q6H PRN PRN Reason: Heartburn/Nausea Albuterol Sulfate (Albuterol Sulfate 90 Mcg 8 Gm Inhaler) 2 puff INHALE Q4H PRN PRN Reason: Shortness Of Breath Or Wheezing Last Admin: 11/30/22 11:03 Dose: 2 puff Atenolol (Atenolol 25 Mg Tablet) 25 mg PO DAILY [facility]; Protocol Last Admin: 12/08/22 08:00 Dose: 25 mg Benzocaine (Throat Lozenge, Medicated Lozenge) 1 lozenge MUCOUS MEM Q2H PRN PRN Reason: Sore Throat Last Admin: 11/29/22 19:49 Dose: 1 lozenge Cyclobenzaprine HCl (Cyclobenzaprine Hcl 5 Mg Tablet) 5 mg PO TID PRN PRN Reason: back pain Last Admin: 12/05/22 11:25 Dose: 5 mg Divalproex Sodium (Divalproex Sodium Er 500 Mg Tab.Er.24h) 1,500 mg PO BEDTIME LIANA Last Admin: 12/07/22 20:39 Dose: 1,500 mg Hydroxyzine HCl (Hydroxyzine Hcl 25 Mg Tablet) 25 mg PO Q6H PRN PRN Reason: Anxiety Ibuprofen (Ibuprofen 400 Mg Tablet) 400 mg PO Q8H PRN PRN Reason: Pain, Mild (Pain Scale 1-3) Last Admin: 12/08/22 14:09 Dose: 400 mg Loratadine (Loratadine 10 Mg Tablet) 10 mg PO DAILY LIANA Last Admin: 12/08/22 08:00 Dose: 10 mg Magnesium Hydroxide (Milk Of Magnesia 30 Ml Oral.Susp) 30 ml PO DAILY PRN PRN Reason: Constipation Melatonin (Melatonin 3 Mg Tablet) 3 mg PO BEDTIME PRN PRN Reason: Insomnia Last Admin: 12/06/22 21:41 Dose: 3 mg Nicotine Polacrilex (Nicotine Polacrilex 2 Mg Gum) 4 mg BUCCAL Q2H PRN PRN Reason: Nicotine Cravings Olanzapine (Olanzapine 5 Mg Tablet) 5 mg PO TID PRN PRN Reason: agitation Last Admin: 12/04/22 21:30 Dose: 5 mg Olanzapine (Olanzapine 10 Mg Tablet) 20 mg PO BEDTIME LIANA Last Admin: 12/07/22 20:39 Dose: 20 mg Ondansetron HCl (Ondansetron Odt 4 Mg Tab.Rapdis) 4 mg TRANSLINGU Q6H PRN PRN Reason: nasuea/vomit Simethicone (Simethicone 80 Mg Tab.Chew) 80 mg PO QIDWMHS PRN PRN Reason: indigestion Trazodone HCl (Trazodone Hcl 50 Mg Tablet) 50 mg PO BEDTIME MRX1 PRN PRN Reason: Insomnia Last Admin: 11/23/22 18:58 Dose: 50 mg Allergies Allergies Allergy/AdvReac Type Severity Reaction Status Date / Time propofol Allergy Unknown Verified 11/18/22 12:22 warfarin Allergy Unknown Verified 11/18/22 12:22 Assessment & Plan Assessment & Plan (1) Schizoaffective disorder, bipolar type: Status: Acute Code(s): F25.0 - Schizoaffective disorder, bipolar type Plan Patient is a 56-year-old male on [place] 12[place] with history of psychotic illness, likely schizoaffective disorder who presents after being picked up by police for disorganized behavior, found in a school parking lot unsure of where he was. Patient is calm, cooperative and polite though prone to being guarded and suspicious. He is somewhat of a limited historian due to some disorganized thought process. 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 Recently he was admitted to psychiatric hospital at [facility] in [place] for 2 weeks where he was started on Zyprexa which he says he has been taking regularly however he is concerned about this medication and has some paranoid delusions about the reasons it was started and the 1st place. Throughout discussion patient will intermittently make references to being followed, being persecuted by people or organizations, being poisoned, etc.; during interview several pigeons flew to the window and patient stopped to say that the bird was a Drone. He denies hearing actual voices but endorses getting electric sensations, radio waves, vibrations. He also made some references to being concerned about being on the unit too long and missing out on being in a movie with Woody Grajeda and Tree Mclaughlin. Patient reports that he has not gotten much sleep this past week; he says he has been on lithium in the past for ricky but stopped it saying it caused excessive urination and hyponatremia. Patient has insight to know that medications help him and was interested in clozapine, despite the need for weekly blood draws, given the relatively lowered risk of dystonia and tardive dyskinesia. Patient denies any SI or HI. PLAN Section 12 B; wants treatment and may be amenable to signing in Q 15 minute checks Increase Depakote to 1000 mg q.h.s. since typical level subtherapeutic and patient remains manic Continue Zyprexa 20 mg g q.h.s. for now Patient interested in clozapine; will strongly consider however lack of permanent residence makes weekly blood draws a barrier Will seek Collateral 11/21/22 Continue Olanzapine Encourage collateral contact consent 11/22/22 Increase Olanzapine to 30 mg HS Depakote ER 500 mg HS 11/23/22 Continue current regime Diagnostics next week-Valproate level, CBC Continue to work on consents for medical collateral 11/24/2022 Continue current regimen Will get Depakote level tomorrow since he will have reached steady state by than /23 Patient remains manic and with paranoid delusions Depakote level subtherapeutic and patient agrees to increasing Depakote to 1000 mg 11/27/22 Continue current regime Hospitalist consult for mgt of thoracic aortic aneurysm Atenolol re-started at 25 mg daily-pt was taking this when in pt in [place] 10/20-11/10. 11/29/22 Valproate Level CBCD 11/30/22 Continue current regime 12/01: Continue current plan. 12/02: Increase Depakote to 1,500 mg HS. Level was 52. 12/03/22: Decrease Olanzapine to 25 mg HS Simethicone prn per pt request Flexeril 5 mg tid prn per pt request 12/06/22: Sleep study appt after discharge, pt to consider. 12/07/22: Valproate Level and CBC on 12/08/22. 12/08/22 Discharge planning Informed Consent: further education needed Reason for continued inpatient stay Substantial Risk for: rapid decompensation Time Spent With Patient Time: Total time managing care of this patient today ____ minutes.
[2022-12-08] MEDS: OLANZapine 10 MG TABLET 20 MG PO (21:36)
[2022-12-08] MEDS: Divalproex Sodium ER 500 MG TAB.ER.24H 1500 MG PO (21:36)
[2022-12-08] MEDS: Acetaminophen 325 MG TABLET 650 MG PO (21:37)
[2022-12-08] MEDS: Cyclobenzaprine HCl 5 MG TABLET PO (21:38)
[2022-12-08] MEDS: Melatonin 3 MG TABLET PO (21:38)
[2022-12-08] MEDS: traZODone HCL 50 MG TABLET PO (21:38)
--- NOTE | 2022-12-09 08:57 | HO.PSYCHPN ---
Subjective Subjective Date of Service: 12/09/22 Reason For Visit: disorganized, psychosis Subjective Notes: Section 7 Interim History: Pt seen, review with team. Continues to report improved sleep. Planning discharge, asks where he should live upon discharge, pt reports he will consult with his son. We discussed possibly this week if he has a place to go. Medication Compliance: Yes Side effects from medications: No Attending Groups: No Review of Systems Acute medical concerns: No Medical Review of Systems: unchanged Mental Status Exam Mental Status Exam Patient Appearance: Appropriate Patient Orientation: Person, Place, Time and Situation Level of Consciousness: Alert Patient Behavior: Appropriate, Talkative, Cooperative and Good Eye Contact Mood Description: Flat Affect Description: Flat Patient Cognition Impaired: No Ability to Follow Directions: Good Speech Pattern: Spontaneous Speech Memory Description: Remote Impaired Hallucinations: None Delusions: Present Perceptual Disturbances: Derealization Thought Process: Illogical, Distracted and Confusion Thought Content: positive for Flight of Ideas, positive for Racing, positive for Circumstantial, positive for Perseveration, positive for Tangential, positive for Suicidal Ideation (denies) and positive for Homicidal Ideation (denies) Depressive Symptoms: Difficulty Concentrating Judgement: Fair Diagnostics Vital Signs (24Hr): Vital Signs - 24 hr 12/08/22 18:00 Temperature 98.6 F Pulse Rate 83 Respiratory Rate 20 Blood Pressure 131/71 Pulse Oximetry 96 Oxygen Delivery Method Room Air BMI result Body Mass Index 33.1 Labs 12/08/22 07:36 11/18/22 13:23 Labs: Laboratory Results - last 48 hr 12/08/22 12/08/22 07:36 07:36 WBC 6.1 RBC 4.68 Hgb 14.8 Hct 44.4 MCV 94.9 MCH 31.6 MCHC 33.3 RDW 12.4 Plt Count 261 MPV 9.5 Immature Gran % (Auto) 1.0 H Neut % (Auto) 52.5 Lymph % (Auto) 30.0 [place] % (Auto) 10.8 Eos % (Auto) 4.9 H Baso % (Auto) 0.8 Lymph # (Auto) 1.8 [place] # (Auto) 0.7 Eos # (Auto) 0.3 Baso # (Auto) 0.1 Abs Immat Gran (auto) 0.06 H Absolute Neuts (auto) 3.2 Absolute Nucleated RBC 0.000 Nucleated RBC % (auto) 0.0 Valproic Acid 77.1 Imaging Radiology Impressions: ITS Impressions Chest X-Ray 11/18/22 14:30 IMPRESSION: Minimal blunting of the left costophrenic angle could represent pleural scarring or very small left pleural effusion. Mild bibasilar atelectasis/scarring. Medications Medications Current Medications Acetaminophen (Acetaminophen 325 Mg Tablet) 650 mg PO Q6H PRN PRN Reason: Headache/Pain Mild Scale (1-3) Last Admin: 12/08/22 21:37 Dose: 650 mg Al Hydroxide/Mg Hydroxide (Magnesium Hydrox/Alum Hydrox 30 Ml Oral.Susp) 30 ml PO Q6H PRN PRN Reason: Heartburn/Nausea Albuterol Sulfate (Albuterol Sulfate 90 Mcg 8 Gm Inhaler) 2 puff INHALE Q4H PRN PRN Reason: Shortness Of Breath Or Wheezing Last Admin: 11/30/22 11:03 Dose: 2 puff Atenolol (Atenolol 25 Mg Tablet) 25 mg PO DAILY [facility]; Protocol Last Admin: 12/08/22 08:00 Dose: 25 mg Benzocaine (Throat Lozenge, Medicated Lozenge) 1 lozenge MUCOUS MEM Q2H PRN PRN Reason: Sore Throat Last Admin: 11/29/22 19:49 Dose: 1 lozenge Cyclobenzaprine HCl (Cyclobenzaprine Hcl 5 Mg Tablet) 5 mg PO TID PRN PRN Reason: back pain Last Admin: 12/08/22 21:38 Dose: 5 mg Divalproex Sodium (Divalproex Sodium Er 500 Mg Tab.Er.24h) 1,500 mg PO BEDTIME [facility] Last Admin: 12/08/22 21:36 Dose: 1,500 mg Hydroxyzine HCl (Hydroxyzine Hcl 25 Mg Tablet) 25 mg PO Q6H PRN PRN Reason: Anxiety Ibuprofen (Ibuprofen 400 Mg Tablet) 400 mg PO Q8H PRN PRN Reason: Pain, Mild (Pain Scale 1-3) Last Admin: 12/08/22 14:09 Dose: 400 mg Loratadine (Loratadine 10 Mg Tablet) 10 mg PO DAILY [facility] Last Admin: 12/08/22 08:00 Dose: 10 mg Magnesium Hydroxide (Milk Of Magnesia 30 Ml Oral.Susp) 30 ml PO DAILY PRN PRN Reason: Constipation Melatonin (Melatonin 3 Mg Tablet) 3 mg PO BEDTIME PRN PRN Reason: Insomnia Last Admin: 12/08/22 21:38 Dose: 3 mg Nicotine Polacrilex (Nicotine Polacrilex 2 Mg Gum) 4 mg BUCCAL Q2H PRN PRN Reason: Nicotine Cravings Olanzapine (Olanzapine 5 Mg Tablet) 5 mg PO TID PRN PRN Reason: agitation Last Admin: 12/04/22 21:30 Dose: 5 mg Olanzapine (Olanzapine 10 Mg Tablet) 20 mg PO BEDTIME LIANA Last Admin: 12/08/22 21:36 Dose: 20 mg Ondansetron HCl (Ondansetron Odt 4 Mg Tab.Rapdis) 4 mg TRANSLINGU Q6H PRN PRN Reason: nasuea/vomit Simethicone (Simethicone 80 Mg Tab.Chew) 80 mg PO QIDWMHS PRN PRN Reason: indigestion Trazodone HCl (Trazodone Hcl 50 Mg Tablet) 50 mg PO BEDTIME MRX1 PRN PRN Reason: Insomnia Last Admin: 12/08/22 21:38 Dose: 50 mg Allergies Allergies Allergy/AdvReac Type Severity Reaction Status Date / Time propofol Allergy Unknown Verified 11/18/22 12:22 warfarin Allergy Unknown Verified 11/18/22 12:22 Assessment & Plan Assessment & Plan (1) Schizoaffective disorder, bipolar type: Status: Acute Code(s): F25.0 - Schizoaffective disorder, bipolar type Plan Patient is a 56-year-old male on [place] 12[place] with history of psychotic illness, likely schizoaffective disorder who presents after being picked up by police for disorganized behavior, found in a school parking lot unsure of where he was. Patient is calm, cooperative and polite though prone to being guarded and suspicious. He is somewhat of a limited historian due to some disorganized thought process. Patient reports that he used to be on risperidone up to 9 mg; it is not sure how long ago he was on this medication but he seems to say he tapered himself off of at some point concerned about the possible emt intermediate side effects. Recently he was admitted to psychiatric hospital at [facility] in [place] for 2 weeks where he was started on Zyprexa which he says he has been taking regularly however he is concerned about this medication and has some paranoid delusions about the reasons it was started and the 1st place. Throughout discussion patient will intermittently make references to being followed, being persecuted by people or organizations, being poisoned, etc.; during interview several pigeons flew to the window and patient stopped to say that the bird was a Drone. He denies hearing actual voices but endorses getting electric sensations, radio waves, vibrations. He also made some references to being concerned about being on the unit too long and missing out on being in a movie with Woody Grajeda and Tree Mclaughlin. Patient reports that he has not gotten much sleep this past week; he says he has been on lithium in the past for ricky but stopped it saying it caused excessive urination and hyponatremia. Patient has insight to know that medications help him and was interested in clozapine, despite the need for weekly blood draws, given the relatively lowered risk of dystonia and tardive dyskinesia. Patient denies any SI or HI. PLAN Section 12 B; wants treatment and may be amenable to signing in Q 15 minute checks Increase Depakote to 1000 mg q.h.s. since typical level subtherapeutic and patient remains manic Continue Zyprexa 20 mg g q.h.s. for now Patient interested in clozapine; will strongly consider however lack of permanent residence makes weekly blood draws a barrier Will seek Collateral 11/21/22 Continue Olanzapine Encourage collateral contact consent 11/22/22 Increase Olanzapine to 30 mg HS Depakote ER 500 mg HS 11/23/22 Continue current regime Diagnostics next week-Valproate level, CBC Continue to work on consents for medical collateral 11/24/2022 Continue current regimen Will get Depakote level tomorrow since he will have reached steady state by than Patient remains manic and with paranoid delusions Depakote level subtherapeutic and patient agrees to increasing Depakote to 1000 mg 11/27/22 Continue current regime Hospitalist consult for mgt of thoracic aortic aneurysm Atenolol re-started at 25 mg daily-pt was taking this when in pt in [place] 10/20-11/10. 11/29/22 Valproate Level CBCD 11/30/22 Continue current regime 12/01: Continue current plan. 12/02: Increase Depakote to 1,500 mg HS. Level was 52. 12/03/22: Decrease Olanzapine to 25 mg HS Simethicone prn per pt request Flexeril 5 mg tid prn per pt request 12/06/22: Sleep study appt after discharge, pt to consider. 12/07/22: Valproate Level and CBC on 12/08/22. 12/09/22: Discharge planning. Patient educated on: medication risk/benefits and therapeutic strategies Informed Consent: understands and further education needed Reason for continued inpatient stay Substantial Risk for: rapid decompensation Time Spent With Patient Time: Total time managing care of this patient today ____ minutes.
[2022-12-09 09:40] VITALS: BP 125/63; PULSE 83; RESP 14; TEMP 36.6; O2SAT 93
[2022-12-09] MEDS: atenoloL 25 MG TABLET PO (09:43)
[2022-12-09] MEDS: Loratadine 10 MG TABLET PO (09:43)
[2022-12-09] MEDS: Ibuprofen 400 MG TABLET PO (12:00)
[2022-12-09 18:15] VITALS: BP 136/70; PULSE 79; RESP 18; TEMP 36.8; O2SAT 95
[2022-12-09] MEDS: Divalproex Sodium ER 500 MG TAB.ER.24H 1500 MG PO (20:24)
[2022-12-09] MEDS: traZODone HCL 50 MG TABLET PO (20:24)
[2022-12-09] MEDS: Melatonin 3 MG TABLET PO (20:24)
[2022-12-09] MEDS: OLANZapine 10 MG TABLET 20 MG PO (20:24)
[2022-12-10] MEDS: atenoloL 25 MG TABLET PO (08:09)
[2022-12-10] MEDS: Loratadine 10 MG TABLET PO (08:09)
[2022-12-10 08:10] VITALS: BP 119/71; PULSE 85; RESP 18; TEMP 36.6; O2SAT 95
[2022-12-10] MEDS: Cyclobenzaprine HCl 5 MG TABLET PO (10:22)
--- NOTE | 2022-12-10 11:52 | HO.PSYCHPN ---
Subjective Subjective Date of Service: 12/10/22 Reason For Visit: disorganized, psychosis Subjective Notes: Section 7 Healthcare Proxy: No Guardianship: No Medical Problems Affecting Mental Status: No Interim History: Pt reports feeling well. Pleased with Depakote level. States his son has found him an apartment in the [facility] and he is considering accepting it. Planning to live in a motel until it is ready. Hoping for discharge this week. Mood is stable. Court scheduled for 12/13/22. Medication Compliance: Yes Side effects from medications: No Attending Groups: Yes Review of Systems Acute medical concerns: No Medical Review of Systems: unchanged Mental Status Exam Mental Status Exam Patient Appearance: Appropriate Patient Orientation: Person, Place, Time and Situation Level of Consciousness: Alert Patient Behavior: Appropriate, Talkative, Cooperative and Good Eye Contact Mood Description: Flat Affect Description: Flat Patient Cognition Impaired: No Ability to Follow Directions: Good Speech Pattern: Spontaneous Speech Memory Description: Remote Impaired Hallucinations: None Delusions: Present Perceptual Disturbances: Derealization Thought Process: Illogical, Distracted and Confusion Thought Content: positive for Flight of Ideas, positive for Racing, positive for Circumstantial, positive for Perseveration, positive for Tangential, positive for Suicidal Ideation (denies) and positive for Homicidal Ideation (denies) Depressive Symptoms: Difficulty Concentrating Judgement: Fair Diagnostics Vital Signs (24Hr): Vital Signs - 24 hr 12/09/22 18:15 12/10/22 08:10 Temperature 98.2 F 97.8 F Pulse Rate 79 85 Respiratory Rate 18 18 Blood Pressure 136/70 119/71 Pulse Oximetry 95 95 Oxygen Delivery Method Room Air Room Air BMI result Body Mass Index 33.1 Labs 12/08/22 07:36 11/18/22 13:23 Imaging Radiology Impressions: ITS Impressions Chest X-Ray 11/18/22 14:30 IMPRESSION: Minimal blunting of the left costophrenic angle could represent pleural scarring or very small left pleural effusion. Mild bibasilar atelectasis/scarring. Medications Medications Current Medications Acetaminophen (Acetaminophen 325 Mg Tablet) 650 mg PO Q6H PRN PRN Reason: Headache/Pain Mild Scale (1-3) Last Admin: 12/08/22 21:37 Dose: 650 mg Al Hydroxide/Mg Hydroxide (Magnesium Hydrox/Alum Hydrox 30 Ml Oral.Susp) 30 ml PO Q6H PRN PRN Reason: Heartburn/Nausea Albuterol Sulfate (Albuterol Sulfate 90 Mcg 8 Gm Inhaler) 2 puff INHALE Q4H PRN PRN Reason: Shortness Of Breath Or Wheezing Last Admin: 11/30/22 11:03 Dose: 2 puff Atenolol (Atenolol 25 Mg Tablet) 25 mg PO DAILY [facility]; Protocol Last Admin: 12/10/22 08:09 Dose: 25 mg Benzocaine (Throat Lozenge, Medicated Lozenge) 1 lozenge MUCOUS MEM Q2H PRN PRN Reason: Sore Throat Last Admin: 11/29/22 19:49 Dose: 1 lozenge Cyclobenzaprine HCl (Cyclobenzaprine Hcl 5 Mg Tablet) 5 mg PO TID PRN PRN Reason: back pain Last Admin: 12/10/22 10:22 Dose: 5 mg Divalproex Sodium (Divalproex Sodium Er 500 Mg Tab.Er.24h) 1,500 mg PO BEDTIME LIANA Last Admin: 12/09/22 20:24 Dose: 1,500 mg Hydroxyzine HCl (Hydroxyzine Hcl 25 Mg Tablet) 25 mg PO Q6H PRN PRN Reason: Anxiety Ibuprofen (Ibuprofen 400 Mg Tablet) 400 mg PO Q8H PRN PRN Reason: Pain, Mild (Pain Scale 1-3) Last Admin: 12/09/22 12:00 Dose: 400 mg Loratadine (Loratadine 10 Mg Tablet) 10 mg PO DAILY [facility] Last Admin: 12/10/22 08:09 Dose: 10 mg Magnesium Hydroxide (Milk Of Magnesia 30 Ml Oral.Susp) 30 ml PO DAILY PRN PRN Reason: Constipation Melatonin (Melatonin 3 Mg Tablet) 3 mg PO BEDTIME PRN PRN Reason: Insomnia Last Admin: 12/09/22 20:24 Dose: 3 mg Nicotine Polacrilex (Nicotine Polacrilex 2 Mg Gum) 4 mg BUCCAL Q2H PRN PRN Reason: Nicotine Cravings Olanzapine (Olanzapine 5 Mg Tablet) 5 mg PO TID PRN PRN Reason: agitation Last Admin: 12/04/22 21:30 Dose: 5 mg Olanzapine (Olanzapine 10 Mg Tablet) 20 mg PO BEDTIME LIANA Last Admin: 12/09/22 20:24 Dose: 20 mg Ondansetron HCl (Ondansetron Odt 4 Mg Tab.Rapdis) 4 mg TRANSLINGU Q6H PRN PRN Reason: nasuea/vomit Simethicone (Simethicone 80 Mg Tab.Chew) 80 mg PO QIDWMHS PRN PRN Reason: indigestion Trazodone HCl (Trazodone Hcl 50 Mg Tablet) 50 mg PO BEDTIME MRX1 PRN PRN Reason: Insomnia Last Admin: 12/09/22 20:24 Dose: 50 mg Allergies Allergies Allergy/AdvReac Type Severity Reaction Status Date / Time propofol Allergy Unknown Verified 11/18/22 12:22 warfarin Allergy Unknown Verified 11/18/22 12:22 Assessment & Plan Assessment & Plan (1) Schizoaffective disorder, bipolar type: Status: Acute Code(s): F25.0 - Schizoaffective disorder, bipolar type Plan Patient is a 56-year-old male on Section 12B with history of psychotic illness, likely schizoaffective disorder who presents after being picked up by police for disorganized behavior, found in a school parking lot unsure of where he was. Patient is calm, cooperative and polite though prone to being guarded and suspicious. He is somewhat of a limited historian due to some disorganized thought process. Patient reports that he used to be on risperidone up to 9 mg; it is not sure how long ago he was on this medication but he seems to say he tapered himself off of at some point concerned about the possible long lines operator side effects. Recently he was admitted to psychiatric hospital at [facility] in [place] for 2 weeks where he was started on Zyprexa which he says he has been taking regularly however he is concerned about this medication and has some paranoid delusions about the reasons it was started and the 1st place. Throughout discussion patient will intermittently make references to being followed, being persecuted by people or organizations, being poisoned, etc.; during interview several pigeons flew to the window and patient stopped to say that the bird was a Drone. He denies hearing actual voices but endorses getting electric sensations, radio waves, vibrations. He also made some references to being concerned about being on the unit too long and missing out on being in a movie with Woody Garjeda and Tree Mclaughlin. Patient reports that he has not gotten much sleep this past week; he says he has been on lithium in the past for ricky but stopped it saying it caused excessive urination and hyponatremia. Patient has insight to know that medications help him and was interested in clozapine, despite the need for weekly blood draws, given the relatively lowered risk of dystonia and tardive dyskinesia. Patient denies any SI or HI. PLAN Section 12 B; wants treatment and may be amenable to signing in Q 15 minute checks Increase Depakote to 1000 mg q.h.s. since typical level subtherapeutic and patient remains manic Continue Zyprexa 20 mg g q.h.s. for now Patient interested in clozapine; will strongly consider however lack of permanent residence makes weekly blood draws a barrier Will seek Collateral 11/21/22 Continue Olanzapine Encourage collateral contact consent 11/22/22 Increase Olanzapine to 30 mg HS Depakote ER 500 mg HS 11/23/22 Continue current regime Diagnostics next week-Valproate level, CBC Continue to work on consents for medical collateral 11/24/2022 Continue current regimen Will get Depakote level tomorrow since he will have reached steady state by than Patient remains manic and with paranoid delusions Depakote level subtherapeutic and patient agrees to increasing Depakote to 1000 mg 11/27/22 Continue current regime Hospitalist consult for mgt of thoracic aortic aneurysm Atenolol re-started at 25 mg daily-pt was taking this when in pt in [place] 10/20-11/10. 11/29/22 Valproate Level CBCD 11/30/22 Continue current regime 12/01: Continue current plan. 12/02: Increase Depakote to 1,500 mg HS. Level was 52. 12/03/22: Decrease Olanzapine to 25 mg HS Simethicone prn per pt request Flexeril 5 mg tid prn per pt request 12/06/22: Sleep study appt after discharge, pt to consider. 12/07/22: Valproate Level and CBC on 12/08/22. 12/09/22: Discharge planning. 12/10/22: Continue current regime and plan of care. Patient educated on: medication risk/benefits and therapeutic strategies Informed Consent: understands Reason for continued inpatient stay Substantial Risk for: rapid decompensation Time Spent With Patient Time: Total time managing care of this patient today ____ minutes.
[2022-12-10] MEDS: Magnesium Hydrox/Alum Hydrox 30 ML ORAL.SUSP PO (14:49)
[2022-12-10 18:00] VITALS: BP 163/103; PULSE 67; TEMP 36.7; O2SAT 99
[2022-12-10] MEDS: Ibuprofen 400 MG TABLET PO (18:38)
[2022-12-10] MEDS: Divalproex Sodium ER 500 MG TAB.ER.24H 1500 MG PO (20:01)
[2022-12-10] MEDS: OLANZapine 10 MG TABLET 20 MG PO (20:02)
[2022-12-10] MEDS: Melatonin 3 MG TABLET PO (20:03)
[2022-12-11 08:40] VITALS: BP 137/76; PULSE 87; RESP 16; TEMP 36.5; O2SAT 96
[2022-12-11] MEDS: Loratadine 10 MG TABLET PO (08:49)
[2022-12-11] MEDS: atenoloL 25 MG TABLET PO (08:49)
--- NOTE | 2022-12-11 11:48 | HO.PSYCHPN ---
Subjective Subjective Date of Service: 12/11/22 Reason For Visit: disorganized, psychosis Interim History: Pt reports feeling well. Continues to report ongoing improvement in thinking. Denies side effects other than increased appetite and some tiredness. Mood is stable. No agitation. Improved per nursing. Denies SI/HI/AVH. Review of Systems Review of Systems Constitutional : No Weight loss, No Fever, No Chills, No Fatigue, No Malaise ENT/Mouth : No sore throat, No Rhinorrhea Eyes: No Eye Pain, No Swelling, No Redness Cardiovascular : No Chest Pain, No SOB, No Dyspnea on Exertion, No Orthopnea, No Edema, No Palpitations Respiratory : No Cough, No Sputum, No Wheezing Gastrointestinal : No Nausea, No Vomiting, No Diarrhea, No Constipation, No abdominal Pain, No Hematochezia, No Melena Genitourinary : No Dysuria, No Urinary Frequency, No Hematuria, Musculoskeletal : No joint pain, No Myalgias, No Joint Swelling Skin : No Skin Lesions, No rash Neuro : No Weakness, No Numbness, No Dizziness, No Headache Psych : + Anxiety/Panic, + Depression, No SI/HI All other systems reviewed and are negative Yes all other systems are reviewed and are negative Mental Status Exam Mental Status Exam Narrative: Pt is alert and oriented; behavior is cooperative, friendly and calm but also suspicious and guarded; patient is not in distress; dressed in casual attire with unkempt hair and scruffy facial hair; mood is described as okay and affect congruent; eye contact appropriate; Speech is normal rate, volume and prosody and not pressured; some mild psychomotor agitation present as patient is pacing the novak; thought process can be goal directed but is also disorganized; Thought content is on paranoid delusional thoughts but also on treatment; some grandiosity; denies any SI/HI. Patient internally preoccupied, self dialogueing and has some amount of AH Patients insight and judgment are impaired. Patient Appearance: Appropriate Patient Orientation: Person, Place, Time and Situation Level of Consciousness: Alert Patient Behavior: Appropriate, Talkative, Cooperative and Good Eye Contact Mood Description: Flat Affect Description: Flat Patient Cognition Impaired: No Ability to Follow Directions: Good Speech Pattern: Spontaneous Speech Memory Description: Remote Impaired Diagnostics Vital Signs (24Hr): Vital Signs - 24 hr 12/10/22 18:00 12/11/22 08:40 Temperature 98.1 F 97.7 F Pulse Rate 67 87 Respiratory Rate 16 Blood Pressure 163/103 H 137/76 Pulse Oximetry 99 96 Oxygen Delivery Method Room Air BMI result Body Mass Index 33.1 Labs 12/08/22 07:36 11/18/22 13:23 Imaging Radiology Impressions: ITS Impressions Chest X-Ray 11/18/22 14:30 IMPRESSION: Minimal blunting of the left costophrenic angle could represent pleural scarring or very small left pleural effusion. Mild bibasilar atelectasis/scarring. Medications Medications Current Medications Acetaminophen (Acetaminophen 325 Mg Tablet) 650 mg PO Q6H PRN PRN Reason: Headache/Pain Mild Scale (1-3) Last Admin: 12/08/22 21:37 Dose: 650 mg Al Hydroxide/Mg Hydroxide (Magnesium Hydrox/Alum Hydrox 30 Ml Oral.Susp) 30 ml PO Q6H PRN PRN Reason: Heartburn/Nausea Last Admin: 12/10/22 14:49 Dose: 30 ml Albuterol Sulfate (Albuterol Sulfate 90 Mcg 8 Gm Inhaler) 2 puff INHALE Q4H PRN PRN Reason: Shortness Of Breath Or Wheezing Last Admin: 11/30/22 11:03 Dose: 2 puff Atenolol (Atenolol 25 Mg Tablet) 25 mg PO DAILY LIANA; Protocol Last Admin: 12/11/22 08:49 Dose: 25 mg Benzocaine (Throat Lozenge, Medicated Lozenge) 1 lozenge MUCOUS MEM Q2H PRN PRN Reason: Sore Throat Last Admin: 11/29/22 19:49 Dose: 1 lozenge Cyclobenzaprine HCl (Cyclobenzaprine Hcl 5 Mg Tablet) 5 mg PO TID PRN PRN Reason: back pain Last Admin: 12/10/22 10:22 Dose: 5 mg Divalproex Sodium (Divalproex Sodium Er 500 Mg Tab.Er.24h) 1,500 mg PO BEDTIME LIANA Last Admin: 12/10/22 20:01 Dose: 1,500 mg Hydroxyzine HCl (Hydroxyzine Hcl 25 Mg Tablet) 25 mg PO Q6H PRN PRN Reason: Anxiety Ibuprofen (Ibuprofen 400 Mg Tablet) 400 mg PO Q8H PRN PRN Reason: Pain, Mild (Pain Scale 1-3) Last Admin: 12/10/22 18:38 Dose: 400 mg Loratadine (Loratadine 10 Mg Tablet) 10 mg PO DAILY LIANA Last Admin: 12/11/22 08:49 Dose: 10 mg Magnesium Hydroxide (Milk Of Magnesia 30 Ml Oral.Susp) 30 ml PO DAILY PRN PRN Reason: Constipation Melatonin (Melatonin 3 Mg Tablet) 3 mg PO BEDTIME PRN PRN Reason: Insomnia Last Admin: 12/10/22 20:03 Dose: 3 mg Nicotine Polacrilex (Nicotine Polacrilex 2 Mg Gum) 4 mg BUCCAL Q2H PRN PRN Reason: Nicotine Cravings Olanzapine (Olanzapine 5 Mg Tablet) 5 mg PO TID PRN PRN Reason: agitation Last Admin: 12/04/22 21:30 Dose: 5 mg Olanzapine (Olanzapine 10 Mg Tablet) 20 mg PO BEDTIME LIANA Last Admin: 12/10/22 20:02 Dose: 20 mg Ondansetron HCl (Ondansetron Odt 4 Mg Tab.Rapdis) 4 mg TRANSLINGU Q6H PRN PRN Reason: nasuea/vomit Simethicone (Simethicone 80 Mg Tab.Chew) 80 mg PO QIDWMHS PRN PRN Reason: indigestion Trazodone HCl (Trazodone Hcl 50 Mg Tablet) 50 mg PO BEDTIME MRX1 PRN PRN Reason: Insomnia Last Admin: 12/09/22 20:24 Dose: 50 mg Allergies Allergies Allergy/AdvReac Type Severity Reaction Status Date / Time propofol Allergy Unknown Verified 11/18/22 12:22 warfarin Allergy Unknown Verified 11/18/22 12:22 Assessment & Plan Assessment & Plan (1) Schizoaffective disorder, bipolar type: Status: Acute Code(s): F25.0 - Schizoaffective disorder, bipolar type Plan Patient is a 56-year-old male on Section 12B with history of psychotic illness, likely schizoaffective disorder who presents after being picked up by police for disorganized behavior, found in a school parking lot unsure of where he was. Patient is calm, cooperative and polite though prone to being guarded and suspicious. He is somewhat of a limited historian due to some disorganized thought process. Patient reports that he used to be on risperidone up to 9 mg; it is not sure how long ago he was on this medication but he seems to say he tapered himself off of at some point concerned about the possible remote computer terminal operator side effects. Recently he was admitted to psychiatric hospital at [facility] in [place] for 2 weeks where he was started on Zyprexa which he says he has been taking regularly however he is concerned about this medication and has some paranoid delusions about the reasons it was started and the 1st place. Throughout discussion patient will intermittently make references to being followed, being persecuted by people or organizations, being poisoned, etc.; during interview several pigeons flew to the window and patient stopped to say that the bird was a Drone. He denies hearing actual voices but endorses getting electric sensations, radio waves, vibrations. He also made some references to being concerned about being on the unit too long and missing out on being in a movie with Woody Grajeda and Tree Mclaughlin. Patient reports that he has not gotten much sleep this past week; he says he has been on lithium in the past for ricky but stopped it saying it caused excessive urination and hyponatremia. Patient has insight to know that medications help him and was interested in clozapine, despite the need for weekly blood draws, given the relatively lowered risk of dystonia and tardive dyskinesia. Patient denies any SI or HI. PLAN Section 12 B; wants treatment and may be amenable to signing in Q 15 minute checks Increase Depakote to 1000 mg q.h.s. since typical level subtherapeutic and patient remains manic Continue Zyprexa 20 mg g q.h.s. for now Patient interested in clozapine; will strongly consider however lack of permanent residence makes weekly blood draws a barrier Will seek Collateral 11/21/22 Continue Olanzapine Encourage collateral contact consent 11/22/22 Increase Olanzapine to 30 mg HS Depakote ER 500 mg HS 11/23/22 Continue current regime Diagnostics next week-Valproate level, CBC Continue to work on consents for medical collateral 11/24/2022 Continue current regimen Will get Depakote level tomorrow since he will have reached steady state by than Patient remains manic and with paranoid delusions Depakote level subtherapeutic and patient agrees to increasing Depakote to 1000 mg 11/27/22 Continue current regime Hospitalist consult for mgt of thoracic aortic aneurysm Atenolol re-started at 25 mg daily-pt was taking this when in pt in [place] 10/20-11/10. 11/29/22 Valproate Level CBCD 11/30/22 Continue current regime 12/01: Continue current plan. 12/02: Increase Depakote to 1,500 mg HS. Level was 52. 12/03/22: Decrease Olanzapine to 25 mg HS Simethicone prn per pt request Flexeril 5 mg tid prn per pt request 12/06/22: Sleep study appt after discharge, pt to consider. 12/07/22: Valproate Level and CBC on 12/08/22. 12/09/22: Discharge planning. 12/10/22: Continue current regime and plan of care. 12/11: Continue current plan. Reason for continued inpatient stay Substantial Risk for: inability to function and rapid decompensation Time Spent With Patient Time: Total time managing care of this patient today ____ minutes.
[2022-12-11] MEDS: Ibuprofen 400 MG TABLET PO (17:41)
[2022-12-11 20:10] VITALS: BP 141/22; PULSE 73; TEMP 36.1
[2022-12-11] MEDS: traZODone HCL 50 MG TABLET PO (20:12)
[2022-12-11] MEDS: Melatonin 3 MG TABLET PO (20:12)
[2022-12-11] MEDS: OLANZapine 10 MG TABLET 20 MG PO (20:12)
[2022-12-11] MEDS: Divalproex Sodium ER 500 MG TAB.ER.24H 1500 MG PO (20:13)
[2022-12-12 08:45] VITALS: BP 152/97; PULSE 62; RESP 16; TEMP 36.7; O2SAT 95
[2022-12-12] MEDS: atenoloL 25 MG TABLET PO (08:46)
[2022-12-12] MEDS: Ibuprofen 400 MG TABLET PO (08:46)
[2022-12-12] MEDS: Cyclobenzaprine HCl 5 MG TABLET PO (11:02)
[2022-12-12] MEDS: Loratadine 10 MG TABLET PO (11:08)
[2022-12-12] MEDS: Magnesium Hydrox/Alum Hydrox 30 ML ORAL.SUSP PO (11:12)
[2022-12-12 20:15] VITALS: BP 130/81; PULSE 76; TEMP 36.6; O2SAT 98
[2022-12-12] MEDS: OLANZapine 10 MG TABLET 20 MG PO (20:41)
[2022-12-12] MEDS: Divalproex Sodium ER 500 MG TAB.ER.24H 1500 MG PO (20:41)
[2022-12-12] MEDS: Melatonin 3 MG TABLET PO (20:41)
[2022-12-13 07:00] VITALS: BMI 33.8
[2022-12-13 08:55] VITALS: BP 148/81; PULSE 71; RESP 16; TEMP 36.3; O2SAT 95
[2022-12-13] MEDS: Loratadine 10 MG TABLET PO (09:03)
[2022-12-13] MEDS: atenoloL 25 MG TABLET PO (09:03)
[2022-12-13] MEDS: Ibuprofen 400 MG TABLET PO (11:47)
[2022-12-13] MEDS: Cyclobenzaprine HCl 5 MG TABLET PO (14:29)
[2022-12-13] MEDS: Magnesium Hydrox/Alum Hydrox 30 ML ORAL.SUSP PO (14:30)
--- NOTE | 2022-12-13 15:51 | HO.PSYCHPN ---
Subjective Subjective Date of Service: 12/12/22 Reason For Visit: disorganized, psychosis Subjective Notes: Section 7 Healthcare Proxy: No Guardianship: No Medical Problems Affecting Mental Status: No Interim History: Yes, I feel ready to leave. I feel really good. Pt working on his housing options. Today, reports he is considering a hotel in the [facility] and has an option for an apartment in the [facility] and the [facility]. He is allowing his son to help him. Reports regime is tolerated and without SE, but I do take a nap in the afternoon, I think I may be bored. Medication Compliance: Yes Side effects from medications: No Attending Groups: Yes Review of Systems Acute medical concerns: No Medical Review of Systems: unchanged Mental Status Exam Mental Status Exam Patient Appearance: Appropriate Patient Orientation: Person, Place, Time and Situation Level of Consciousness: Alert Patient Behavior: Appropriate and Good Eye Contact Mood Description: Appropriate Affect Description: Appropriate Patient Cognition Impaired: No Ability to Follow Directions: Good Speech Pattern: Spontaneous Speech Memory Description: Episodic Impaired Hallucinations: None Delusions: Paranoid Ideation, Grandiose and Present Thought Process: Goal Oriented Thought Content: positive for Goal Oriented Judgement: Good Diagnostics Vital Signs (24Hr): Vital Signs - 24 hr 12/12/22 20:15 12/13/22 08:55 Temperature 98 F 97.3 F Pulse Rate 76 71 Respiratory Rate 16 Blood Pressure 130/81 148/81 H Pulse Oximetry 98 95 Oxygen Delivery Method Room Air Room Air BMI result Body Mass Index 33.8 Labs 12/08/22 07:36 11/18/22 13:23 Imaging Radiology Impressions: ITS Impressions Chest X-Ray 11/18/22 14:30 IMPRESSION: Minimal blunting of the left costophrenic angle could represent pleural scarring or very small left pleural effusion. Mild bibasilar atelectasis/scarring. Medications Medications Current Medications Acetaminophen (Acetaminophen 325 Mg Tablet) 650 mg PO Q6H PRN PRN Reason: Headache/Pain Mild Scale (1-3) Last Admin: 12/08/22 21:37 Dose: 650 mg Al Hydroxide/Mg Hydroxide (Magnesium Hydrox/Alum Hydrox 30 Ml Oral.Susp) 30 ml PO Q6H PRN PRN Reason: Heartburn/Nausea Last Admin: 12/13/22 14:30 Dose: 30 ml Albuterol Sulfate (Albuterol Sulfate 90 Mcg 8 Gm Inhaler) 2 puff INHALE Q4H PRN PRN Reason: Shortness Of Breath Or Wheezing Last Admin: 11/30/22 11:03 Dose: 2 puff Atenolol (Atenolol 25 Mg Tablet) 25 mg PO DAILY [facility]; Protocol Last Admin: 12/13/22 09:03 Dose: 25 mg Benzocaine (Throat Lozenge, Medicated Lozenge) 1 lozenge MUCOUS MEM Q2H PRN PRN Reason: Sore Throat Last Admin: 11/29/22 19:49 Dose: 1 lozenge Cyclobenzaprine HCl (Cyclobenzaprine Hcl 5 Mg Tablet) 5 mg PO TID PRN PRN Reason: back pain Last Admin: 12/13/22 14:29 Dose: 5 mg Divalproex Sodium (Divalproex Sodium Er 500 Mg Tab.Er.24h) 1,500 mg PO BEDTIME LIANA Last Admin: 12/12/22 20:41 Dose: 1,500 mg Hydroxyzine HCl (Hydroxyzine Hcl 25 Mg Tablet) 25 mg PO Q6H PRN PRN Reason: Anxiety Ibuprofen (Ibuprofen 400 Mg Tablet) 400 mg PO Q8H PRN PRN Reason: Pain, Mild (Pain Scale 1-3) Last Admin: 12/13/22 11:47 Dose: 400 mg Loratadine (Loratadine 10 Mg Tablet) 10 mg PO DAILY [facility] Last Admin: 12/13/22 09:03 Dose: 10 mg Magnesium Hydroxide (Milk Of Magnesia 30 Ml Oral.Susp) 30 ml PO DAILY PRN PRN Reason: Constipation Melatonin (Melatonin 3 Mg Tablet) 3 mg PO BEDTIME PRN PRN Reason: Insomnia Last Admin: 12/12/22 20:41 Dose: 3 mg Nicotine Polacrilex (Nicotine Polacrilex 2 Mg Gum) 4 mg BUCCAL Q2H PRN PRN Reason: Nicotine Cravings Olanzapine (Olanzapine 5 Mg Tablet) 5 mg PO TID PRN PRN Reason: agitation Last Admin: 12/04/22 21:30 Dose: 5 mg Olanzapine (Olanzapine 10 Mg Tablet) 20 mg PO BEDTIME [facility] Last Admin: 12/12/22 20:41 Dose: 20 mg Ondansetron HCl (Ondansetron Odt 4 Mg Tab.Rapdis) 4 mg TRANSLINGU Q6H PRN PRN Reason: nasuea/vomit Simethicone (Simethicone 80 Mg Tab.Chew) 80 mg PO QIDWMHS PRN PRN Reason: indigestion Trazodone HCl (Trazodone Hcl 50 Mg Tablet) 50 mg PO BEDTIME MRX1 PRN PRN Reason: Insomnia Last Admin: 12/11/22 20:12 Dose: 50 mg Allergies Allergies Allergy/AdvReac Type Severity Reaction Status Date / Time propofol Allergy Unknown Verified 11/18/22 12:22 warfarin Allergy Unknown Verified 11/18/22 12:22 Assessment & Plan Assessment & Plan (1) Schizoaffective disorder, bipolar type: Status: Acute Code(s): F25.0 - Schizoaffective disorder, bipolar type Plan Patient is a 56-year-old male on Section 12B with history of psychotic illness, likely schizoaffective disorder who presents after being picked up by police for disorganized behavior, found in a school parking lot unsure of where he was. Patient is calm, cooperative and polite though prone to being guarded and suspicious. He is somewhat of a limited historian due to some disorganized thought process. 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 Recently he was admitted to psychiatric hospital at [facility] in [place] for 2 weeks where he was started on Zyprexa which he says he has been taking regularly however he is concerned about this medication and has some paranoid delusions about the reasons it was started and the 1st place. Throughout discussion patient will intermittently make references to being followed, being persecuted by people or organizations, being poisoned, etc.; during interview several pigeons flew to the window and patient stopped to say that the bird was a Drone. He denies hearing actual voices but endorses getting electric sensations, radio waves, vibrations. He also made some references to being concerned about being on the unit too long and missing out on being in a movie with Woody Grajeda and Tree Mclaughlin. Patient reports that he has not gotten much sleep this past week; he says he has been on lithium in the past for ricky but stopped it saying it caused excessive urination and hyponatremia. Patient has insight to know that medications help him and was interested in clozapine, despite the need for weekly blood draws, given the relatively lowered risk of dystonia and tardive dyskinesia. Patient denies any SI or HI. PLAN Section 12 B; wants treatment and may be amenable to signing in Q 15 minute checks Increase Depakote to 1000 mg q.h.s. since typical level subtherapeutic and patient remains manic Continue Zyprexa 20 mg g q.h.s. for now Patient interested in clozapine; will strongly consider however lack of permanent residence makes weekly blood draws a barrier Will seek Collateral 11/21/22 Continue Olanzapine Encourage collateral contact consent 11/22/22 Increase Olanzapine to 30 mg HS Depakote ER 500 mg HS 11/23/22 Continue current regime Diagnostics next week-Valproate level, CBC Continue to work on consents for medical collateral 11/24/2022 Continue current regimen Will get Depakote level tomorrow since he will have reached steady state by than / Patient remains manic and with paranoid delusions Depakote level subtherapeutic and patient agrees to increasing Depakote to 1000 mg 11/27/22 Continue current regime Hospitalist consult for mgt of thoracic aortic aneurysm Atenolol re-started at 25 mg daily-pt was taking this when in pt in [place] 10/20-11/10. 11/29/22 Valproate Level CBCD 11/30/22 Continue current regime 12/01: Continue current plan. 12/02: Increase Depakote to 1,500 mg HS. Level was 52. 12/03/22: Decrease Olanzapine to 25 mg HS Simethicone prn per pt request Flexeril 5 mg tid prn per pt request 12/06/22: Sleep study appt after discharge, pt to consider. 12/07/22: Valproate Level and CBC on 12/08/22. 12/09/22: Discharge planning. 12/10/22: Continue current regime and plan of care. 12/11: Continue current plan. 12/12/22: Discharge planning. Patient educated on: therapeutic strategies Informed Consent: understands Reason for continued inpatient stay Substantial Risk for: rapid decompensation Time Spent With Patient Time: Total time managing care of this patient today ____ minutes.
--- NOTE | 2022-12-13 15:51 | HO.PSYCHPN ---
Subjective Subjective Date of Service: 12/13/22 Reason For Visit: disorganized, psychosis Subjective Notes: Section 7 Healthcare Proxy: No Guardianship: No Medical Problems Affecting Mental Status: No Interim History: Discussed discharge with pt and team. Pt would like to discharge on 12/14. Son is assisting pt in finding housing, they will see an apartment on 12/17 in the [facility]. Pt has ideas about temporary housing, he may stay in a hotel in the [facility] for a brief time, as well as an option in [place] he will check on. Reports feeling improved. Will get labs in the a.m. to send to PCP. Medication Compliance: Yes Side effects from medications: No Attending Groups: Yes Review of Systems Acute medical concerns: No Medical Review of Systems: unchanged Mental Status Exam Mental Status Exam Patient Appearance: Appropriate Patient Orientation: Person, Place, Time and Situation Level of Consciousness: Alert Patient Behavior: Appropriate and Good Eye Contact Mood Description: Appropriate Affect Description: Appropriate Patient Cognition Impaired: No Ability to Follow Directions: Good Speech Pattern: Spontaneous Speech Memory Description: Episodic Impaired Hallucinations: None Delusions: Paranoid Ideation, Grandiose and Present Thought Process: Goal Oriented Thought Content: positive for Goal Oriented Judgement: Good Diagnostics Vital Signs (24Hr): Vital Signs - 24 hr 12/12/22 20:15 12/13/22 08:55 Temperature 98 F 97.3 F Pulse Rate 76 71 Respiratory Rate 16 Blood Pressure 130/81 148/81 H Pulse Oximetry 98 95 Oxygen Delivery Method Room Air Room Air BMI result Body Mass Index 33.8 Labs 12/08/22 07:36 11/18/22 13:23 Imaging Radiology Impressions: ITS Impressions Chest X-Ray 11/18/22 14:30 IMPRESSION: Minimal blunting of the left costophrenic angle could represent pleural scarring or very small left pleural effusion. Mild bibasilar atelectasis/scarring. Medications Medications Current Medications Acetaminophen (Acetaminophen 325 Mg Tablet) 650 mg PO Q6H PRN PRN Reason: Headache/Pain Mild Scale (1-3) Last Admin: 12/08/22 21:37 Dose: 650 mg Al Hydroxide/Mg Hydroxide (Magnesium Hydrox/Alum Hydrox 30 Ml Oral.Susp) 30 ml PO Q6H PRN PRN Reason: Heartburn/Nausea Last Admin: 12/13/22 14:30 Dose: 30 ml Albuterol Sulfate (Albuterol Sulfate 90 Mcg 8 Gm Inhaler) 2 puff INHALE Q4H PRN PRN Reason: Shortness Of Breath Or Wheezing Last Admin: 11/30/22 11:03 Dose: 2 puff Atenolol (Atenolol 25 Mg Tablet) 25 mg PO DAILY [facility] OF [facility]; Protocol Last Admin: 12/13/22 09:03 Dose: 25 mg Benzocaine (Throat Lozenge, Medicated Lozenge) 1 lozenge MUCOUS MEM Q2H PRN PRN Reason: Sore Throat Last Admin: 11/29/22 19:49 Dose: 1 lozenge Cyclobenzaprine HCl (Cyclobenzaprine Hcl 5 Mg Tablet) 5 mg PO TID PRN PRN Reason: back pain Last Admin: 12/13/22 14:29 Dose: 5 mg Divalproex Sodium (Divalproex Sodium Er 500 Mg Tab.Er.24h) 1,500 mg PO BEDTIME ON [facility] Last Admin: 12/12/22 20:41 Dose: 1,500 mg Hydroxyzine HCl (Hydroxyzine Hcl 25 Mg Tablet) 25 mg PO Q6H PRN PRN Reason: Anxiety Ibuprofen (Ibuprofen 400 Mg Tablet) 400 mg PO Q8H PRN PRN Reason: Pain, Mild (Pain Scale 1-3) Last Admin: 12/13/22 11:47 Dose: 400 mg Loratadine (Loratadine 10 Mg Tablet) 10 mg PO DAILY ON [facility] Last Admin: 12/13/22 09:03 Dose: 10 mg Magnesium Hydroxide (Milk Of Magnesia 30 Ml Oral.Susp) 30 ml PO DAILY PRN PRN Reason: Constipation Melatonin (Melatonin 3 Mg Tablet) 3 mg PO BEDTIME PRN PRN Reason: Insomnia Last Admin: 12/12/22 20:41 Dose: 3 mg Nicotine Polacrilex (Nicotine Polacrilex 2 Mg Gum) 4 mg BUCCAL Q2H PRN PRN Reason: Nicotine Cravings Olanzapine (Olanzapine 5 Mg Tablet) 5 mg PO TID PRN PRN Reason: agitation Last Admin: 12/04/22 21:30 Dose: 5 mg Olanzapine (Olanzapine 10 Mg Tablet) 20 mg PO BEDTIME ON [facility] Last Admin: 12/12/22 20:41 Dose: 20 mg Ondansetron HCl (Ondansetron Odt 4 Mg Tab.Rapdis) 4 mg TRANSLINGU Q6H PRN PRN Reason: nasuea/vomit Simethicone (Simethicone 80 Mg Tab.Chew) 80 mg PO QIDWMHS PRN PRN Reason: indigestion Trazodone HCl (Trazodone Hcl 50 Mg Tablet) 50 mg PO BEDTIME MRX1 PRN PRN Reason: Insomnia Last Admin: 12/11/22 20:12 Dose: 50 mg Allergies Allergies Allergy/AdvReac Type Severity Reaction Status Date / Time propofol Allergy Unknown Verified 11/18/22 12:22 warfarin Allergy Unknown Verified 11/18/22 12:22 Assessment & Plan Assessment & Plan (1) Schizoaffective disorder, bipolar type: Status: Acute Code(s): F25.0 - Schizoaffective disorder, bipolar type Plan Patient is a 56-year-old male on Section 12B with history of psychotic illness, likely schizoaffective disorder who presents after being picked up by police for disorganized behavior, found in a school parking lot unsure of where he was. Patient is calm, cooperative and polite though prone to being guarded and suspicious. He is somewhat of a limited historian due to some disorganized thought process. 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 Recently he was admitted to psychiatric hospital at [facility] in [place] for 2 weeks where he was started on Zyprexa which he says he has been taking regularly however he is concerned about this medication and has some paranoid delusions about the reasons it was started and the 1st place. Throughout discussion patient will intermittently make references to being followed, being persecuted by people or organizations, being poisoned, etc.; during interview several pigeons flew to the window and patient stopped to say that the bird was a Drone. He denies hearing actual voices but endorses getting electric sensations, radio waves, vibrations. He also made some references to being concerned about being on the unit too long and missing out on being in a movie with Woody Grajeda and Tree Mclaughlin. Patient reports that he has not gotten much sleep this past week; he says he has been on lithium in the past for ricky but stopped it saying it caused excessive urination and hyponatremia. Patient has insight to know that medications help him and was interested in clozapine, despite the need for weekly blood draws, given the relatively lowered risk of dystonia and tardive dyskinesia. Patient denies any SI or HI. PLAN Section 12 B; wants treatment and may be amenable to signing in Q 15 minute checks Increase Depakote to 1000 mg q.h.s. since typical level subtherapeutic and patient remains manic Continue Zyprexa 20 mg g q.h.s. for now Patient interested in clozapine; will strongly consider however lack of permanent residence makes weekly blood draws a barrier Will seek Collateral 11/21/22 Continue Olanzapine Encourage collateral contact consent 11/22/22 Increase Olanzapine to 30 mg HS Depakote ER 500 mg HS 11/23/22 Continue current regime Diagnostics next week-Valproate level, CBC Continue to work on consents for medical collateral 11/24/2022 Continue current regimen Will get Depakote level tomorrow since he will have reached steady state by than Patient remains manic and with paranoid delusions Depakote level subtherapeutic and patient agrees to increasing Depakote to 1000 mg 11/27/22 Continue current regime Hospitalist consult for mgt of thoracic aortic aneurysm Atenolol re-started at 25 mg daily-pt was taking this when in pt in [place] 10/20-11/10. 11/29/22 Valproate Level CBCD 11/30/22 Continue current regime 12/01: Continue current plan. 12/02: Increase Depakote to 1,500 mg HS. Level was 52. 12/03/22: Decrease Olanzapine to 25 mg HS Simethicone prn per pt request Flexeril 5 mg tid prn per pt request 12/06/22: Sleep study appt after discharge, pt to consider. 12/07/22: Valproate Level and CBC on 12/08/22. 12/09/22: Discharge planning. 12/10/22: Continue current regime and plan of care. 12/11: Continue current plan. 12/13/22: Discharge 12/14/22. Patient educated on: medication risk/benefits and therapeutic strategies Informed Consent: understands and further education needed Reason for continued inpatient stay Substantial Risk for: rapid decompensation Time Spent With Patient Time: Total time managing care of this patient today ____ minutes.
[2022-12-13 16:34] VITALS: BP 121/62; PULSE 88; TEMP 36.6; O2SAT 97
[2022-12-13] MEDS: Melatonin 3 MG TABLET PO (19:54)
[2022-12-13] MEDS: OLANZapine 10 MG TABLET 20 MG PO (19:55)
[2022-12-13] MEDS: Divalproex Sodium ER 500 MG TAB.ER.24H 1500 MG PO (19:55)
[2022-12-14] MEDS: atenoloL 25 MG TABLET PO (08:07)
[2022-12-14] MEDS: Loratadine 10 MG TABLET PO (08:07)
[2022-12-14 08:15] VITALS: BP 136/88; PULSE 77; RESP 16; TEMP 36.2; O2SAT 95
[2022-12-14 08:56] LABS: Alanine Aminotransferase 27 U/L (0-40); Alkaline Phosphatase 58 U/L (39-117); Anion Gap 12 (12-20); Aspartate Amino Transferase 22 U/L (5-37); Bilirubin Total 0.4 mg/dL (0.0-1.0); Blood Urea Nitrogen 17 mg/dL (9-16); Calcium 9.3 mg/dL (8.4-10.2); Carbon Dioxide 30 mmol/L (22-29); Chloride 101 mmol/L (96-108); Creatinine Clr Calc Pharmacy 148.9; Estimated Glomerular Filt Rate > 60; Glucose Random 82 mg/dL (60-115); Potassium 4.7 mmol/L (3.3-5.1); Sodium 138 mmol/L (135-145); Total Protein 6.8 g/dL (6.5-8.0)
[2022-12-14] MEDS: Ibuprofen 400 MG TABLET PO (12:58)
[2022-12-14] MEDS: Magnesium Hydrox/Alum Hydrox 30 ML ORAL.SUSP PO (14:55)
[2022-12-14] MEDS: Albuterol Sulfate 90 MCG 8 GM INHALER 2 PUFF INHALE (16:50)
--- NOTE | 2023-02-11 07:44 | P.DS_ITS ---
DS: Providers Provider Date of Service: 12/14/22 Date of admission: 11/19/22 20:19 Date of discharge: 12/14/22 Primary care physician: Unknown Physician Admitting clinician: Juan Antonio Olivares Attending physician on admission: Juan Antonio Olivares Consults: 11/27/22 17:24 Consult to Hospitalist Routine Comment: atenolol to re-start; recent echo in chart from [place] Consulting Provider: Hospitalist Reason For Exam: Thoracic aortic aneurysm-mgt plan request Attending physician on discharge: Adrián Koenig Discharging clinician: Anitha Joaquin DS: Diagnosis Discharge Diagnosis (1) Schizoaffective disorder, bipolar type: Status: Acute DS: Medications Discharge Medications Home Medications: Home Medications Medication Instructions Recorded Confirmed ibuprofen 200 mg capsule 400 mg PO Q8H PRN Pain 11/19/22 11/19/22 Previous Rx's Medication Instructions Recorded albuterol sulfate 90 mcg/actuation 2 puff inhalation Q4-6H PRN 12/13/22 aerosol inhaler Shortness Of Breath Or Wheezing #1 inhaler atenolol 25 mg tablet 25 mg PO DAILY #30 tabs 12/13/22 cetirizine 10 mg tablet 10 mg PO DAILY #30 tabs 12/13/22 cyclobenzaprine 5 mg tablet 5 mg PO TID PRN back pain #90 tabs 12/13/22 divalproex 500 mg tablet,extended 1,500 mg PO BEDTIME #90 tabs 12/13/22 release 24 hr melatonin 3 mg tablet 3 mg PO BEDTIME PRN Insomnia #30 12/13/22 tabs nicotine (polacrilex) 2 mg gum 4 mg buccal Q2H PRN Nicotine 12/13/22 Cravings #60 ea olanzapine 20 mg tablet 20 mg PO BEDTIME #30 tabs 12/13/22 simethicone 80 mg chewable tablet 80 mg PO QIDWMHS PRN indigestion 12/13/22 (Gas Relief (simethicone)) #120 tabs trazodone 50 mg tablet 50 mg PO BEDTIME MRX1 PRN Insomnia 12/13/22 #60 tabs Mental Status Exam Mental Status Exam Patient Appearance: Appropriate Patient Orientation: Person, Place, Time and Situation Level of Consciousness: Alert Patient Behavior: Appropriate and Good Eye Contact Mood Description: Appropriate Affect Description: Appropriate Patient Cognition Impaired: No Ability to Follow Directions: Good Speech Pattern: Spontaneous Speech Memory Description: Episodic Impaired Hallucinations: None Thought Process: Goal Oriented Thought Content: positive for Goal Oriented Judgement: Good Data Imaging Diagnostic Imaging Impressions Chest X-Ray 11/18/22 14:30 IMPRESSION: Minimal blunting of the left costophrenic angle could represent pleural scarring or very small left pleural effusion. Mild bibasilar atelectasis/scarring. DS: Summary Hospital Course Hospital Course: Admission to adult psychiatry for exacerbation of schizoaffective disorder, bipolar type, ricky. Section VII filed. Mr. Chilel was able to recompensate slowly, reconnect with his son and was able to secure stable temporary housing close to the family prior to discharge. Valproate and Olanzapine were tolerated in assisting with symptom management. Time Spent with Patient Time attestation: Total time managing care of this patient today ____ minutes. Discharge Plan Discharge Anticipated Discharge Date/Time: 12/14/22 12:00 Patient Disposition: Xfer Other Discharge Diagnosis: Schizoaffective Disorder, Bipolar Type Referrals: [facility] Therapy with Kel Soliman [Other] - 12/18/22 11:00 am (At this intake please let clinician know you will also need case management. It will be important to advocate for the services you think you will be needing in the community. This can include day programs, day structure and socialization, a community support person, help with benefits etc. ) [facility] Medication Management with Sel[facility] Childs [Other] - 01/10/23 9:00 am (Telehealth - first appointment will be virtual however you can advocate for in- person sessions. Selina may be able to accommodate this request. ) [facility] [Other] - 1 Week (walk in) Discharge Medications: New nicotine (polacrilex) 2 mg Gum 4 mg buccal Q2H PRN (Reason: Nicotine Cravings) Qty: 60 0RF cyclobenzaprine 5 mg Tablet 5 mg PO TID PRN (Reason: back pain) Qty: 90 0RF trazodone 50 mg Tablet 50 mg PO BEDTIME MRX1 PRN (Reason: Insomnia) Qty: 60 0RF divalproex 500 mg Tablet Extended Release 24 Hr 1,500 mg PO BEDTIME Qty: 90 0RF simethicone [Gas Relief (simethicone)] 80 mg Tablet,Chewable 80 mg PO QIDWMHS PRN (Reason: indigestion) Qty: 120 0RF melatonin 3 mg Tablet 3 mg PO BEDTIME PRN (Reason: Insomnia) Qty: 30 0RF Continued ibuprofen 200 mg Capsule 400 mg PO Q8H PRN (Reason: Pain) cetirizine 10 mg Tablet 10 mg PO DAILY Qty: 30 0RF atenolol 25 mg Tablet 25 mg PO DAILY Qty: 30 0RF albuterol sulfate 90 mcg/actuation Hfa Aerosol Inhaler 2 puff INHALATION Q4-6H PRN (Reason: Shortness Of Breath Or Wheezing) Qty: 1 0RF olanzapine 20 mg Tablet 20 mg PO BEDTIME Qty: 30 0RF Discontinued fexofenadine [Lashawn] 180 mg Tablet 180 mg PO DAILY PRN (Reason: Allergy Symptoms) Discharge Orders: Discharge Order (Routine); Ordered 12/14/22 Ordered By: Anitha Joaquin Diet: Advance to usual diet Activity on Discharge: As tolerated Stand Alone Forms: Patient Portal Discharge page, Community Support Care Plan Goals: Mood and Behavioral Stabilization Health Concerns: Mood and Behavioral Stabilization Plan of Treatment: Attend scheduled appointments Take medications as directed Call/Return as needed Assessment: Pt interviewed prior to discharge and found to be fully oriented and without SI/HI. Pt has insight and demonstrates good judgment in terms of wanting to pursue treatment. Pt is not in imminent risk of harm to self or others and has a safety plan that includes presenting to the closest ER or calling 911 if he is feeling unsafe. Pt has been observed closely by nursing and unit staff throughout admission. Pt has not engaged in any behaviors that suggest dangerousness to self or others and has demonstrated appropriate behaviors and impulse control. Discharge Date/Time: 12/14/22 17:15
== END 2022-12-14 17:15 | disposition other institution (70) | DRG 885 ==
LOC: HO.ED 14:41 → HO.PM5 11-19 20:51
PROVIDERS: Physician Assistant; Physician Assistant Medical; Admitting Provider Psychiatry & Neurology Psychiatry; Emergency Provider Student in an Organized Health Care Education/Training Program; Visit Provider Clinical Nurse Specialist Psychiatric/Mental Health, Adult
DX: F25.0 Schizoaffective disorder, bipolar type (principal); Z59.02 Unsheltered homelessness; I35.0 Nonrheumatic aortic (valve) stenosis; Z20.822 Contact with and (suspected) exposure to COVID-19; Z79.01 Long term (current) use of anticoagulants; Z79.899 Other long term (current) drug therapy
CPT/HCPCS: 0241U; 36415; 71045; 80053; 80061; 80076; 80164; 80307; 81003; 82140; 82607; 82746; 83036; 83735; 84443; 85025; 85379; 87635; 93005; 99285; S9485

== ENCOUNTER → 2022-11-19 20:19 | Outpatient (BNV) | payer MEDICARE, SELFPAY | PROVIDERS: Admitting Provider Psychiatry & Neurology Psychiatry; Emergency Provider Student in an Organized Health Care Education/Training Program; Visit Provider Psychiatry & Neurology Psychiatry | DX: F25.0 Schizoaffective disorder, bipolar type (principal) | CPT/HCPCS: 90792; 99231; 99232; 99238 ==

== ENCOUNTER 2023-03-10 23:59 | Emergency (ER) | payer MEDICARE, SELFPAY ==
[2023-03-11] VITALS (7 sets, daily range): BP systolic 106–136; BP diastolic 7–81; PULSE 70–86; RESP 18–20; TEMP 36.4–36.8; O2SAT 95–100; BMI 32.9
--- NOTE | 2023-03-11 01:13 | MHC.EDTECH ---
Hourly rounds and vitals completed. [facility] obtained labs and sent to lab.
[2023-03-11 01:18] LABS: MANUAL DIFF FLAG NO
[2023-03-11 01:20] LABS: Basophils Absolute Auto 0.1 X10*3/uL (0.0-0.2); Basophils Percent Auto 0.5 % (0-2); Eosinophils Absolute Auto 0.3 X10*3/uL (0.0-0.4); Eosinophils Percent Auto 3.2 % (0-4); Hematocrit 41.6 % (42.0-52.0); Imm Gran Abs Auto 0.04 X10*3/uL (0.00-0.03); Imm Gran Pct Auto 0.4 % (0.0-0.4); Lymphocytes Percent Auto 30.6 % (20-40); Mean Corpuscular HGB Conc 36.1 g/dl (31.0-36.0); Mean Corpuscular Hemoglobin 32.5 pg (27.0-33.0); Mean Platelet Volume 8.8 fL (9.4-12.4); Monocytes Absolute Auto 1.1 X10*3/uL (0.1-1.2); Monocytes Percent Auto 11.1 % (2-11); Neutrophils Absolute Auto 5.4 x10*3/uL (2.0-8.3); Neutrophils Percent Auto 54.2 % (45-73); Platelet Count 239 X10*3/uL (160-400); Red Blood Count 4.62 X10*6/uL (4.60-5.80); Red Cell Distribution Width 12.4 % (11.0-16.0)
[2023-03-11 01:57] LABS: Alanine Aminotransferase 17 U/L (0-40); Albumin Level 3.5 g/dL (3.5-5.0); Alkaline Phosphatase 49 U/L (39-117); Aspartate Amino Transferase 29 U/L (5-37); Bilirubin Total 0.5 mg/dL (0.0-1.0); Blood Urea Nitrogen 14 mg/dL (9-16); Calcium 8.9 mg/dL (8.4-10.2); Carbon Dioxide 22 mmol/L (22-29); Chloride 96 mmol/L (96-108); Creatinine Clr Calc Pharmacy 147.3; Estimated Glomerular Filt Rate > 60; Glucose Random 113 mg/dL (60-115); Potassium 3.8 mmol/L (3.3-5.1); Sodium 128 mmol/L (135-145); Total Protein 5.5 g/dL (6.5-8.0)
[2023-03-11] MEDS: 0.9 % Sodium Chloride 1,000 ML 999 ML IV (03:15)
[2023-03-11 03:27] LABS: Ethanol < 10 mg/dL; Magnesium 1.9 mg/dL (1.6-2.6)
[2023-03-11 03:33] LABS: Valproate < 12.5 mcg/mL (50.0-100.0)
--- NOTE | 2023-03-11 04:09 | PC.NURSE ---
urinal placed at bedside, encouraged to call if he is able to go as we need a urine sample
[2023-03-11 04:23] LABS: Anion Gap 14 (12-20)
--- NOTE | 2023-03-11 05:14 | ED.GENADULT ---
HPI - General Adult General Chief complaint: General Medical Stated complaint: dehydrated Time Seen by Provider: 03/11/23 05:14 Source: patient Mode of arrival: EMS Limitations: no limitations History of Present Illness HPI narrative: 57-year-old male with a history of schizoaffective disorder who was found wandering around in a [facility]. Patient told the nursing staff they felt like he was dehydrated secondary to sun exposure. In reviewing the patient's past psychiatric admissions, the patient has been found wandering around and has had disorganized thought process. The patient told me that he is not depressed or anxious. He denies hearing voices. He denies being suicidal or homicidal. He states that he does have an apartment to live in but can not tell me the address. Patient does not know the medications that he is taking but states he is having trouble getting refills and it is unclear if he has been compliant. From a previous psychiatric admissions states that the patient's lithium had to be stopped secondary to hyponatremia and excessive urination. The patient has very disorganized thought process. When I asked him why he came to the emergency department today he stated the following I have been building up a lot of stressors, which are all centered around various factors, that are contributing to all of them . Related Data Home Medications Medication Instructions Recorded Confirmed ibuprofen 200 mg capsule 400 mg PO Q8H PRN Pain 11/19/22 11/19/22 Previous Rx's Medication Instructions Recorded albuterol sulfate 90 mcg/actuation 2 puff inhalation Q4-6H PRN 12/13/22 aerosol inhaler Shortness Of Breath Or Wheezing #1 inhaler atenolol 25 mg tablet 25 mg PO DAILY #30 tabs 12/13/22 cetirizine 10 mg tablet 10 mg PO DAILY #30 tabs 12/13/22 cyclobenzaprine 5 mg tablet 5 mg PO TID PRN back pain #90 tabs 12/13/22 divalproex 500 mg tablet,extended 1,500 mg (3 x 500 mg) PO BEDTIME 12/13/22 release 24 hr #90 tabs melatonin 3 mg tablet 3 mg PO BEDTIME PRN Insomnia #30 12/13/22 tabs nicotine (polacrilex) 2 mg gum 4 mg buccal Q2H PRN Nicotine 12/13/22 Cravings #60 ea olanzapine 20 mg tablet 20 mg PO BEDTIME #30 tabs 12/13/22 simethicone 80 mg chewable tablet 80 mg PO QIDWMHS PRN indigestion 12/13/22 (Gas Relief (simethicone)) #120 tabs trazodone 50 mg tablet 50 mg PO BEDTIME MRX1 PRN Insomnia 12/13/22 #60 tabs Allergies Allergy/AdvReac Type Severity Reaction Status Date / Time propofol Allergy Unknown Verified 11/18/22 12:22 warfarin Allergy Unknown Verified 11/18/22 12:22 [facility] Past Medical History Medical History (Updated 03/11/23 @ 07:27 by Enio Jerez MD) Schizoaffective disorder, bipolar type Social History Social History Household Members: None Housing: Homeless Do you presently have visiting nurse or other home services: No Alcohol intake: unknown Patient Tobacco Use Status: Tobacco use Unknown Smoked in Last 30 Days: Yes e-Cigarette/Vaping Use: Never Used Use of substances other than those prescribed or required for medical reasons: Yes Substance Use Type: Marijuana Substance Use Frequency: Daily Advance Directives: No Advance Directives Information Provided: No service: No Sexual orientation: Straight/Heterosexual Physical Exam ED Vital Signs: Vital Signs - 24 hr 03/11/23 00:11 03/11/23 01:12 03/11/23 02:13 Temperature 97.6 F 97.7 F 97.6 F Pulse Rate 81 75 74 Respiratory Rate 20 18 18 Blood Pressure 106/76 110/70 112/80 Pulse Oximetry 96 99 100 Oxygen Delivery Method Room Air Room Air Room Air 03/11/23 05:25 03/11/23 07:49 Temperature 98.2 F Pulse Rate 70 74 Respiratory Rate 18 18 Blood Pressure 127/80 136/81 Pulse Oximetry 95 95 Oxygen Delivery Method Room Air Room Air BMI result Body Mass Index 32.9 Vital signs were normal Exam: General: Awake, alert in no distress. The patient has very disorganized thought and appears to be confused Head: Normocephalic, atraumatic EENT: PERRL, Lids normal, sclera normal, conjunctiva normal, nose normal , ears normal, throat without erythema or exudates Neck: Supple, no adenopathy, trachea midline and nontender Lung: breath sounds symmetric, no wheezing, rales or rhonchi Chest: symmetric movement, nontender Heart: regular rate and rhythm, normal S1, S2 no murmurs or rubs Abdomen: soft, non-tender, nondistended, normal bowel sounds Back: no vertebral tenderness, no CVAT Extremities: no deformities, moves all extremities symmetrically Skin: no rashes, no lesion, normal color and warmth Neuro: Awake, alert, oriented, normal speech, cranial nerves intact, moves all extremities symmetrically Psych: Pleasant, cooperative Medications Administered Discontinued Medications Generic Name Dose Route Start Last Admin Trade Name Jessica PRN Reason Stop Dose Admin Sodium Chloride 1,000 mls @ 999 mls/hr 03/11/23 03:00 03/11/23 04:19 Ns IV 03/11/23 04:00 Infused .Q1H1M LIANA Infusion Medical Decision Making Medical Decision Making MDM Narrative: 57-year-old male with schizoaffective disorder-bipolar type who was brought to emergency department after he was found wandering around [facility] a [facility], appearing confused. The patient stated that he was dehydrated secondary to sun exposure. The patient's thought process appears to be very disorganized and is difficult to comprehend. Patient may not be compliant with his medications. Patient has had similar presentations in the past which have required hospitalization. Following evaluation was ordered: CBC, CMP, ethanol level, magnesium, Depakote, urinalysis, urine drug screen. Patient was ordered to get normal saline x1 L. 0542: Start physician observation: Laboratory evaluation revealed a normal CBC. Sodium was low 128 electrolytes were otherwise unremarkable. Alcohol level was below detectable limits. Patient's valproic acid is below detectable limits-this could be secondary to noncompliance or the patient may not be on this medication. Urine drug screen is pending Patient will be placed in physician observation, until completes is normal saline bolus and a repeat sodium can be obtained Patient will also need to be evaluated by the care team to determine if he requires hospitalization for noncompliance with his schizoaffective medication regimen. 0726: Continue physician observation: At the end of my shift, patient's workup was not complete therefore the patient's care was turned over to my colleague, Dr. Alonzo Bean. Differential Diagnosis Differential Diagnoses: The differential diagnosis associated with the presentation includes Differential diagnosis includes was not limited to exacerbation of schizoaffective disorder, depression, anxiety, noncompliance with medications, electrolyte abnormality, anemia Admission/Observation Consideration of admission/observation: Escalation of care including admission/observation considered Lab Data 03/11/23 01:11 03/11/23 01:11 Labs: Lab Results 03/11/23 03/11/23 Range/Units 01:11 03:12 WBC 10.0 (4.8-10.8) X10*3/uL RBC 4.62 (4.60-5.80) X10*6/uL Hgb 15.0 (14.0-18.0) g/dl Hct 41.6 L (42.0-52.0) % MCV 90.0 (80.0-98.0) fL MCH 32.5 (27.0-33.0) pg MCHC 36.1 H (31.0-36.0) g/dl RDW 12.4 (11.0-16.0) % Plt Count 239 (160-400) X10*3/uL MPV 8.8 L (9.4-12.4) fL Immature Gran % (Auto) 0.4 (0.0-0.4) % Neut % (Auto) 54.2 (45-73) % Lymph % (Auto) 30.6 (20-40) % Harris % (Auto) 11.1 H (2-11) % Eos % (Auto) 3.2 (0-4) % Baso % (Auto) 0.5 (0-2) % Lymph # (Auto) 3.0 (1.2-4.9) X10*3/uL Harris # (Auto) 1.1 (0.1-1.2) X10*3/uL Eos # (Auto) 0.3 (0.0-0.4) X10*3/uL Baso # (Auto) 0.1 (0.0-0.2) X10*3/uL Abs Immat Gran (auto) 0.04 H (0.00-0.03) X10*3/uL Absolute Neuts (auto) 5.4 (2.0-8.3) x10*3/uL Absolute Nucleated RBC 0.000 (0.0-0.012) X10*3/uL Nucleated RBC % (auto) 0.0 (0.0-0.2) /100WBC Sodium 128 L (135-145) mmol/L Potassium 3.8 (3.3-5.1) mmol/L Chloride 96 (96-108) mmol/L Carbon Dioxide 22 (22-29) mmol/L Anion Gap 14 (12-20) BUN 14 (9-16) mg/dL Creatinine 0.70 (0.5-1.4) mg/dL Estim Creat Clear Calc 147.3 Estimated GFR > 60 Random Glucose 113 (60-115) mg/dL Calcium 8.9 (8.4-10.2) mg/dL Magnesium 1.9 (1.6-2.6) mg/dL Total Bilirubin 0.5 (0.0-1.0) mg/dL AST 29 (5-37) U/L ALT 17 (0-40) U/L Alkaline Phosphatase 49 (39-117) U/L Total Protein 5.5 L (6.5-8.0) g/dL Albumin 3.5 (3.5-5.0) g/dL Valproic Acid < 12.5 L (50.0-100.0) mcg/mL Ethyl Alcohol < 10 mg/dL Discharge Plan Discharge Clinical Impression: Schizoaffective disorder, bipolar type, Disorganized behavior, Medically noncompliant, Acute hyponatremia Patient Disposition: Still a Patient Prescriptions: No Action ibuprofen 200 mg Capsule 400 mg PO Q8H PRN (Reason: Pain) nicotine (polacrilex) 2 mg Gum 4 mg buccal Q2H PRN (Reason: Nicotine Cravings) Qty: 60 0RF cyclobenzaprine 5 mg Tablet 5 mg PO TID PRN (Reason: back pain) Qty: 90 0RF trazodone 50 mg Tablet 50 mg PO BEDTIME MRX1 PRN (Reason: Insomnia) Qty: 60 0RF divalproex 500 mg Tablet Extended Release 24 Hr 1,500 mg PO BEDTIME Qty: 90 0RF simethicone [Gas Relief (simethicone)] 80 mg Tablet,Chewable 80 mg PO QIDWMHS PRN (Reason: indigestion) Qty: 120 0RF melatonin 3 mg Tablet 3 mg PO BEDTIME PRN (Reason: Insomnia) Qty: 30 0RF cetirizine 10 mg Tablet 10 mg PO DAILY Qty: 30 0RF atenolol 25 mg Tablet 25 mg PO DAILY Qty: 30 0RF albuterol sulfate 90 mcg/actuation Hfa Aerosol Inhaler 2 puff INHALATION Q4-6H PRN (Reason: Shortness Of Breath Or Wheezing) Qty: 1 0RF olanzapine 20 mg Tablet 20 mg PO BEDTIME Qty: 30 0RF
--- NOTE | 2023-03-11 07:50 | PC.NURSE ---
patient awake alert to person/place, denies pain/discomfort, lungs clear, ivf completed, pt urine obtained, repeat labs performed, vss, call mak within reach, pt awaiting care team, will continue to monitor
[2023-03-11 07:57] LABS: Appearance Urine Clear; Color Urine Yellow; Glucose Urine UA Negative (Negative); Leukocyte Esterase Urine Negative (Negative); Nitrite Urine Negative (Negative); Specific Gravity - Urine <= 1.005 (1.005-1.025); Urine Blood Negative (Negative); Urine Ketones Negative (Negative); Urine Protein Negative (Neg-Trace)
[2023-03-11 08:02] LABS: Amphetamine Screen Urine Not Detected (Not Detect); Barbiturates, Urine Not Detected (Not Detect); Benzodiazepines Screen Urine Not Detected (Not Detect); Cannabinoid Screen Urine POSITIVE (Not Detect); Cocaine Screen Urine Not Detected (Not Detect); Fentanyl, urine Not Detected (Not Detect); Opiate Screen Urine Not Detected (Not Detect); Phencyclidine Screen Urine Not Detected (Not Detect)
[2023-03-11 08:10] LABS: Anion Gap 10 (12-20); Blood Urea Nitrogen 12 mg/dL (9-16); Calcium 8.6 mg/dL (8.4-10.2); Carbon Dioxide 27 mmol/L (22-29); Chloride 99 mmol/L (96-108); Creatinine Clr Calc Pharmacy 145.2; Estimated Glomerular Filt Rate > 60; Glucose Random 103 mg/dL (60-115); Potassium 4.2 mmol/L (3.3-5.1); Sodium 132 mmol/L (135-145)
--- NOTE | 2023-03-11 09:41 | PC.NURSE ---
per patient he has a history of sleep apnea and does not use home O2 or bipap/cpap. while patient was sleeping his O2 sat decreased to mid 80s, pt was placed on 2L NC while he is here for sleep only to keep his O2 WNL.
--- NOTE | 2023-03-11 11:00 | PC.NURSE ---
pt currently sleeping, vss, call mak within reach, gauri osboren stopped in to see patient who kept dozing off on her while they were speaking, she stated she will reassess patient in a little while.
--- NOTE | 2023-03-11 12:04 | PC.NURSE ---
report given pt ambulating with security to the pod
--- NOTE | 2023-03-11 13:38 | PC.NURSE ---
in supplement to triage patient did attest eleanor cotant slept for a few days and [place], [place] as result, last had thc 2-3 days ago
== END 2023-03-11 14:05 | disposition home or self-care (01) ==
PROVIDERS: Emergency Medicine; Emergency Provider Emergency Medicine Emergency Medical Services
DX: F25.0 Schizoaffective disorder, bipolar type (principal); E86.0 Dehydration; Z91.148 Patient's other noncompliance with medication regimen for other reason; E87.1 Hypo-osmolality and hyponatremia; Z79.899 Other long term (current) drug therapy
CPT/HCPCS: 36415; 80048; 80053; 80164; 80307; 81003; 83735; 85025; 96360; 99284; 99285; S9485

== ENCOUNTER 2024-11-27 13:29 | Outpatient (REF) | payer MEDICARE, SELFPAY ==
--- NOTE | ~2024-11-27 | XR_ITS ---
CLINICAL HISTORY: CONTUSION OF LEFT FRONT WALL OF THORAX --- Additional Notes or Special Instructions: WO 4 view, chest and left ribs Comparison: None provided Findings: There are fractures in the 9th and 10th left ribs associated with partial callus formation. There is irregularity of the 6 left rib. There is a small left pleural effusion with adjacent airspace opacity. There is no pneumothorax. The heart size is normal. IMPRESSION: 1. Nondisplaced 9th and 10th left rib fractures with incomplete healing changes. 2. Age-indeterminate 6th left rib fracture with no significant displacement. 3. No pneumothorax. 4. Small left pleural effusion with adjacent atelectasis and/or infiltrate. This document has been electronically signed by: Rhea Kasper DO on 11/27/2024 18:30:38
--- OUTSIDE RECORDS SUMMARY | 2024-11-27 13:37 | XMS_ITS | Clinical Summary ---
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 Pt is unsure about if he has an allergy or not. Propranolol GI Intolerance/Nausea/Vomit ing Low 07/13/2024 Warfarin Itching Low 07/12/2020 Pt is unsure about if he has an allergy or not. Pt is unsure about if he has an allergy or not. Medications * This document contains information received from the source organization and may not represent a complete record from that organization. nicotine polacrilex (NICORETTE) 2 MG gumIndications:To bacco use disorder Apply 1 each (2 mg total) to the mouth or throat every 2 (two) hours as needed for smoking cessation. 40 tablet 11/11/19 24 Active Additional Information Patient not taking.Reason: Other, Reported on 10/12/2024 cholecalciferol (CHOLECALCIFEROL) 25 MCG (1000 UT) tabletIndications :Vitamin D insufficiency Take 2 tablets (2,000 Units total) by mouth daily. 60 tablet 11/11/19 24 Active OLANZapine (ZyPREXA) 15 MG tabletIndications :Bipolar I disorder, current or most recent episode manic, severe with mood-congruent psychotic features (HCC) Take 1 tablet (15 mg total) by mouth daily. 30 tablet 11/11/19 24 Active psyllium (METAMUCIL) 58.12 % Pack packetIndications :Constipation, unspecified constipation type Take 1 packet by mouth daily. 30 packet 11/11/19 24 Active Additional Information Patient not taking.Reason: Other, Reported on 10/12/2024 divalproex (DEPAKOTE) [address] Take 2 tablets (1,000 mg total) by mouth 2 times a day. Active albuterol (PROVENTIL HFA; VENTOLIN HFA) 108 (90 Base) MCG/ACT inhalerIndication s:Mild intermittent asthma without complication Inhale 2 puffs 4 times daily (every 6 hours) as needed for wheezing. 1 each 07/13/19 25 Active haloperidol (HALDOL) 1 MG tablet TAKE ONE (1) TABLET BY MOUTH DAILY AND TWO (2) TABLETS AT BEDTIME 09/18/19 25 Active acetaminophen (TYLENOL) 325 MG tabletIndications :Rib pain Take 2 tablets (650 mg total) by mouth 4 times daily (every 6 hours) as needed for mild pain. 30 tablet 10/15/19 25 Active atenolol (TENORMIN) 50 MG tabletIndications :Primary hypertension Take 1 tablet (50 mg total) by mouth daily. 30 tablet 10/15/19 25 Active OLANZapine (ZyPREXA) 10 MG tabletIndications :Bipolar I disorder, current or most recent episode manic, severe with mood-congruent psychotic features (HCC) Take 1 tablet (10 mg total) by mouth nightly. 30 tablet 10/15/19 25 Active OLANZapine (ZyPREXA) 20 MG tabletIndications :Bipolar I disorder, current or most recent episode manic, severe with mood-congruent psychotic features (HCC) Take 1 tablet (20 mg total) by mouth nightly. 30 tablet 10/15/19 25 Active risperiDONE (RisperDAL) 3 MG tablet Take 1 tablet (3 mg total) by mouth 2 (two) times a day. 14 tablet 07/03/19 24 024 Discontin ued(Stop Taking at Discharge ) Active Problems Problem Noted Date Diagnosed Date Acute blood loss anemia 10/12/2024 Constipation 11/11/2023 Paranoid behavior 07/01/2023 Obstructive sleep apnea 05/06/2023 05/06/20 Tobacco use disorder 05/06/2023 05/06/2023 Bipolar I disorder, current or most recent episode manic, severe with mood-congruent psychotic features 05/01/2023 Paranoia 04/30/2023 Hypertension Asthma HLD (hyperlipidemia) Vitamin D insufficiency Encounters Date Type Department Care Team Description 10/16/2024 Resource Coordination [facility] [address] [place] [address] Rosemary Grewal 10/11/2024 2:25 PM EDT - 10/14/2024 11:11 AM EDT Hospital Encounter [address] [address] Randell Adler MD Joseph, Kesley, MD Hebbal, Pooja, MD Pokhrel, MD Juli Fall (Primary Dx); Rib pain; Pleural effusion; Anemia; Hyponatremia; Primary hypertension; Bipolar I disorder, current or most recent episode manic, severe with mood-congruent psychotic features (HCC) Discharge Disposition: Home or Self Care 10/11/2024 Travel from Last 3 Months Immunizations Immunization Administration Dates Next Due Influenza, Quadrivalent (FLU ARIX, AFLURIA, FLULAVAL, FLUZONE) Preservative Free IM 05/21/2023(),05/02/2023() Family History Medical History Relation Name Comments Schizophrenia Brother Relation Name Status Comments Brother Social History Tobacco Use Types Packs/Day Years Used Date Smoking Tobacco: Every Day Cigarettes Tobacco Cessation:Ready to Q uit: Not Asked; Counseling Given: Not Answered Comments:none [facility] Utilities Answer Date Recorded In the past 12 months has e [employer], gas, oil, or water company threatened to shut off services in your home? Yes 10/13/2024 AUDIT-C Answer Date Recorded Q1: How often do you have a drink containing alc ohol? Monthly or less 10/11/2024 Q2: How many drinks containi ng alcohol do you have on a typical day when you are drinking? 3 or 4 10/11/2024 Q3: How often do you have si x or more drinks on one occasion? Less than monthly 10/11/2024 Overall Financial Resource Strain (CARDIA) Answe r Date Recorded How hard is it for you to pa y for the very basics like food, housing, medical care, and heating? Very hard 10/13/2024 PHQ-2 Answer Date Recorded PHQ-2 Total Score 0 05/02/2023 Hunger Vital Sign Answer Date Recorded Within the past 12 months, y ou worried that your food would run out before you got the money to buy more. Sometimes true Within the past 12 months, t he food you bought just didn't last and you didn't have money to get more. Sometimes true 11/2024 PRAPARE - Transportation Answer Date Re corded In the past 12 months, has l ack of transportation kept you from medical appointments or from getting medications? No 11/2024 In the past 12 months, has l ack of transportation kept you from meetings, work, or from getting things needed for daily living? No 10/13/2024 Housing Stability Vital Sign Answer Noam e Recorded In the last 12 months, was t here a time when you were not able to pay the mortgage or rent on time? No 10/13/2024 In the past 12 months, how m any times have you moved where you were living? 0 10/13/2024 At any time in the past 12 m [place], were you homeless or living in a long term (including now)? No 10/13/2024 Sex and Gender Information Value Date Recorded Sex Assigned at Male 04/30/2023 4:50 PM EST Legal Sex Male 10:33 AM EDT Gender Identity Male 04/30/2023 4:50 PM EST Sexual Orientation Heterosexual (straight) 04/30 4:50 PM EST Last Filed Vital Signs Vital Sign Reading Time Taken Comments Blood Pressure 118/72 10/14/2024 8:00 AM EDT Pulse 64 10/14/2024 8:00 AM EDT Temperature 35.8 C (96.4 F) 10/14/2024 8:00 AM EDT Respiratory Rate 18 10/14/2024 8:00 AM EDT Oxygen Saturation 94% 10/14/2024 8:00 AM EDT Inhaled Oxygen Concentration - - Weight 97 kg (213 lb 13.5 oz) 10/12/2024 8:23 PM EDT Height 182 cm (5' 11.65 ) 10/12/2024 8:23 PM EDT Body Mass Index 29.28 10/12/2024 8:23 PM EDT Plan of Treatment Health Maintenance Due Date Last Done Comments Hepatitis C Virus Screening 1964 HIV Screening 1977 DTaP/Tdap/Td Vaccines (1 - Tdap) 01/01/1984 Hepatitis B Vaccines (1 of 3 - 19+ 3-dose series) 12/09 Pneumococcal Vaccines 50+ (1 of 2 - PCV) 01/01/1984 Colonoscopy 2009 Zoster (Shingles) Vaccine (1 of 2) 2014 COVID-19 Vaccine (1 - 2023- season) 2024 Influenza Vaccine 01/08/2025 Procedures Procedure Name Priority Date/Time Associated Diagnosis Comments COMPLETE BLOOD COUNT, WITHOUT DIFFERENTIAL Routine 10/14/2024 6:22 AM EDT BASIC METABOLIC PANEL Routine 10/14/2024 6:22 AM EDT PARTIAL THROMBOPLASTIN TIME (PTT) Routine 10/13/2024 6:30 AM EDT PROTIME-INR Routine 10/13/2024 6:30 AM EDT COMPLETE BLOOD COUNT, WITHOUT DIFFERENTIAL Routine 10/13/2024 6:30 AM EDT BASIC METABOLIC PANEL Routine 10/13/2024 6:30 AM EDT MAGNESIUM Routine 10/13/2024 6:30 AM EDT HEPATIC FUNCTION PANEL STAT 7:05 AM EDT BASIC METABOLIC PANEL STAT 10/12/2024 7:05 AM EDT MAGNESIUM STAT 10/12/2024 7:05 AM EDT COMPLETE BLOOD COUNT, WITHOUT DIFFERENTIAL STAT 10/12/2024 7:05 AM EDT XR CHEST 1 VIEW-PORTABLE Timed 10/12/2024 5:56 AM EDT SODIUM STAT 10/12/2024 5:09 AM EDT COMPLETE BLOOD COUNT, WITHOUT DIFFERENTIAL STAT 10/12/2024 2:[address] CERVICAL SPINE W/O CONTRAST STAT 10/12/2024 1:[address] RECONSTRUCTED DATA WO/CONTRAST- THORACIC / LUMBAR SPINE (RAD USE ONLY) STAT 10/12/2024 1:[address] CHEST/ABDOMEN+PELVIS W/CONTRAST STAT 10/12/2024 1:05 AM EDT HEMOGLOBIN AND HEMATOCRIT STAT 10/11/2024 8:[address] HEAD W/O CONTRAST STAT 10/11/2024 7:38 PM EDT URINALYSIS WITH REFLEX TO MICROSCOPIC AND CULTURE STAT 10/11/2024 6:47 PM EDT OSMOLALITY, URINE STAT 10/11/2024 6:4 7 PM EDT CHLORIDE, URINE, RANDOM STAT 10/12/19 25 6:47 PM EDT POTASSIUM, URINE, RANDOM STAT 10/11/2024 6:47 PM EDT SODIUM, URINE, RANDOM STAT 10/11/2024 6:47 PM EDT ECG 12-LEAD STAT 10/11/2024 2:[address] THORAX W/O CONTRAST STAT 2:47 PM EDT OSMOLALITY STAT 10/11/2024 2:38 PM EDT BASIC METABOLIC PANEL STAT 10/11/2024 2:38 PM EDT COMPLETE BLOOD COUNT, WITH DIFFERENTIAL STAT 10/11/2024 2:38 PM EDT from Last 3 Months Results * (ABNORMAL) COMPLETE BLOOD COUNT, WITHOUT DIFFERENTIAL (10/14/2024 6:22 AM EDT) Only the most recent of4 resultswithin the time period is included. White Blood Cell Count 7.0 4.0 - 11.0 Thou/uL 10/14/2024 7:38 AM [facility] Platelet Count 236 150 - 450 Thou/uL 10/14/2024 7:38 AM [facility] Hemoglobin 8.6(L) 13.0 - 17.7 g/dL 10/14/2024 7:38 AM [facility] Hematocrit 23.9(L) 39.0 - 54.0 % 10/14/2024 7:38 AM [facility] Red Blood Cell Count 2.58(L) 4.50 - 6.20 Mil/uL 10/14/2024 7:38 AM [facility] MCV 93 80 - 100 fL 10/14/2024 7:38 AM [facility] MCH 33.3(H) 27.0 - 31.0 pg 10/14/2024 7:38 AM [facility] MCHC 36.0 30.0 - 36.0 g/dL 10/14/2024 7:38 AM [facility] RDW 12.6 11.5 - 14.5 % 10/14/2024 7:38 AM [facility] MPV 8.8 7.5 - 12.5 fL 10/14/2024 7:38 AM [facility] nRBC 0.4(H) 0.0 - 0.1 /100 WBC 10/14/2024 7:38 AM [facility] nRBC, Absolute 0.03(H) 0.00 - 0.02 Thou/uL 10/14/2024 7:38 AM [facility] Blood Blood specimen / Unknown 10/14/2024 6:22 AM EDT 10/14/2024 7:19 AM EDT Juli Castro MD LAB BLOOD ORDERABLES Final Resu lt [facility] [address] [place] [address], [address] [address] * (ABNORMAL) BASIC METABOLIC PANEL (10/14/2024 6:22 AM EDT) Only the most recent of4 resultswithin the time period is included. Glucose 71 65 - 99 mg/dL 10/14/2024 8:04 AM [facility] Comment:Fasting: <100 mg/dL, Non-Fasting: <200 mg/dL (ADA 2005) Blood Urea Nitrogen (BUN) 12 8 - 21 mg/dL 10/14/2024 8:04 AM [facility] Creatinine 0.7 0.5 - 1.3 mg/dL 10/14/2024 8:04 AM [facility] eGFR >90 >59 10/14/2024 8:04 AM [facility] Comment:CKD-EPI (2020) in mL /min/1.73 sq meters. Sodium 132(L) 136 - 145 mmol/L 10/14/2024 8:04 AM [facility] Potassium 4.4 3.4 - 5.3 mmol/L 10/14/2024 8:04 AM [facility] Chloride 95(L) 98 - 107 mmol/L 10/14/2024 8:04 AM [facility] CO2 27 22 - 33 mmol/L 10/14/2024 8:04 AM [facility] Anion Gap 10 7 - 17 10/14/2024 8:04 AM [facility] Calcium 8.4(L) 8.7 - 10.5 mg/dL 10/14/2024 8:04 AM [facility] BUN/Creatinine Ratio 17 10.0 - 25.0 Ratio 10/14/2024 8:04 AM EDT [facility] Blood Blood specimen / Unknown 10/14/2024 6:22 AM EDT 10/14/2024 7:19 AM EDT Juli Castro MD LAB BLOOD ORDERABLES Final Resu lt Performing Organization Address [facility] [place] [address], [place] [address] * Partial Thromboplastin Time (PTT) (10/13/2024 6:30 AM EDT) Anticoagulant NO ANTI COAGULANT MEDS 10/12/2024 11:01 PM EDT [facility] Partial Thromboplastin Time (PTT) 32 25 - 36 seconds 10/13/2024 7:53 AM EDT [facility] Blood Blood specimen / Unknown 10/13/2024 6:30 AM EDT 10/13/2024 7:27 AM EDT Karyn Hilliard MD LAB BLOOD ORDERABLES Final Resul t Performing Organization Address [facility] [place] [address], [place] [address] * Protime-INR (10/13/2024 6:30 AM EDT) Anticoagulant NO ANTI COAGULANT MEDS 10/12/2024 11:01 PM EDT [facility] Prothrombin Time (PT) 10.9 10.0 - 13.5 seconds 10/13/2024 7:53 AM EDT [facility] INR 0.9 10/13/2024 7:53 AM EDT [facility] Comment:INR Therapeutic Rang es: Standard dose anticoagulant 2.0 to 3.0, High dose anticoagulant 2.5-3.5. Blood Blood specimen / Unknown 10/13/2024 6:30 AM EDT 10/13/2024 7:27 AM EDT us Karyn Hilliard MD LAB BLOOD ORDERABLES Final Resul t Performing Organization Address City/[facility]/[place] [address], [place] [address] * MAGNESIUM (10/13/2024 6:30 AM EDT) Only the most recent of2 resultswithin the time period is included. Magnesium 2.0 1.6 - 2.7 mg/dL 10/13/2024 8:00 AM EDT [facility] Blood Blood specimen / Unknown 10/13/2024 6:30 AM EDT 10/13/2024 7:27 AM EDT us Karyn Hilliard MD LAB BLOOD ORDERABLES Final Resul t Performing Organization Address [facility] [place] [address], [place] [address] * (ABNORMAL) HEPATIC FUNCTION PANEL (10/12/2024 7:05 AM EDT) Alkaline Phosphatase 39(L) 45 - 128 U/L 10/12/2024 3:45 PM EDT [facility] Aspartate Aminotrans (AST) 32 10 - 55 U/L 10/12/2024 3:45 PM EDT [facility] Alanine Aminotrans (ALT) 22 10 - 55 U/L 10/12/2024 3:45 PM EDT [facility] Bilirubin, Total 0.6 0.2 - 1.0 mg/dL 10/12/2024 3:45 PM EDT [facility] Protein, Total 5.5(L) 6.3 - 8.3 g/dL 10/12/2024 3:45 PM EDT [facility] Albumin 3.6 3.5 - 5.0 g/dL 10/12/2024 3:45 PM EDT [facility] Bilirubin, Direct 0.3(H) 0 - 0.2 mg/dL 10/12/2024 3:45 PM EDT [facility] Globulin 1.9 1.5 - 3.9 g/dL 10/12/2024 3:45 PM EDT [facility] Albumin/Globulin Ratio 1.9 1.0 - 3.0 Ratio 10/12/2024 3:45 PM EDT [facility] 10/12/2024 7:05 AM EDT 10/12/2024 7:35 AM EDT Amber Le MD LAB BLOOD ORDERABLES Final Resu lt [facility] [address] [place] [address], [facility] [address] [place] [address] * XR Chest 1 view-Portable (10/12/2024 5:56 AM EDT) Anatomical Region Laterality Modality Chest Computed Radiogr aphy 10/12/2024 5:19 AM EDT Impressions 10/12/2024 8:26 AM EDT 1. Small left pleural effusion is relatively stable in size when accounting for differences in imaging technique. 2. Hazy left basilar opacities and partially visualized right basilar opacities, favored to represent atelectasis. No focal consolidation. Interpreted by: Rhea Blake MD Broomcorn Grader I personally reviewed the images and the resident's preliminary report and AGREE with the report as it is now presented ([email or web address]). Narrative 10/12/2024 8:26 AM EDT EXAMINATION: XR CHEST CLINICAL INFORMATION: eval stability of left effusion COMPARISON: CT chest from same day TECHNIQUE: Frontal view of the chest was obtained. FINDINGS: Lungs are hypoexpanded. The right lung is partially outside the visual field. Small left pleural effusion is relatively stable in size when accounting for differences in imaging technique. Hazy left basilar opacities and partially visualized right basilar opacities. Hazy retrocardiac opacities. No pneumothorax. Cardiomediastinal silhouette is similar to prior. No acute osseous findings. Procedure Note Alonzo Painter MD - 10/12/2024 EXAMINATION: XR CHEST CLINICAL INFORMATION: eval stability of left effusion COMPARISON: CT chest from same day TECHNIQUE: Frontal view of the chest was obtained. FINDINGS: Lungs are hypoexpanded. The right lung is partially outside the visual field. Small left pleural effusion is relatively stable in size when accounting for differences in imaging technique. Hazy left basilar opacities and partially visualized right basilar opacities. Hazy retrocardiac opacities. No pneumothorax. Cardiomediastinal silhouette is similar to prior. No acute osseous findings. IMPRESSION: 1. Small left pleural effusion is relatively stable in size when accounting for differences in imaging technique. 2. Hazy left basilar opacities and partially visualized right basilar opacities, favored to represent atelectasis. No focal consolidation. Interpreted by: Rhea Blake MD [employer]roomcorn Grader I personally reviewed the images and the resident's preliminary report and AGREE with the report as it is now presented ([email or web address]). Letha DELACRUZ IMG DIAGNOSTIC IMAGING ORDERA BLES Final Result * (ABNORMAL) Sodium (10/12/2024 5:09 AM EDT) Sodium 127(L) 136 - 145 mmol/L 10/12/2024 6:10 AM EDT [facility] Blood Blood specimen / Unknown 10/12/2024 5:09 AM EDT 10/12/2024 5:40 AM EDT Amber Le MD LAB BLOOD ORDERABLES Final Resu lt [address] [address], [address] [address] * CT Reconstructed Data Without IV Contrast - Thoracic / Lumbar Spine (10/12/2024 1:05 AM EDT) Anatomical Region Laterality Modality T-spine, L-spine Computed Tomogr aphy 10/12/2024 12:3 4 AM EDT Impressions 10/12/2024 4:31 AM EDT 1. Large hematoma in the left lateral abdomen appearing appears contiguous with the abdominal wall musculature, most consistent with intramuscular hematoma. The hematoma measures up to 13.2 cm. No evidence of active arterial bleed. Small volume nonorganized blood products are observed surrounding the collection and tracking into the left pelvic sidewall. 2. Unchanged moderate left hemothorax. 3. Displaced left-sided rib fractures as detailed above. Fractures of the posterolateral eighth, ninth and 10th left ribs. 4. No fracture or malalignment in the thoracolumbar spine. 5. Few prominent and mildly enlarged pelvic lymph nodes, likely reactive. 6. Similar aneurysmal dilation of the ascending thoracic aorta measuring up to 4.9 cm in AP dimension. This critical result was discussed with Dorie Mariano DO at 2:55 AM on 10/12/2024 and it was ascertained that the content and urgency of the report was understood at the time of direct communication. Interpreted by: Rhea Blake MD Broomcorn Grader I personally reviewed the images and the resident's preliminary report and AGREE with the report as it is now presented ([email or web address]). Narrative 10/12/2024 4:31 AM EDT EXAMINATION: CT CHEST, ABDOMEN AND PELVIS WITH CONTRAST CT THORACIC AND LUMBAR SPINE WITHOUT CONTRAST (REFORMATS) CLINICAL INFORMATION: 58 years old Male with ?hemothorax on the left, ? rib fractures, abdominal pain, fall, decreasing hemoglobin COMPARISON: CT chest 10/11/2024 TECHNIQUE: Multidetector volumetric imaging was performed from the thoracic inlet through the pubic symphysis following the administration of: Oral contrast: No Intravenous contrast: 130 mL Omnipaque 350 No contrast reaction reported Sagittal and coronal reformatted images were obtained on the technologist workstation. In addition, thin section, high resolution reconstruction, targeted reformatted images through the thoracic and lumbar spine were obtained with coronal and sagittal high resolution reformatted images as well. This CT examination was performed using dose optimization techniques as appropriate, variously including the following: *Automated exposure control *Adjustment of mA and/or kV according to patient size (this includes techniques or standardized protocols for targeted exams where dose is matched to indication/reason for exam; i.e. extremities or head) *Use of iterative reconstruction technique Total exam dose-length product: 1151.3 mGy-cm FINDINGS: CHEST: VASCULAR: No evidence of dissection or traumatic aortic injury. Similar fusiform aneurysmal dilation of the ascending thoracic aorta measuring up to 4.9 cm in AP dimension. The central pulmonary arteries enhance normally. AORTIC ISTHMUS: Normal. MEDIASTINUM: No mediastinal hematoma. No pneumomediastinum. No pericardial effusion. No hilar or mediastinal lymphadenopathy. LUNG: Bandlike atelectasis along the right minor fissure and mild dependent bibasilar atelectasis. Rest 3 motion artifact otherwise limits assessment. No focal consolidation. PLEURA: Unchanged moderate left hemothorax. No pneumothorax. CHEST WALL/AXILLA: Left gynecomastia. No axillary or internal mammary lymphadenopathy ABDOMEN/PELVIS: LIVER AND BILIARY TREE: The liver is normal in size, shape, and attenuation. No biliary ductal dilatation. No suspicious liver lesions. GALLBLADDER: The gallbladder is surgically absent. PANCREAS: Normal; no mass or surrounding fluid. SPLEEN: Normal size. No focal lesion. ADRENAL GLANDS: Nodular contour of the left adrenal gland without focal lesion identified. KIDNEYS AND URETERS: The kidneys are normal in size, shape, and attenuation. No hydronephrosis, hydroureter, or calculi. Bilateral subcentimeter hypodensities, too small to characterize but likely represent simple cysts. BLADDER: Partially decompressed and contrast filled. GASTROINTESTINAL TRACT: Stomach and small bowel are nondilated. Anastomotic suture line in the distal sigmoid colon. The colon is largely decompressed, limiting assessment for wall thickening. No pericolonic inflammatory changes. Appendix is not identified. No inflammatory changes in the right lower quadrant to suggest appendicitis. PERITONEUM/RETROPERITONEUM: Large hyperattenuating collection in the left lateral abdomen which appears contiguous with the lateral abdominal wall musculature, including the transversus abdominis and internal oblique musculature. This collection measures approximately 13.2 x 7.6 x 12.3 cm (AP by TV by CC). No evidence of blush within the collection to suggest active bleed. There is associated nonorganized hyperattenuating fluid and stranding along the left paracolic gutter extending from the collection and anterior to the psoas and iliacus musculature into the left pelvic sidewall. VASCULAR STRUCTURES: No evidence of aortic or iliac injury. The inferior vena cava is intact. ACTIVE BLEEDING: No. LYMPH NODES: Mildly enlarged 1.3 cm left common iliac lymph node ([id number]). Additional appearance of few right external iliac enlarged lymph nodes, for example a 1.1 cm lymph node ([id number]). No bulky lymphadenopathy. PELVIC VISCERA: Prostate is enlarged measuring up to 7 cm in transverse dimension. FREE FLUID: Small volume hemoperitoneum as described above. ABDOMINAL WALL: Small fat-containing bilateral inguinal hernias. THORACIC AND LUMBAR SPINE: No acute fracture or malalignment in the thoracolumbar spine. Normal sagittal alignment of the thoracic and lumbar spine. Vertebral body heights are normal. Posterior elements are intact. Mild multilevel degenerative spondylosis in the thoracolumbar spine. OTHER OSSEOUS STRUCTURES: The imaged portions of the clavicles, scapulae, and proximal humeri are intact. Displaced fractures of the left eighth and ninth lateral ribs and the left 10th posterolateral rib. Sternum is intact. No sacral or pelvic fracture. The hips and imaged portions of the proximal femurs are intact. Procedure Note Jim Song MD - 10/12/2024 EXAMINATION: CT CHEST, ABDOMEN AND PELVIS WITH CONTRAST CT THORACIC AND LUMBAR SPINE WITHOUT CONTRAST (REFORMATS) CLINICAL INFORMATION: 58 years old Male with ?hemothorax on the left, ? rib fractures, abdominal pain, fall, decreasing hemoglobin COMPARISON: CT chest 10/11/2024 TECHNIQUE: Multidetector volumetric imaging was performed from the thoracic inlet through the pubic symphysis following the administration of: Oral contrast: No Intravenous contrast: 130 mL Omnipaque 350 No contrast reaction reported Sagittal and coronal reformatted images were obtained on the technologist workstation. In addition, thin section, high resolution reconstruction, targeted reformatted images through the thoracic and lumbar spine were obtained with coronal and sagittal high resolution reformatted images as well. This CT examination was performed using dose optimization techniques as appropriate, variously including the following: *Automated exposure control *Adjustment of mA and/or kV according to patient size (this includes techniques or standardized protocols for targeted exams where dose is matched to indication/reason for exam; i.e. extremities or head) *Use of iterative reconstruction technique Total exam dose-length product: 1151.3 mGy-cm FINDINGS: CHEST: VASCULAR: No evidence of dissection or traumatic aortic injury. Similar fusiform aneurysmal dilation of the ascending thoracic aorta measuring up to 4.9 cm in AP dimension. The central pulmonary arteries enhance normally. AORTIC ISTHMUS: Normal. MEDIASTINUM: No mediastinal hematoma. No pneumomediastinum. No pericardial effusion. No hilar or mediastinal lymphadenopathy. LUNG: Bandlike atelectasis along the right minor fissure and mild dependent bibasilar atelectasis. Rest 3 motion artifact otherwise limits assessment. No focal consolidation. PLEURA: Unchanged moderate left hemothorax. No pneumothorax. CHEST WALL/AXILLA: Left gynecomastia. No axillary or internal mammary lymphadenopathy ABDOMEN/PELVIS: LIVER AND BILIARY TREE: The liver is normal in size, shape, and attenuation. No biliary ductal dilatation. No suspicious liver lesions. GALLBLADDER: The gallbladder is surgically absent. PANCREAS: Normal; no mass or surrounding fluid. SPLEEN: Normal size. No focal lesion. ADRENAL GLANDS: Nodular contour of the left adrenal gland without focal lesion identified. KIDNEYS AND URETERS: The kidneys are normal in size, shape, and attenuation. No hydronephrosis, hydroureter, or calculi. Bilateral subcentimeter hypodensities, too small to characterize but likely represent simple cysts. BLADDER: Partially decompressed and contrast filled. GASTROINTESTINAL TRACT: Stomach and small bowel are nondilated. Anastomotic suture line in the distal sigmoid colon. The colon is largely decompressed, limiting assessment for wall thickening. No pericolonic inflammatory changes. Appendix is not identified. No inflammatory changes in the right lower quadrant to suggest appendicitis. PERITONEUM/RETROPERITONEUM: Large hyperattenuating collection in the left lateral abdomen which appears contiguous with the lateral abdominal wall musculature, including the transversus abdominis and internal oblique musculature. This collection measures approximately 13.2 x 7.6 x 12.3 cm (AP by TV by CC). No evidence of blush within the collection to suggest active bleed. There is associated nonorganized hyperattenuating fluid and stranding along the left paracolic gutter extending from the collection and anterior to the psoas and iliacus musculature into the left pelvic sidewall. VASCULAR STRUCTURES: No evidence of aortic or iliac injury. The inferior vena cava is intact. ACTIVE BLEEDING: No. LYMPH NODES: Mildly enlarged 1.3 cm left common iliac lymph node ([id number]). Additional appearance of few right external iliac enlarged lymph nodes, for example a 1.1 cm lymph node (308:1000). No bulky lymphadenopathy. PELVIC VISCERA: Prostate is enlarged measuring up to 7 cm in transverse dimension. FREE FLUID: Small volume hemoperitoneum as described above. ABDOMINAL WALL: Small fat-containing bilateral inguinal hernias. THORACIC AND LUMBAR SPINE: No acute fracture or malalignment in the thoracolumbar spine. Normal sagittal alignment of the thoracic and lumbar spine. Vertebral body heights are normal. Posterior elements are intact. Mild multilevel degenerative spondylosis in the thoracolumbar spine. OTHER OSSEOUS STRUCTURES: The imaged portions of the clavicles, scapulae, and proximal humeri are intact. Displaced fractures of the left eighth and ninth lateral ribs and the left 10th posterolateral rib. Sternum is intact. No sacral or pelvic fracture. The hips and imaged portions of the proximal femurs are intact. IMPRESSION: 1. Large hematoma in the left lateral abdomen appearing appears contiguous with the abdominal wall musculature, most consistent with intramuscular hematoma. The hematoma measures up to 13.2 cm. No evidence of active arterial bleed. Small volume nonorganized blood products are observed surrounding the collection and tracking into the left pelvic sidewall. 2. Unchanged moderate left hemothorax. 3. Displaced left-sided rib fractures as detailed above. Fractures of the posterolateral eighth, ninth and 10th left ribs. 4. No fracture or malalignment in the thoracolumbar spine. 5. Few prominent and mildly enlarged pelvic lymph nodes, likely reactive. 6. Similar aneurysmal dilation of the ascending thoracic aorta measuring up to 4.9 cm in AP dimension. This critical result was discussed with Dorie Mariano DO at 2:55 AM on 10/12/2024 and it was ascertained that the content and urgency of the report was understood at the time of direct communication. Interpreted by: Rhea Blake MD Broom[employer] Grader I personally reviewed the images and the resident's preliminary report and AGREE with the report as it is now presented ([email or web address]). us Randell Adler MD IMG CT ORDERABLES Final R esult * CT Chest/abdomen+pelvis w/contrast (10/12/2024 1:05 AM EDT) Anatomical Region Laterality Modality Chest, Abdomen, Pelvis Computed Tomography 10/12/2024 12:3 4 AM EDT Impressions 10/12/2024 4:31 AM EDT 1. Large hematoma in the left lateral abdomen appearing appears contiguous with the abdominal wall musculature, most consistent with intramuscular hematoma. The hematoma measures up to 13.2 cm. No evidence of active arterial bleed. Small volume nonorganized blood products are observed surrounding the collection and tracking into the left pelvic sidewall. 2. Unchanged moderate left hemothorax. 3. Displaced left-sided rib fractures as detailed above. Fractures of the posterolateral eighth, ninth and 10th left ribs. 4. No fracture or malalignment in the thoracolumbar spine. 5. Few prominent and mildly enlarged pelvic lymph nodes, likely reactive. 6. Similar aneurysmal dilation of the ascending thoracic aorta measuring up to 4.9 cm in AP dimension. This critical result was discussed with Dorie Mariano DO at 2:55 AM on 10/12/2024 and it was ascertained that the content and urgency of the report was understood at the time of direct communication. Interpreted by: Rhea Blake MD [employer]room[employer] Grader I personally reviewed the images and the resident's preliminary report and AGREE with the report as it is now presented ([email or web address]). Narrative 10/12/2024 4:31 AM EDT EXAMINATION: CT CHEST, ABDOMEN AND PELVIS WITH CONTRAST CT THORACIC AND LUMBAR SPINE WITHOUT CONTRAST (REFORMATS) CLINICAL INFORMATION: 58 years old Male with ?hemothorax on the left, ? rib fractures, abdominal pain, fall, decreasing hemoglobin COMPARISON: CT chest 10/11/2024 TECHNIQUE: Multidetector volumetric imaging was performed from the thoracic inlet through the pubic symphysis following the administration of: Oral contrast: No Intravenous contrast: 130 mL Omnipaque 350 No contrast reaction reported Sagittal and coronal reformatted images were obtained on the technologist workstation. In addition, thin section, high resolution reconstruction, targeted reformatted images through the thoracic and lumbar spine were obtained with coronal and sagittal high resolution reformatted images as well. This CT examination was performed using dose optimization techniques as appropriate, variously including the following: *Automated exposure control *Adjustment of mA and/or kV according to patient size (this includes techniques or standardized protocols for targeted exams where dose is matched to indication/reason for exam; i.e. extremities or head) *Use of iterative reconstruction technique Total exam dose-length product: 1151.3 mGy-cm FINDINGS: CHEST: VASCULAR: No evidence of dissection or traumatic aortic injury. Similar fusiform aneurysmal dilation of the ascending thoracic aorta measuring up to 4.9 cm in AP dimension. The central pulmonary arteries enhance normally. AORTIC ISTHMUS: Normal. MEDIASTINUM: No mediastinal hematoma. No pneumomediastinum. No pericardial effusion. No hilar or mediastinal lymphadenopathy. LUNG: Bandlike atelectasis along the right minor fissure and mild dependent bibasilar atelectasis. Rest 3 motion artifact otherwise limits assessment. No focal consolidation. PLEURA: Unchanged moderate left hemothorax. No pneumothorax. CHEST WALL/AXILLA: Left gynecomastia. No axillary or internal mammary lymphadenopathy ABDOMEN/PELVIS: LIVER AND BILIARY TREE: The liver is normal in size, shape, and attenuation. No biliary ductal dilatation. No suspicious liver lesions. GALLBLADDER: The gallbladder is surgically absent. PANCREAS: Normal; no mass or surrounding fluid. SPLEEN: Normal size. No focal lesion. ADRENAL GLANDS: Nodular contour of the left adrenal gland without focal lesion identified. KIDNEYS AND URETERS: The kidneys are normal in size, shape, and attenuation. No hydronephrosis, hydroureter, or calculi. Bilateral subcentimeter hypodensities, too small to characterize but likely represent simple cysts. BLADDER: Partially decompressed and contrast filled. GASTROINTESTINAL TRACT: Stomach and small bowel are nondilated. Anastomotic suture line in the distal sigmoid colon. The colon is largely decompressed, limiting assessment for wall thickening. No pericolonic inflammatory changes. Appendix is not identified. No inflammatory changes in the right lower quadrant to suggest appendicitis. PERITONEUM/RETROPERITONEUM: Large hyperattenuating collection in the left lateral abdomen which appears contiguous with the lateral abdominal wall musculature, including the transversus abdominis and internal oblique musculature. This collection measures approximately 13.2 x 7.6 x 12.3 cm (AP by TV by CC). No evidence of blush within the collection to suggest active bleed. There is associated nonorganized hyperattenuating fluid and stranding along the left paracolic gutter extending from the collection and anterior to the psoas and iliacus musculature into the left pelvic sidewall. VASCULAR STRUCTURES: No evidence of aortic or iliac injury. The inferior vena cava is intact. ACTIVE BLEEDING: No. LYMPH NODES: Mildly enlarged 1.3 cm left common iliac lymph node ([id number]). Additional appearance of few right external iliac enlarged lymph nodes, for example a 1.1 cm lymph node (308:1000). No bulky lymphadenopathy. PELVIC VISCERA: Prostate is enlarged measuring up to 7 cm in transverse dimension. FREE FLUID: Small volume hemoperitoneum as described above. ABDOMINAL WALL: Small fat-containing bilateral inguinal hernias. THORACIC AND LUMBAR SPINE: No acute fracture or malalignment in the thoracolumbar spine. Normal sagittal alignment of the thoracic and lumbar spine. Vertebral body heights are normal. Posterior elements are intact. Mild multilevel degenerative spondylosis in the thoracolumbar spine. OTHER OSSEOUS STRUCTURES: The imaged portions of the clavicles, scapulae, and proximal humeri are intact. Displaced fractures of the left eighth and ninth lateral ribs and the left 10th posterolateral rib. Sternum is intact. No sacral or pelvic fracture. The hips and imaged portions of the proximal femurs are intact. Procedure Note Jim Song MD - 10/12/2024 EXAMINATION: CT CHEST, ABDOMEN AND PELVIS WITH CONTRAST CT THORACIC AND LUMBAR SPINE WITHOUT CONTRAST (REFORMATS) CLINICAL INFORMATION: 58 years old Male with ?hemothorax on the left, ? rib fractures, abdominal pain, fall, decreasing hemoglobin COMPARISON: CT chest 10/11/2024 TECHNIQUE: Multidetector volumetric imaging was performed from the thoracic inlet through the pubic symphysis following the administration of: Oral contrast: No Intravenous contrast: 130 mL Omnipaque 350 No contrast reaction reported Sagittal and coronal reformatted images were obtained on the technologist workstation. In addition, thin section, high resolution reconstruction, targeted reformatted images through the thoracic and lumbar spine were obtained with coronal and sagittal high resolution reformatted images as well. This CT examination was performed using dose optimization techniques as appropriate, variously including the following: *Automated exposure control *Adjustment of mA and/or kV according to patient size (this includes techniques or standardized protocols for targeted exams where dose is matched to indication/reason for exam; i.e. extremities or head) *Use of iterative reconstruction technique Total exam dose-length product: 1151.3 mGy-cm FINDINGS: CHEST: VASCULAR: No evidence of dissection or traumatic aortic injury. Similar fusiform aneurysmal dilation of the ascending thoracic aorta measuring up to 4.9 cm in AP dimension. The central pulmonary arteries enhance normally. AORTIC ISTHMUS: Normal. MEDIASTINUM: No mediastinal hematoma. No pneumomediastinum. No pericardial effusion. No hilar or mediastinal lymphadenopathy. LUNG: Bandlike atelectasis along the right minor fissure and mild dependent bibasilar atelectasis. Rest 3 motion artifact otherwise limits assessment. No focal consolidation. PLEURA: Unchanged moderate left hemothorax. No pneumothorax. CHEST WALL/AXILLA: Left gynecomastia. No axillary or internal mammary lymphadenopathy ABDOMEN/PELVIS: LIVER AND BILIARY TREE: The liver is normal in size, shape, and attenuation. No biliary ductal dilatation. No suspicious liver lesions. GALLBLADDER: The gallbladder is surgically absent. PANCREAS: Normal; no mass or surrounding fluid. SPLEEN: Normal size. No focal lesion. ADRENAL GLANDS: Nodular contour of the left adrenal gland without focal lesion identified. KIDNEYS AND URETERS: The kidneys are normal in size, shape, and attenuation. No hydronephrosis, hydroureter, or calculi. Bilateral subcentimeter hypodensities, too small to characterize but likely represent simple cysts. BLADDER: Partially decompressed and contrast filled. GASTROINTESTINAL TRACT: Stomach and small bowel are nondilated. Anastomotic suture line in the distal sigmoid colon. The colon is largely decompressed, limiting assessment for wall thickening. No pericolonic inflammatory changes. Appendix is not identified. No inflammatory changes in the right lower quadrant to suggest appendicitis. PERITONEUM/RETROPERITONEUM: Large hyperattenuating collection in the left lateral abdomen which appears contiguous with the lateral abdominal wall musculature, including the transversus abdominis and internal oblique musculature. This collection measures approximately 13.2 x 7.6 x 12.3 cm (AP by TV by CC). No evidence of blush within the collection to suggest active bleed. There is associated nonorganized hyperattenuating fluid and stranding along the left paracolic gutter extending from the collection and anterior to the psoas and iliacus musculature into the left pelvic sidewall. VASCULAR STRUCTURES: No evidence of aortic or iliac injury. The inferior vena cava is intact. ACTIVE BLEEDING: No. LYMPH NODES: Mildly enlarged 1.3 cm left common iliac lymph node ([id number]). Additional appearance of few right external iliac enlarged lymph nodes, for example a 1.1 cm lymph node (308:1000). No bulky lymphadenopathy. PELVIC VISCERA: Prostate is enlarged measuring up to 7 cm in transverse dimension. FREE FLUID: Small volume hemoperitoneum as described above. ABDOMINAL WALL: Small fat-containing bilateral inguinal hernias. THORACIC AND LUMBAR SPINE: No acute fracture or malalignment in the thoracolumbar spine. Normal sagittal alignment of the thoracic and lumbar spine. Vertebral body heights are normal. Posterior elements are intact. Mild multilevel degenerative spondylosis in the thoracolumbar spine. OTHER OSSEOUS STRUCTURES: The imaged portions of the clavicles, scapulae, and proximal humeri are intact. Displaced fractures of the left eighth and ninth lateral ribs and the left 10th posterolateral rib. Sternum is intact. No sacral or pelvic fracture. The hips and imaged portions of the proximal femurs are intact. IMPRESSION: 1. Large hematoma in the left lateral abdomen appearing appears contiguous with the abdominal wall musculature, most consistent with intramuscular hematoma. The hematoma measures up to 13.2 cm. No evidence of active arterial bleed. Small volume nonorganized blood products are observed surrounding the collection and tracking into the left pelvic sidewall. 2. Unchanged moderate left hemothorax. 3. Displaced left-sided rib fractures as detailed above. Fractures of the posterolateral eighth, ninth and 10th left ribs. 4. No fracture or malalignment in the thoracolumbar spine. 5. Few prominent and mildly enlarged pelvic lymph nodes, likely reactive. 6. Similar aneurysmal dilation of the ascending thoracic aorta measuring up to 4.9 cm in AP dimension. This critical result was discussed with Dorie Mariano DO at 2:55 AM on 10/12/2024 and it was ascertained that the content and urgency of the report was understood at the time of direct communication. Interpreted by: Rhea Blake MD [employer] Grader I personally reviewed the images and the resident's preliminary report and AGREE with the report as it is now presented ([email or web address]). us Randell Adler MD IMG CT ORDERABLES Final R esult * CT Cervical spine w/o contrast (10/12/2024 1:05 AM EDT) Anatomical Region Laterality Modality C-spine Computed Tomogra phy 10/12/2024 12:3 4 AM EDT Impressions 10/12/2024 2:52 AM EDT 1. No acute fracture or traumatic malalignment of the cervical spine. Multilevel degenerative changes as described above and stepwise 2 mm anterolisthesis of C2-C3, C3-C4 and C4-C5. 2. Partially visualized left hemothorax, better seen on dedicated same-day chest CT. Attending addendum/clarification: Partial visualization of an intermediate density left pleural fluid collection is noted (30 Hounsfield unit). This fluid collection may represent proteinaceous and/or sanguinous fluid. Interpreted by: Rhea Blake MD Broom[employer] Grader I personally reviewed the images and the resident's preliminary report and AGREE with the report as it is now presented ([email or web address]). Narrative 10/12/2024 2:52 AM EDT EXAMINATION: CT CERVICAL SPINE WITHOUT CONTRAST CLINICAL INFORMATION: Fall, trauma COMPARISON: None available. TECHNIQUE: Noncontrast CT examination of the cervical spine was performed. Sagittal and coronal reformatted images were obtained on the technologist's workstation. This CT examination was performed using dose optimization techniques as appropriate, variously including the following: *Automated exposure control *Adjustment of mA and/or kV according to patient size (this includes techniques or standardized protocols for targeted exams where dose is matched to indication/reason for exam; i.e. extremities or head) *Use of iterative reconstruction technique DLP: 460.8 mGy-cm FINDINGS: The atlantooccipital and atlantoaxial articulations remain well aligned. No acute fractures of the vertebral bodies or posterior elements. The vertebral body heights are maintained. Stepwise 2 mm anterolisthesis of C2 on C3, C3 on C4 and C4 on C5. Intervertebral discs are narrowed at multiple levels with associated endplate and uncovertebral osteophytes. Degenerative facet arthropathy is present at multiple levels, most severe at C3-C4. No significant prevertebral soft tissue swelling. The thyroid gland and remaining cervical soft tissues are unremarkable. Partially visualized left hemothorax, better seen on same-day dedicated chest CT. The visualized lung bases are otherwise unremarkable. Procedure Note Jim Song MD - 10/12/2024 EXAMINATION: CT CERVICAL SPINE WITHOUT CONTRAST CLINICAL INFORMATION: Fall, trauma COMPARISON: None available. TECHNIQUE: Noncontrast CT examination of the cervical spine was performed. Sagittal and coronal reformatted images were obtained on the technologist's workstation. This CT examination was performed using dose optimization techniques as appropriate, variously including the following: *Automated exposure control *Adjustment of mA and/or kV according to patient size (this includes techniques or standardized protocols for targeted exams where dose is matched to indication/reason for exam; i.e. extremities or head) *Use of iterative reconstruction technique DLP: 460.8 mGy-cm FINDINGS: The atlantooccipital and atlantoaxial articulations remain well aligned. No acute fractures of the vertebral bodies or posterior elements. The vertebral body heights are maintained. Stepwise 2 mm anterolisthesis of C2 on C3, C3 on C4 and C4 on C5. Intervertebral discs are narrowed at multiple levels with associated endplate and uncovertebral osteophytes. Degenerative facet arthropathy is present at multiple levels, most severe at C3-C4. No significant prevertebral soft tissue swelling. The thyroid gland and remaining cervical soft tissues are unremarkable. Partially visualized left hemothorax, better seen on same-day dedicated chest CT. The visualized lung bases are otherwise unremarkable. IMPRESSION: 1. No acute fracture or traumatic malalignment of the cervical spine. Multilevel degenerative changes as described above and stepwise 2 mm anterolisthesis of C2-C3, C3-C4 and C4-C5. 2. Partially visualized left hemothorax, better seen on dedicated same-day chest CT. Attending addendum/clarification: Partial visualization of an intermediate density left pleural fluid collection is noted (30 Hounsfield unit). This fluid collection may represent proteinaceous and/or sanguinous fluid. Interpreted by: Rhea Blake MD Broom[employer] Grader I personally reviewed the images and the resident's preliminary report and AGREE with the report as it is now presented ([email or web address]). Randell Adler MD IMG CT ORDERABLES Final R esult * (ABNORMAL) Hemoglobin and hematocrit, blood (10/11/2024 8:10 PM EDT) Hematocrit 25.0(L) 39.0 - 54.0 % 10/11/2024 8:27 PM EDT [facility] Hemoglobin 8.9(L) 13.0 - 17.7 g/dL 10/11/2024 8:27 PM EDT [facility] Blood Blood specimen / Unknown 10/11/2024 8:10 PM EDT 10/11/2024 8:19 PM EDT us Randell Adler MD LAB BLOOD ORDERABLES Jalyn l Result [address] [address], [address] [address] * CT Head w/o contrast (10/11/2024 7:38 PM EDT) Anatomical Region Laterality Modality Head Computed Tomogra phy 10/11/2024 7:27 PM EDT Impressions 10/11/2024 8:05 PM EDT No acute intracranial findings. I personally reviewed the images and the resident's preliminary report and AGREE with the report as it is now presented ([email or web address]). Narrative 10/11/2024 8:05 PM EDT EXAMINATION: CT HEAD WITHOUT IV CONTRAST CLINICAL INFORMATION: Reason for Exam:; AMS; CC Recipients:; Randell Adler MD - Wander Jose (authorizing provider); PCP: Anthony Boyle DO ([place], [place]) COMPARISON: None. TECHNIQUE: Contiguous axial imaging was performed from the skull base to vertex without intravenous contrast. Coronal and sagittal reformatted images were obtained. This CT examination was performed using dose optimization techniques as appropriate, variously including the following: * Automated exposure control * Adjustment of mA and/or kV according to patient size (this includes techniques or standardized protocols for targeted exams where dose is matched to indication/reason for exam; i.e. extremities or head) * Use of iterative reconstruction technique DLP: 793.84 mGy-cm. FINDINGS: There is no evidence of acute intracranial hemorrhage or territorial infarction. Suarez to white matter differentiation is well preserved. No abnormal mass effect or midline shift is seen. Mild parenchymal atrophy. No hydrocephalus.. Intact soft tissues, bones, orbits. Mild opacification present sinuses. Clear mastoids . Procedure Note Michoacano Garcia MD - 10/11/2024 EXAMINATION: CT HEAD WITHOUT IV CONTRAST CLINICAL INFORMATION: Reason for Exam:; AMS; CC Recipients:; MD Aida De Dios (authorizing provider); PCP: Anthony Boyle DO ([place], [place]) COMPARISON: None. TECHNIQUE: Contiguous axial imaging was performed from the skull base to vertex without intravenous contrast. Coronal and sagittal reformatted images were obtained. This CT examination was performed using dose optimization techniques as appropriate, variously including the following: * Automated exposure control * Adjustment of mA and/or kV according to patient size (this includes techniques or standardized protocols for targeted exams where dose is matched to indication/reason for exam; i.e. extremities or head) * Use of iterative reconstruction technique DLP: 793.84 mGy-cm. FINDINGS: There is no evidence of acute intracranial hemorrhage or territorial infarction. Suarez to white matter differentiation is well preserved. No abnormal mass effect or midline shift is seen. Mild parenchymal atrophy. No hydrocephalus.. Intact soft tissues, bones, orbits. Mild opacification present sinuses. Clear mastoids . IMPRESSION: No acute intracranial findings. I personally reviewed the images and the resident's preliminary report and AGREE with the report as it is now presented ([id number]). us Randell Adler MD IMG CT ORDERABLES Final R esult * (ABNORMAL) Urinalysis with Reflex to Microscopic and Culture (10/11/2024 6:47 PM EDT) Color Straw 10/11/2024 7:11 PM [facility] Clarity Clear 10/11/2024 7:11 PM [facility] Specific [place] 1.008 1.003 - 1.030 10/11/2024 7:11 PM [facility] pH 6.0 5.0 - 8.0 10/11/2024 7:11 PM [facility] Leukocyte Esterase Negative Negative 10/11/2024 7:11 PM [facility] Nitrite Negative Negative 10/11/2024 7:11 PM [facility] Protein Negative Negative 10/11/2024 7:11 PM [facility] Glucose 0 0 - 99 mg/dL 10/11/2024 7:11 PM [facility] Ketones Trace(A) Negative 10/11/2024 7:11 PM [facility] Blood Negative Negative 10/11/2024 7:11 PM [facility] Bilirubin Negative Negative 10/11/2024 7:11 PM [facility] WBC 0 0 - 4 per hpf 10/11/2024 7:11 PM [facility] RBC 0 0 - 4 per hpf 10/11/2024 7:11 PM [facility] Urine Voided urine specimen / Unknown 10/11/2024 6:47 PM EDT 10/11/2024 6:57 PM EDT us Randell Adler MD URINE ORDERABLES Final Re sult Performing Organization Address [facility]/ZIP Co de Phone Number [address] [address], [address] [address] * Sodium, Urine, Random (10/11/2024 6:47 PM EDT) Sodium, Urine Random <20 mmol/L 10/11/2024 7:20 PM EDT [facility] Comment:Reference range not established for random specimen. Urine Urine specimen / Unknown 10/11/2024 6:47 PM EDT 10/11/2024 6:59 PM EDT us Randell Adler MD URINE ORDERABLES Final Re sult Performing Organization Address [facility] Co de Phone Number [address] [address], [address] [address] * Potassium, Urine, Random (10/11/2024 6:47 PM EDT) Potassium, Urine (Random) 9 mmol/L 10/11/2024 7:20 PM EDT [facility] Comment:Reference range not established for random specimen. Urine Urine specimen / Unknown 10/11/2024 6:47 PM EDT 10/11/2024 6:59 PM EDT us Randell Adler MD URINE ORDERABLES Final Re sult Performing Organization Address City/[facility]/ZIP Co de Phone Number [address] [address], [address] [address] * Osmolality, Urine (10/11/2024 6:47 PM EDT) Osmolality, Urine 213 50 - 1,200 mOsm/Kg 10/11/2024 7:43 PM EDT [facility] Urine Urine specimen / Unknown 10/11/2024 6:47 PM EDT 10/11/2024 6:59 PM EDT us Randell Adler MD URINE ORDERABLES Final Re sult Performing Organization Address [facility] [place] [address], [place] [address] * Chloride, Urine, Random (10/11/2024 6:47 PM EDT) Chloride, Urine, Random <20 mmol/L 10/11/2024 7:20 PM EDT [facility] Comment:Reference range not established for random specimen. Urine Urine specimen / Unknown 10/11/2024 6:47 PM EDT 10/11/2024 6:59 PM EDT Randell Adler MD URINE ORDERABLES Final Re sult Performing Organization Address [facility] [place] [address], [place] [address] * ECG 12 lead (10/11/2024 2:57 PM EDT) Ventricular rate 84 BPM EKG [facility] Atrial rate 84 BPM EKG [facility] P-R interval 200 ms EKG [facility] QRS duration 144 ms EKG [facility] Q-T interval 392 ms EKG [facility] QTC calculation (Bazett) 464 ms EKG [facility] P axis 40 degrees EKG [facility] R axis -2 degrees EKG [facility] T axis 14 degrees EKG [facility] 10/11/2024 2:57 PM EDT Narrative EKG [facility] - 10/11/2024 4:02 PM EDT Normal sinus rhythm Right bundle branch block Abnormal ECG When compared with ECG of 06-Feb-2024 23:52, Right bundle branch block has replaced Non-specific intra-ventricular conduction block Confirmed by MD Roy Komsu ([id number]) on 10/11/2024 4:02:30 PM Procedure Note Carlos Roy MD - 10/11/2024 Normal sinus rhythm Right bundle branch block Abnormal ECG When compared with ECG of 06-Feb-2024 23:52, Right bundle branch block has replaced Non-specific intra-ventricularconduction block Confirmed by MD Roy Komsu ([id number]) on 10/11/2024 4:02:30 PM us Pedrito Lino MD ECG ORDERABLES Final Result EKG [facility] * CT Thorax w/o contrast (10/11/2024 2:47 PM EDT) Anatomical Region Laterality Modality Chest Computed Tomogra phy 10/11/2024 2:37 PM EDT Impressions 10/11/2024 2:57 PM EDT 1. Aneurysmal prominence of the ascending thoracic aorta with calcification of the aortic valve and moderate size left pleural effusion seen. Narrative 10/11/2024 2:57 PM EDT EXAM: CT CHEST WITHOUT IV CONTRAST HISTORY: pain fall L side COMPARISON: Chest x-ray 02/07/2024 TECHNIQUE: Helical CT of the chest without contrast was performed with multiplanar and MIP reconstructions. This exam was performed according to our departmental dose-optimization program, which includes automated exposure control, adjustment of the mA and/or KV according to the patient's size and/or use of iterative reconstruction technique. FINDINGS: Support Devices: None. Neck Base: Within normal limits. Mediastinum/Axillae: No enlarged lymph nodes or masses. Esophagus: Unremarkable. Vessels: Ascending thoracic aorta is aneurysmally prominent, measuring approximately 5 cm. Main pulmonary artery is of normal caliber. Mild calcific atherosclerosis. Heart/Coronaries: No visible coronary calcification. Calcification of the aortic valve. Bones/Soft Tissues: Degenerative changes of the lower cervical spine. Thoracic spondylosis. Upper Abdomen: Previous cholecystectomy. Gynecomastia. Lungs/Pleura: Moderate size left pleural effusion. Nonspecific left lower lobe interstitial prominence could be related to atelectasis, scarring, or infiltrate. Right middle lobe and left lingula suspected atelectasis. Nonspecific right lower lobe interstitial prominence also noted, less prominent, and could be related to atelectasis as well. Central Airways: Clear. Suspender Maker: Unremarkable. Procedure Note Anthony Barbour MD - 10/11/2024 EXAM: CT CHEST WITHOUT IV CONTRAST HISTORY: pain fall L side COMPARISON: Chest x-ray 02/07/2024 TECHNIQUE: Helical CT of the chest without contrast was performed with multiplanar and MIP reconstructions. This exam was performed according to our departmental dose-optimization program, which includes automated exposure control, adjustment of the mA and/or KV according to the patient's size and/or use of iterative reconstruction technique. FINDINGS: Support Devices: None. Neck Base: Within normal limits. Mediastinum/Axillae: No enlarged lymph nodes or masses. Esophagus: Unremarkable. Vessels: Ascending thoracic aorta is aneurysmally prominent, measuring approximately 5 cm. Main pulmonary artery is of normal caliber. Mild calcific atherosclerosis. Heart/Coronaries: No visible coronary calcification. Calcification of the aortic valve. Bones/Soft Tissues: Degenerative changes of the lower cervical spine. Thoracic spondylosis. Upper Abdomen: Previous cholecystectomy. Gynecomastia. Lungs/Pleura: Moderate size left pleural effusion. Nonspecific left lower lobe interstitial prominence could be related to atelectasis, scarring, or infiltrate. Right middle lobe and left lingula suspected atelectasis. Nonspecific right lower lobe interstitial prominence also noted, less prominent, and could be related to atelectasis as well. Central Airways: Clear. Suspender Maker: Unremarkable. IMPRESSION: 1. Aneurysmal prominence of the ascending thoracic aorta with calcification of the aortic valve and moderate size left pleural effusion seen. Serena DELACRUZ [facility] [place] ORDERABLES Final R esult * (ABNORMAL) Complete Blood Count, with Differential (10/11/2024 2:38 PM EDT) White Blood Cell Count 11.1(H) 4.0 - 11.0 Thou/uL 10/11/2024 2:55 PM EDT [facility] Platelet Count 203 150 - 450 Thou/uL 10/11/2024 2:55 PM EDT [facility] Hemoglobin 9.6(L) 13.0 - 17.7 g/dL 10/11/2024 2:55 PM [facility] Hematocrit 26.6(L) 39.0 - 54.0 % 10/11/2024 2:55 PM [facility] Red Blood Cell Count 2.96(L) 4.50 - 6.20 Mil/uL 10/11/2024 2:55 PM [facility] MCV 90 80 - 100 fL 10/11/2024 2:55 PM [facility] MCH 32.4(H) 27.0 - 31.0 pg 10/11/2024 2:55 PM [facility] MCHC 36.1(H) 30.0 - 36.0 g/dL 10/11/2024 2:55 PM [facility] RDW 12.1 11.5 - 14.5 % 10/11/2024 2:55 PM [facility] MPV 8.9 7.5 - 12.5 fL 10/11/2024 2:55 PM [facility] Neutrophils Auto 63.8 % 10/12/19 2:55 PM [facility] Immature Granulocytes 0.6 % 10/11/2024 2:55 PM [facility] Lymphocytes Auto 23.1 % 10/12/19 2:55 PM [facility] Monocytes Auto 11.7 % 10/11/2024 2:55 PM [facility] Eosinophils Auto 0.6 % 10/12/19 2:55 PM [facility] Basophils Auto 0.2 % 10/11/2024 2:55 PM [facility] Abs Neutrophils Auto 7.06 2.00 - 7.50 Thou/uL 10/11/2024 2:55 PM [facility] Abs Immature Granulocytes 0.07 0.00 - 0.10 Thou/uL [facility] Lymphocytes Auto 2.55 1.50 - 4.50 Thou/uL [facility] Abs Monocytes Auto 1.29 0.20 - 1.50 Thou/uL 10/[facility]24 [facility] Abs Eosinophils Auto 0.07 0.00 - 0.70 Thou/uL 10/11/2024 2:55 PM EDT [facility] Abs Basophils Auto 0.02 0.00 - 0.20 Thou/uL 10/11/2024 2:55 PM EDT [facility] Blood Blood specimen / Unknown 10/11/2024 2:38 PM EDT 10/11/2024 2:47 PM EDT us Serena L Sirrine PA LAB BLOOD ORDERABLES Jalyn l Result Performing Organization Address City/[facility] [place] [address], [place] [address] * (ABNORMAL) OSMOLALITY (10/11/2024 2:38 PM EDT) Osmolality, Serum/Plasma 255(L) 275 - 295 mOsm/Kg 10/11/2024 7:44 PM EDT [facility] 10/11/2024 2:38 PM EDT 10/11/2024 2:47 PM EDT us Serena L Sirrine PA LAB BLOOD ORDERABLES Jalyn l Result Performing Organization Address [facility] [place] [address], [place] [address] from Last 3 Months Insurance MEDICARE PART A & B [facility] MEDICARE [address] [place] [id number] Advance Directives * Full Code (Latest Code Status on File) Date Activated Date Inactivated Comments 10/12/2024 4:34 AM * Full Code Date Activated Date Inactivated Comments 10/21/2023 10:23 AM 02/06/2024 11:42 PM * Full Code Date Activated Date Inactivated Comments 07/01/2023 4:20 PM 10/21/2023 2:10 AM * Full Code Date Activated Date Inactivated Comments 05/01/2023 10:13 PM 07/01/2023 3:28 PM Question Answer Comments Decision Thoroughly Discussed with: Patient * Full Code Date Activated Date Inactivated Comments 04/30/2023 6:13 PM 05/01/2023 10:04 PM Care Teams [employer] Control Systems Engineer Relationship Specialty Start Date End Date Anthony Boyle DO [address] [facility] [address] [place] [address] PCP - General 02/06/24
[2024-11-27 13:42] LABS: MANUAL DIFF FLAG NO
[2024-11-27 14:21] LABS: Basophils Percent Auto 0.4 % (0-2); Eosinophils Absolute Auto 0.1 X10*3/uL (0.0-0.4); Eosinophils Percent Auto 1.5 % (0-4); Hematocrit 41.8 % (42.0-52.0); Hemoglobin 14.9 g/dl (14.0-18.0); Imm Gran Abs Auto 0.02 X10*3/uL (0.00-0.03); Imm Gran Pct Auto 0.2 % (0.0-0.4); Lymphocytes Absolute Auto 1.4 X10*3/uL (1.2-4.9); Lymphocytes Percent Auto 16.9 % (20-40); Mean Corpuscular HGB Conc 35.6 g/dl (31.0-36.0); Mean Corpuscular Hemoglobin 32.7 pg (27.0-33.0); Mean Corpuscular Volume 91.7 fL (80.0-98.0); Mean Platelet Volume 8.5 fL (9.4-12.4); Neutrophils Absolute Auto 5.7 x10*3/uL (2.0-8.3); Platelet Count 283 X10*3/uL (160-400); Red Blood Count 4.56 X10*6/uL (4.60-5.80); White Blood Count 8.2 X10*3/uL (4.8-10.8)
== END 2024-11-27 13:30 | disposition home or self-care (01) ==
LOC: HO.XRAY 13:29
PROVIDERS: PCP Internal Medicine; Visit Provider Internal Medicine
DX: S20.212A Contusion of left front wall of thorax, initial encounter (principal)
CPT/HCPCS: 36415; 71101; 85025

== ENCOUNTER → 2024-11-27 14:00 | Outpatient (BNV) | payer MEDICARE, SELFPAY | PROVIDERS: PCP Internal Medicine; Visit Provider Radiology Diagnostic Radiology | DX: S22.42XD Multiple fractures of ribs, left side, subsequent encounter for fracture with routine healing (principal); J90 Pleural effusion, not elsewhere classified | CPT/HCPCS: 71101 ==